=== PATIENT | male | born 1955 | race Caucasian/White ===

== ENCOUNTER 2019-10-23 06:54 | Day surgery (SDC) | payer BC ==
[~2019-10-23] VITALS: Ht 180.3 cm; Wt 95.5 kg
[~2019-10-23 06:54] MED LIST: INSU100I13 SQ; INSU100V31 SQ
[2019-10-23] MEDS ORDERED: LIDOCAINE 1% PF 2 ML VIAL. ID PRN (07:00)
[2019-10-23] MEDS ORDERED: fentaNYL PF VIAL 100 MCG/2 ML VIAL IV PRN (07:00)
[2019-10-23] MEDS ORDERED: IV RINGERS,LACTATED 1000ML 1,000 ML IV SCH (07:00)
[2019-10-23] MEDS ORDERED: HYDROmorphone 2 MG/ML VIAL IV PRN (07:00)
[2019-10-23] MEDS ORDERED: ONDANSETRON PF 4 MG/2 ML VIAL. IV PRN (07:00)
[2019-10-23] MEDS ORDERED: PROCHLORPERAZINE 10 MG/2 ML VIAL. IV PRN (07:00)
[2019-10-23] MEDS ORDERED: MORPHINE SULFATE 2 MG/ML VIAL. IV PRN (07:00)
[2019-10-23] MEDS: INSULIN LISPRO 100 UNIT/ML 3ML VIAL for OP,RR ONLY. SQ PRN ×3 (08:04→10:47)
--- NOTE | 2019-10-23 08:48 | RAD ---
EXAM: Neck sonogram. HISTORY: Abscess. TECHNIQUE: Sonographic imaging of the neck was performed. COMPARISON: None. FINDINGS: There is a heterogeneous complex fluid collection with overlying skin thickening within the posterior neck at the base of the scalp measuring 2.2 x 1.8 x 0.9 cm. IMPRESSION: 2.2 cm complex fluid collection within the posterior neck at the base of the scalp with overlying skin thickening. If there is cellulitis in this location, this may be an abscess/phlegmon. Correlate with physical exam findings. Electronically signed by: Evelyn Campbell MD (10/23/2019 8:45 AM) [facility]
[2019-10-23] MEDS ORDERED: BUPIVACAINE-EPI 0.5%-1:200000 MPF 30 ML VIAL. ONE (09:15)
[2019-10-23] MEDS ORDERED: SUCCINYLCHOLINE 200 MG/10 ML VIAL. ONE (09:29)
[2019-10-23] MEDS ORDERED: ROCURONIUM 50 MG/5 ML VIAL. ONE (09:29)
[2019-10-23] MEDS ORDERED: fentaNYL PF VIAL 100 MCG/2 ML VIAL ONE (09:30)
[2019-10-23] MEDS ORDERED: ceFAZolin 2GM PREMIX 2 GM/50 ML BAG IV ONE (10:00)
[2019-10-23] MEDS ORDERED: NEOMY/BACITR/POLYMYXIN OINT PACKET. TP ONE (10:08)
[2019-10-23] MEDS ORDERED: DEXAMETHASONE SOD PHOS 4 MG/ML VIAL ONE (10:12)
[2019-10-23] MEDS ORDERED: ONDANSETRON PF 4 MG/2 ML VIAL. ONE (10:12)
[2019-10-23] MEDS ORDERED: LIDOCAINE 2% PF 5 ML VIAL. ONE (10:12)
[2019-10-23] MEDS ORDERED: PROPOFOL 20 ML IV ONE (10:12)
[2019-10-23] MEDS ORDERED: FAMOTIDINE 20 MG/2 ML VIAL ONE (10:12)
[2019-10-23] MEDS ORDERED: SURGICEL HEMOSTAT 4X8 EACH. ONE (10:13)
--- NOTE | 2019-10-23 10:35 | DISCH ---
DISCHARGE INSTRUCTIONS Condition on Discharge Condition on Discharge: Stable Activity After Discharge Activity Instructions for Disc: Activity as tolerated, Avoid exertion Driving Instructions after Dis: Do not drive Diet after Discharge Diet after Discharge: Diabetic No Calorie Level Wound Incision Care Wound/Incision Care: Ice to area for comfort Other wound/incision instructi: leave dressing on, reinforce if needed Follow-Up Follow up with: Wolf 10/25 in office LEON CHOW MD Oct 23, 2019 10:34
--- NOTE | 2019-10-23 10:38 | PDOC ---
BRIEF OPERATIVE NOTE Date: Oct 23, 2019 Pre-Op Diagnosis abscess, posterior neck Post-Op Diagnosis same Procedure Performed excisional debridement of skin, subcutaneous tissue Surgeon Wolf Anesthesia Type: General Blood Loss 10cc IV Fluid 800cc Specimens Obtained cultures, skin and subcutaneous tissue posterior neck 7x5x2 cm Findings sebaceous cyst/abscess Complications none LEON CHOW MD Oct 23, 2019 10:38
[2019-10-23] MEDS: fentaNYL PF VIAL 100 MCG/2 ML VIAL IV PRN ×2 (10:57→11:03)
[2019-10-23] MEDS ORDERED: OXYC1TAB15 PO (11:02)
[2019-10-23] MEDS ORDERED: oxyCODONE/APAP 5/325 1 TAB TABLET PO ONE (11:15)
[2019-10-23] MEDS ORDERED: SODI473S25 MC (11:19)
[2019-10-23 11:25] VITALS: BP 138/82
--- NOTE | 2019-10-23 13:34 | OP ---
DATE OF SURGERY: 10/23/2019 PREOPERATIVE DIAGNOSIS: Abscess, posterior neck. POSTOPERATIVE DIAGNOSIS: Abscess, posterior neck. PROCEDURE: Excisional debridement of skin and subcutaneous tissue, posterior neck. SURGEON: Leon Chow MD ANESTHESIA: General endotracheal. ESTIMATED BLOOD LOSS: 10 mL. INTRAVENOUS FLUIDS: 800 mL. INDICATIONS FOR PROCEDURE: The patient is a 64-year-old insulin-dependent diabetic with an abscess posteriorly in the midline base of his skull. He is brought for debridement. DESCRIPTION OF PROCEDURE: The patient was brought to the operating suite, given a general endotracheal anesthetic, and placed in the prone position. Posterior neck was prepped and draped in usual sterile fashion. An elliptical incision was made with cautery and the underlying process was removed en bloc. Cultures were taken. Wound was irrigated with saline and checked for hemostasis. When present and a correct sponge count was obtained, the wound was dressed with Surgicel, 0.5-inch plain Nu Gauze soaked in saline, antibiotic ointment, 4x4s, and tape. The patient was taken out of the prone position, awakened from his anesthetic, and taken to the recovery room in satisfactory condition. LEON CHOW MD DR: SERGIO/fausto JOB#: [id number] / [id number]
--- NOTE | 2019-10-24 18:06 | PATHOLOGY ---
[facility] Accession Number: [id number] . 01 Material submitted: . neck - SKIN AND SUBCUTANEOUS TISSUE, POSTERIOR NECK. Modifiers: posterior . 01 Clinical history: . posterior neck abscess . 02 Diagnosis: Skin, subcutaneous tissue, and skeletal muscle tissue, incision and drainage posterior neck abscess - Acute cellulitis/abscess. 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 02 Electronically signed: . Marcel Salas MD, Pathologist NPI- [id number] . 01 Gross description: . The specimen is received in formalin, labeled "Jesús Smith, posterior neck" and consists of an elongate segment of skin measuring 3.5 x 0.5 cm which excised to a maximum depth of 2.8 cm. Sectioning reveals probable abscess and medical customer service representative sections are submitted in A1-A2. (SDY; 10/23/2019) SYU/SYU 10/23/2019 1641 Local . 02 Pathologist provided ICD-10: L02.11 . 02 CPT . 820955 Specimen Comment: A courtesy copy of this report has been sent to [phone], [phone] Specimen Comment: [id number] Specimen Comment: Report sent to / DR PATTERSON Performed at: 01 [facility] [address], [place] [id number] MD Semaj Crowley MD Phone: [phone] Performed at: 02 [facility] [address], [place] [id number] MD Marcel Salas MD Phone: [phone]
== END 2019-10-23 12:00 | disposition home or self-care (01) ==
LOC: SURG 06:54
PROVIDERS: ATTEND Surgery
DX: L02.11 Cutaneous abscess of neck (principal); L03.221 Cellulitis of neck; K31.89 Other diseases of stomach and duodenum; E11.9 Type 2 diabetes mellitus without complications; Z98.890 Other specified postprocedural states; Z91.041 Radiographic dye allergy status; Z79.4 Long term (current) use of insulin; Z79.899 Other long term (current) drug therapy
CPT/HCPCS: 11424; 36415; 76536; 82040; 82962; 87071; 87075; J0330; J1100; J2001; J2405; J2704; J3010; J3490; A7015; J0696; A4461

== ENCOUNTER 2020-02-12 10:36 | Inpatient (IN) | payer BC ==
[~2020-02-12] VITALS: Ht 177.8 cm; Wt 93.6 kg
[~2020-02-12 10:36] MED LIST changes: +OXYC1TAB15 PO; +SODI473S25 MC
[2020-02-12] MEDS ORDERED: IV NORMAL SALINE 1000ML BAG 1,000 ML IV SCH (11:58)
[2020-02-12] MEDS ORDERED: MORPHINE SULFATE 4 MG/ML VIAL. IV/SQ PRN (12:00)
[2020-02-12 12:28] LABS: BASO % 0 % (0-3); EOS # 0.1 x10^3/uL (0.0-0.7); EOS % 0 % (0-3); HEMATOCRIT 47.5 % (39.0-53.0); HEMOGLOBIN 15.7 g/dL (13.0-17.5); LYMPH # 1.3 x10^3/uL (1.0-4.8); LYMPH % 5 % (24-48); MEAN CORPUSCULAR HEMOGLOBIN 30 pg (25-35); MEAN CORPUSCULAR HGB CONC 33 g/dL (31-37); MEAN CORPUSCULAR VOLUME 92 fL (79-100); MONO # 2.1 x10^3/uL (0.0-1.1); MONO % 9 % (0-9); NEUT % 85 % (31-73); PLATELET COUNT 302 x10^3/uL (140-400); RED BLOOD COUNT 5.17 x10^6/uL (4.30-5.70); RED CELL DISTRIBUTION WIDTH 13.7 % (11.5-14.5); WHITE BLOOD COUNT 23.5 x10^3/uL (4.0-11.0)
[2020-02-12 12:45] LABS: CALCIUM 9.5 mg/dL (8.5-10.1); CREATININE 1.7 mg/dL (0.7-1.3); POTASSIUM 4.4 mmol/L (3.5-5.1)
[2020-02-12 12:49] LABS: ALBUMIN 2.6 g/dL (3.4-5.0); ALBUMIN/GLOBULIN RATIO 0.5 (1.0-1.7); TOTAL BILIRUBIN 1.1 mg/dL (0.2-1.0); TOTAL PROTEIN 7.9 g/dL (6.4-8.2)
[2020-02-12] MEDS ORDERED: PIPERACILLIN/TAZOBACTAM 4.5 GM in IV NORMAL SALINE 100ML 100 ML IV ONE (13:00)
[2020-02-12] MEDS ORDERED: VANCOMYCIN 2 GM in IV NORMAL SALINE 500ML BAG 500 ML IV ONE (13:00)
[2020-02-12] MEDS ORDERED: IOHEXOL 300 MG/ML 100ML VIAL. IV ONE (13:15)
[2020-02-12] MEDS ORDERED: VANCOMYCIN 1.25 GM in IV NORMAL SALINE 250ML 250 ML IV ONE (13:15)
--- NOTE | 2020-02-12 13:43 | RAD ---
Exam: CT abdomen/pelvis with intravenous contrast Indication: Pilonidal cyst. Comparison: None Technique: Helical CT imaging performed of the abdomen and pelvis after the intravenous administration of 60 mL Omnipaque 300 intravenous contrast. Sagittal and coronal reformats were obtained. One or more of the following individualized dose reduction techniques were utilized for this examination: 1. Automated exposure control 2. Adjustment of the mA and/or kV according to patient size 3. Use of iterative reconstruction technique. Findings: The exam is limited by suboptimal patient positioning. Lower chest: Mild atelectasis in the medial right upper lobe and lingula. Heart is normal in size. There is calcific coronary artery atherosclerosis. Liver: The liver is normal in size without focal lesion. Gallbladder/Biliary Tree: Postcholecystectomy. Prominent common bile duct with distal tapering, likely related to postcholecystectomy state. Pancreas: Moderate fatty atrophy of the pancreas. Spleen: No splenomegaly. There is a calcified splenic granuloma. Adrenal Glands: The right adrenal gland is not visualized. Left adrenal gland is normal. Kidneys/Ureters/Bladder: There are surgical changes of right nephrectomy. Left kidney and ureter are normal. No hydronephrosis. Bladder is normal. Reproductive Organs: Prostate gland is normal. Stomach, small bowel, and colon: The stomach and small bowel are normal. There is sigmoid diverticulosis and questionable focal wall thickening in the sigmoid colon with subtle adjacent fat stranding (image [id number], series 2). The colon is otherwise normal. Appendix is normal. Vasculature: Abdominal aorta is normal in caliber. Lymph Nodes: Nonspecific 1.1 cm short axis malathi habitus lymph node. No suspicious lymphadenopathy. Peritoneum and retroperitoneum: No free fluid or free air. Bones: No acute fracture or suspicious osseous lesion. Lumbar facet arthrosis is noted. Miscellaneous: There is fat stranding and soft tissue thickening along the intergluteal cleft, greater on the left for there is a vague area of hypoattenuation in the subcutaneous soft tissue just deep to the skin that may be a poorly formed abscess. This measures roughly 5 x 2 x 4 cm (AP by transverse by CC) and extends anteriorly toward the perineum. Soft tissue thickening extends cranially to the lower sacrum. No definite perianal or perirectal abscess. Impression: 1. Limited exam due to patient positioning. 2. Fat stranding and soft tissue thickening along the intergluteal cleft on the left with a vague area of hypoattenuation just deep to the skin may be a poorly formed/developing abscess. This measures approximately 5 x 2 x 4 cm (AP by transverse by CC) and extends toward the perineum. No definite perianal or perirectal abscess. 3. Sigmoid diverticulosis with a short segment of questionable mild wall thickening and subtle pericolonic inflammation. Correlate clinically for acute diverticulitis. 4. Post right nephrectomy. Electronically signed by: Meghan Penaloza MD (02/12/2020 1:40 PM) [id number]
[2020-02-12] MEDS ORDERED: IV NORMAL SALINE 1000ML BAG 1,000 ML IV ONE (14:00)
[2020-02-12] MEDS ORDERED: IV NORMAL SALINE 500ML BAG 500 ML IV ONE (14:00)
[2020-02-12 14:18] LABS: % BANDS 14 % (0-9); % LYMPHS 4 % (24-48); % MONOS 7 % (0-10); % SEGS 75 % (35-66); PLT ESTIMATE ADEQUATE (ADEQUATE)
--- NOTE | 2020-02-12 15:01 | PHYS DOC ---
Past Medical History Past Medical History: Diabetes-Type II Smoking Status: Never Smoker Alcohol Use: None General Adult EDM: Chief Complaint: ABSCESS HPI: HPI: 64-year-old male past medical history significant for insulin-dependent diabetes, no known history of MRSA, presents to the ED with complaints of painful sore buttock lesion for the past 4 days. Patient reports he was in urgent care clinic yesterday and they attempted to "carlos it." Denies any active drainage. Was not started on any antibiotics. Now reports generalized weakne ss, anorexia, and subjective chills. Takes no routine steroids, no immunocompromise state. H/o abscess on his neck a few years ago. No h/o IVDU. ROS: Denies associated fever, cough, sore throat, n/v/d/c, neck stiffness, headache, chest pain, dyspnea, leg swelling, melena, hematochezia, midline back pain, dysuria, hematuria or genital swelling. Review of Systems: Review of Systems: Constitutional: Denies fever or chills. [] Eyes: Denies change in visual acuity. [] HENT: Denies nasal congestion or sore throat. [] Respiratory: Denies cough or shortness of breath. [] Cardiovascular: Denies chest pain or edema. [] GI: Denies abdominal pain, nausea, vomiting, bloody stools or diarrhea. [] : Denies dysuria. [] Musculoskeletal: Denies back pain or joint pain. [] Integument: Denies rash. [] Neurologic: Denies headache, focal weakness or sensory changes. [] Endocrine: Denies polyuria or polydipsia. [] Lymphatic: Denies swollen glands. [] Psychiatric: Denies depression or anxiety. [] Heart Score: Risk Factors: Risk Factors: DM, Current or recent (<one month) smoker, HTN, HLP, family history of CAD, obesity. Risk Scores: Score 0 - 3: 2.5% MACE over next 6 weeks - Discharge Home Score 4 - 6: 20.3% MACE over next 6 weeks - Admit for Clinical Observation Score 7 - 10: 72.7% MACE over next 6 weeks - Early Invasive Strategies Current Medications: Current Medications Medications (Trade) Dose Ordered Sig/Ty Start Time Stop Time Status Last Admin Dose Admin Iohexol (Omnipaque 300 Mg/ml) 60 ml 1X ONCE 02/12/20 13:15 02/12/20 13:16 DC 02/12/20 13:09 60 ML Morphine Sulfate (Morphine Sulfate) 4 mg PRN Q15MIN PRN 02/12/20 12:00 02/13/20 11:59 02/12/20 12:31 4 MG Piperacillin Sod/ Tazobactam Sod 4.5 gm/Sodium Chloride 100 ml @ 200 mls/hr 1X ONCE 02/12/20 13:00 02/12/20 13:29 DC 02/12/20 13:54 200 MLS/HR Sodium Chloride 500 ml @ 500 mls/hr 1X ONCE 02/12/20 14:00 02/12/20 14:59 02/12/20 14:09 500 MLS/HR Vancomycin HCl 1.25 gm/Sodium Chloride 250 ml @ 166.667 mls/hr 1X ONCE 02/12/20 13:15 02/12/20 14:44 DC 02/12/20 14:33 166.667 MLS/HR Vancomycin HCl 2 gm/Sodium Chloride 500 ml @ 250 mls/hr 1X ONCE 02/12/20 13:00 02/12/20 14:59 UNV Allergies: Allergies: Allergies Coded Allergies Type Severity Reaction Last Updated Verified yellow dye Allergy Intermediate Rash 10/22/19 Yes Physical Exam: PE: Constitutional: Well developed, well nourished, no acute distress, uncomfortable appearing, not toxic appearing HENT: Normocephalic, atraumatic, bilateral external ears normal, oropharynx moist, no oral exudates, nose normal. [] Eyes: P\\\\EOMI, conjunctiva normal, no discharge. [] Neck: Normal range of motion, no tenderness, supple, no stridor. [] Cardiovascular:Heart rate regular rhythm, no murmur [] Lungs & Thorax: Bilateral breath sounds clear to auscultation [] Abdomen: Bowel sounds normal, soft, no tenderness, no masses, no pulsatile masses. [] Skin: Warm, dry, no erythema, no rash. [] Back: No tenderness, no CVA tenderness. [] Extremities: No tenderness, no cyanosis, no clubbing, ROM intact, no edema. [] Neurologic: Alert and oriented X 3, normal motor function, normal sensory function, no focal deficits noted. [] Psychologic: Affect normal, judgement normal, mood normal. [] Rectal: Chaperoned by RN, bilateral induration with erythema over both gluteal clefts approximately 4 x 8 cm bilaterally, does not extend into the perineum with no erythema in the perineum, no palpable crepitus, at apex of gluteal fold -some scant yellow discharge-unable to fully express due to induration and pain Current Patient Data: Labs: Laboratory Tests Test 02/12/20 12:11 White Blood Count 23.5 x10^3/uL (4.0-11.0) H Red Blood Count 5.17 x10^6/uL (4.30-5.70) Hemoglobin 15.7 g/dL (13.0-17.5) Hematocrit 47.5 % (39.0-53.0) Mean Corpuscular Volume 92 fL (79-100) Mean Corpuscular Hemoglobin 30 pg (25-35) Mean Corpuscular Hemoglobin Concent 33 g/dL (31-37) Red Cell Distribution Width 13.7 % (11.5-14.5) Platelet Count 302 x10^3/uL (140-400) Neutrophils (%) (Auto) 85 % (31-73) H Lymphocytes (%) (Auto) 5 % (24-48) L Monocytes (%) (Auto) 9 % (0-9) Eosinophils (%) (Auto) 0 % (0-3) Basophils (%) (Auto) 0 % (0-3) Neutrophils # (Auto) 20.0 x10^3/uL (1.8-7.7) H Lymphocytes # (Auto) 1.3 x10^3/uL (1.0-4.8) Monocytes # (Auto) 2.1 x10^3/uL (0.0-1.1) H Eosinophils # (Auto) 0.1 x10^3/uL (0.0-0.7) Basophils # (Auto) 0.0 x10^3/uL (0.0-0.2) Segmented Neutrophils % 75 % (35-66) H Band Neutrophils % 14 % (0-9) H Lymphocytes % 4 % (24-48) L Monocytes % 7 % (0-10) Dohle Bodies Few Platelet Estimate Adequate (ADEQUATE) Prothrombin Time 14.0 SEC (11.7-14.0) Prothrombin Time INR 1.1 (0.8-1.1) Activated Partial Thromboplast Time 30 SEC (24-38) Sodium Level 127 mmol/L (136-145) L Potassium Level 4.4 mmol/L (3.5-5.1) Chloride Level 90 mmol/L (98-107) L Carbon Dioxide Level 17 mmol/L (21-32) L Anion Gap 20 (6-14) H Blood Urea Nitrogen 21 mg/dL (8-26) Creatinine 1.7 mg/dL (0.7-1.3) H Estimated GFR (Cockcroft-Gault) 41.0 BUN/Creatinine Ratio 12 (6-20) Glucose Level 453 mg/dL (70-99) H Lactic Acid Level 2.7 mmol/L (0.4-2.0) H Calcium Level 9.5 mg/dL (8.5-10.1) Total Bilirubin 1.1 mg/dL (0.2-1.0) H Aspartate Amino Transferase (AST) 33 U/L (15-37) Alanine Aminotransferase (ALT) 24 U/L (16-63) Alkaline Phosphatase 243 U/L (46-116) H Total Protein 7.9 g/dL (6.4-8.2) Albumin 2.6 g/dL (3.4-5.0) L Albumin/Globulin Ratio 0.5 (1.0-1.7) L Laboratory Tests 02/12/20 12:11 Laboratory Tests 02/12/20 12:11 Vital Signs: Vital Signs Date Time Temp Pulse Resp B/P (MAP) Pulse Ox O2 Delivery O2 Flow Rate FiO2 02/12/20 13:50 16 98 Room Air 02/12/20 11:40 98.2 111 145/76 (99) 98.2 EKG: EKG: [] Radiology/Procedures: Radiology/Procedures: IMAGING REPORT Signed PATIENT: MARIA LUISA MANLEY MACCOUNT: [id number] : 1955 LOCATION: ER AGE: 64 SEX: M EXAM STATUS: REG ER ORD. PHYSICIAN: ARINA PEARSON DO REASON: pilonidal? PROCEDURE: CT ABD PELV W/ IV CONTRST ONLY Exam: CT abdomen/pelvis with intravenous contrast Indication: Pilonidal cyst. Comparison: None Technique: Helical CT imaging performed of the abdomen and pelvis after the intravenous administration of 60 mL Omnipaque 300 intravenous contrast. Sagittal and coronal reformats were obtained. One or more of the following individualized dose reduction techniques were utilized for this examination: 1. Automated exposure control 2. Adjustment of the mA and/or kV according to patient size 3. Use of iterative reconstruction technique. Findings: The exam is limited by suboptimal patient positioning. Lower chest: Mild atelectasis in the medial right upper lobe and lingula. Heart is normal in size. There is calcific coronary artery atherosclerosis. Liver: The liver is normal in size without focal lesion. Gallbladder/Biliary Tree: Postcholecystectomy. Prominent common bile duct with distal tapering, likely related to postcholecystectomy state. Pancreas: Moderate fatty atrophy of the pancreas. Spleen: No splenomegaly. There is a calcified splenic granuloma. Adrenal Glands: The right adrenal gland is not visualized. Left adrenal gland is normal. Kidneys/Ureters/Bladder: There are surgical changes of right nephrectomy. Left kidney and ureter are normal. No hydronephrosis. Bladder is normal. Reproductive Organs: Prostate gland is normal. Stomach, small bowel, and colon: The stomach and small bowel are normal. There is sigmoid diverticulosis and questionable focal wall thickening in the sigmoid colon with subtle adjacent fat stranding (image [id number], series 2). The colon is otherwise normal. Appendix is normal. Vasculature: Abdominal aorta is normal in caliber. Lymph Nodes: Nonspecific 1.1 cm short axis malathi habitus lymph node. No suspicious lymphadenopathy. Peritoneum and retroperitoneum: No free fluid or free air. Bones: No acute fracture or suspicious osseous lesion. Lumbar facet arthrosis is noted. Miscellaneous: There is fat stranding and soft tissue thickening along the intergluteal cleft, greater on the left for there is a vague area of hypoattenuation in the subcutaneous soft tissue just deep to the skin that may be a poorly formed abscess. This measures roughly 5 x 2 x 4 cm (AP by transverse by CC) and extends anteriorly toward the perineum. Soft tissue thickening extends cranially to the lower sacrum. No definite perianal or perirectal abscess. Impression: 1. Limited exam due to patient positioning. 2. Fat stranding and soft tissue thickening along the intergluteal cleft on the left with a vague area of hypoattenuation just deep to the skin may be a poorly formed/developing abscess. This measures approximately 5 x 2 x 4 cm (AP by transverse by CC) and extends toward the perineum. No definite perianal or perirectal abscess. 3. Sigmoid diverticulosis with a short segment of questionable mild wall thickening and subtle pericolonic inflammation. Correlate clinically for acute diverticulitis. 4. Post right nephrectomy. Electronically signed by: Meghan Penaloza MD (02/12/2020 1:40 PM) [id number] DICTATED and SIGNED BY: MEGHAN PENALOZA MD DATE: 02/12/20 1340 Impression: Concern for severe sepsis (LA 2.7, wbc 23 w/14 bands, tachycardic) with gluteal abscess - close monitoring for nec fasc/fourniers, pt to be admitted. D/w surgery, Dr. Egan-NPO at midnight, likely OR in am. Pt to be admitted to medical service-agrees with plan. Course & Med Decision Making: Course & Med Decision Making Pertinent Labs and Imaging studies reviewed. (See chart for details) [] Jose Disclaimer: Jose Disclaimer: This electronic medical record was generated, in whole or in part, using a voice recognition dictation system. Departure Departure Impression: Primary Impression: Severe sepsis Additional Impression: Gluteal abscess Disposition: 09 ADMITTED INPATIENT Admitting Physician: BLADIMIR Condition: STABLE Referrals: CORY PATTERSON MD (PCP) ARINA PEARSON DO February 12, 2020 15:01
[2020-02-12] MEDS ORDERED: ONDANSETRON PF 4 MG/2 ML VIAL. IV PRN (15:15)
[2020-02-12] MEDS ORDERED: INSULIN REGULAR 100 UNIT/ML 3ML VIAL. IV ONE (15:45)
[2020-02-12 16:58] VITALS: BP 133/76
[2020-02-12] MEDS ORDERED: INSU100I13 SQ (17:32)
[2020-02-12] MEDS ORDERED: INSU100C4 SQ (17:34)
[2020-02-12] MEDS: PIPERACILLIN/TAZOBACTAM 3.375 GM in IV NORMAL SALINE 50ML 50 ML IV SCH (18:09)
[2020-02-12] MEDS: IV NORMAL SALINE 1000ML BAG 1,000 ML IV SCH (18:11)
[2020-02-12 19:00] VITALS: BP 119/64
[2020-02-12] MEDS: MORPHINE SULFATE 4 MG/ML VIAL. IV PRN (21:18)
[2020-02-12] MEDS: INSULIN GLARGINE SYRINGE. SQ SCH (21:20)
--- NOTE | 2020-02-12 21:58 | HP ---
ADMIT DATE: 02/12/2020 CHIEF COMPLAINT: Gluteal abscess. HISTORY OF PRESENT ILLNESS: The patient is a pleasant middle-aged male who is diabetic and basically presented to the ER with gluteal pain. He has an abscess there. I discussed the case with the ER physician. We are going to admit the patient, give him V antibiotics and consult General Surgery. PAST MEDICAL HISTORY: Diabetes. ALLERGIES: YELLOW DYE. FAMILY HISTORY: Coronary artery disease. SOCIAL HISTORY: Does not drink, smoke or take drugs. MEDICATIONS: Reviewed, please refer to the MRAD. REVIEW OF SYSTEMS: GENERAL: No history of weight change, weakness or fevers. SKIN: No bruising, hair changes or rashes. EYES: No blurred, double or loss of vision. NOSE AND THROAT: No history of nosebleeds, hoarseness or sore throat. HEART: No history of palpitations, chest pain or shortness of breath on exertion. LUNGS: Denies cough, hemoptysis, wheezing or shortness of breath. GASTROINTESTINAL: Denies changes in appetite, nausea, vomiting, diarrhea or constipation. He complains of gluteal abscess. GENITOURINARY: No history of frequency, urgency, hesitancy or nocturia. NEUROLOGIC: Denies history of numbness, tingling, tremor or weakness. PSYCHIATRIC: No history of panic, anxiety or depression. ENDOCRINE: No history of heat or cold intolerance, polyuria or polydipsia. EXTREMITIES: Denies muscle weakness, joint pain, pain on walking or stiffness. PHYSICAL EXAMINATION: VITALS: Within normal limits and are stable. GENERAL: No apparent distress. Alert and oriented. HEENT: Normal cephalic atraumatic, external auditory canals are patent EYES: Extraocular muscles are intact, pupils are equally round and reactive to light and accommodation MUSCULOSKELETAL: Well developed, well nourished, good range of motion ENDOCRINE: No thyromegaly was palpated LYMPHATICS: No cervical chain or axillary nodes were noted HEMATOPOIETIC: No bruising NECK: Supple, no JVD, no thyromegaly was noted. LUNGS: Clear to auscultation in all lung [place] without rhonchi or wheezing. HEART: RRR, S1, S2 present. Peripheral pulses intact, no obvious murmurs were noted. ABDOMEN: Soft, nontender. Positive bowel sounds no organomegaly, normal bowel sounds. He has got a gluteal abscess. EXTREMITIES: Without any cyanosis, clubbing, or edema. Pedal pulses intact, Homans sign is negative. NEUROLOGIC: Normal speech, normal tone. A & O x3, moves all extremities, no obvious focal deficits. PSYCHIATRIC: Normal affect, normal mood. Stable. SKIN: No ulcerations or rashes, good skin turgor, no jaundice. VASCULAR: Good capillary refill, neurovascular bundle appears to be intact. LABORATORY DATA: White count is 23. ASSESSMENT AND PLAN: Gluteal abscess. The patient will be admitted. We will start IV antibiotics. Consult Infectious Disease. Consult General Surgery. Home meds, DVT prophylaxis. Full code. PAPITO HERNANDEZ DO DR: KECIA/fausto JOB#: [id number] / [id number]
[2020-02-12 23:14] VITALS: BP 98/55
[2020-02-13] VITALS (13 sets, daily range): BP systolic 85–102; BP diastolic 46–64
[2020-02-13] MEDS: PIPERACILLIN/TAZOBACTAM 3.375 GM in IV NORMAL SALINE 50ML 50 ML IV SCH ×3 (00:07→18:08)
[2020-02-13] MEDS: MORPHINE SULFATE 4 MG/ML VIAL. IV PRN (01:36)
[2020-02-13] MEDS: IV NORMAL SALINE 1000ML BAG 1,000 ML IV SCH ×3 (03:30→21:19)
--- NOTE | 2020-02-13 08:04 | NUR ---
paper charted do to computers being down Addendum: 02/13/20 at 0805 by CARLOS A AUSTIN RN Amended: Links added.
--- NOTE | 2020-02-13 08:12 | NUR ---
in chart- computers down Addendum: 02/13/20 at 0812 by CARLOS A AUSTIN RN Amended: Links added.
--- NOTE | 2020-02-13 08:30 | PDOC2 ---
CONSULT Date of Consult Date of Consult DATE: 02/13/20 TIME: 08:28 Reason for Consult Reason for Consult: Gluteal abscess Referring Physician Referring Physician: Jerry Identification/Chief Complaint Chief Complaint Buttock pain with drainage Source Source: Chart review, Patient History of Present Illness Reason for Visit: 64-year-old male with diabetes came to the emergency department for evaluation of buttock pain with drainage found to have left gluteal abscess with erythema elevated white count and fever. CT scan of the area shows inflammatory changes consistent with cellulitis and possible abscess Past Medical History Cardiovascular: HTN Endocrine: Diabetes Past Surgical History Past Surgical History: Other Family History Family History: Diabetes, Hypertension Current Problem List Problem List Problems Medical Problems: (1) Gluteal abscess Status: Acute (2) Severe sepsis Status: Acute Current Medications Current Medications Current Medications Morphine Sulfate (Morphine Sulfate) 4 mg PRN Q15MIN PRN IV/SQ PAIN GREATER THAN 3/10 Last administered on 02/12/20at 12:31; Start 02/12/20 at 12:00; Stop 0 at 17:37; Status DC Sodium Chloride 1,000 ml @ 1,000 mls/hr Q1H IV Last administered on 02/12/20at 12:31; Start 02/12/20 at 11:58; Stop 02/12/20 at 12:57; Status DC Vancomycin HCl 2 gm/Sodium Chloride 500 ml @ 250 mls/hr 1X ONCE IV ; Start 02/12/20 at 13:00; Stop 02/12/20 at 14:59; Status UNV Piperacillin Sod/ Tazobactam Sod 4.5 gm/Sodium Chloride 100 ml @ 200 mls/hr 1X ONCE IV Last administered on 02/12/20at 13:54; Start 02/12/20 at 13:00; Stop 02/12/20 at 13:29; Status DC Vancomycin HCl 1.25 gm/Sodium Chloride 250 ml @ 166.667 mls/hr 1X ONCE IV Last administered on 02/12/20at 14:33; Start 02/12/20 at 13:15; Stop 02/12/20 at 14:44; Status DC Iohexol (Omnipaque 300 Mg/ml) 60 ml 1X ONCE IV Last administered on 02/12/20at 13:09; Start 02/12/20 at 13:15; Stop 02/12/20 at 13:16; Status DC Sodium Chloride 1,000 ml @ 1,000 mls/hr 1X ONCE IV Last administered on 02/12/20at 14:08; Start 02/12/20 at 14:00; Stop 02/12/20 at 14:59; Status DC Sodium Chloride 500 ml @ 500 mls/hr 1X ONCE IV Last administered on 02/12/20at 14:09; Start 02/12/20 at 14:00; Stop 02/12/20 at 14:59; Status DC Ondansetron HCl (Zofran) 4 mg PRN Q8HRS PRN IV NAUSEA/VOMITING; Start 02/12/20 at 15:15; Stop 02/13/20 at 15:14 Morphine Sulfate (Morphine Sulfate) 4 mg PRN Q2HR PRN IV PAIN Last administered on 02/13/20at 01:36; Start 02/12/20 at 15:15; Stop 02/13/20 at 15:14 Insulin Human Regular (HumuLIN R VIAL) 8 unit 1X ONCE IV Last administered on 02/12/20at 16:02; Start 02/12/20 at 15:45; Stop 02/12/20 at 15:46; Status DC Sodium Chloride 1,000 ml @ 100 mls/hr Q10H IV Last administered on 02/12/20at 18:11; Start 02/12/20 at 17:30 Piperacillin Sod/ Tazobactam Sod 3.375 gm/Sodium Chloride 50 ml @ 100 mls/hr Q6HRS IV Last administered on 02/13/20at 00:07; Start 02/12/20 at 18:00 Oxycodone/ Acetaminophen (Percocet 5/325) 1 tab PRN Q4HRS PRN PO PAIN; Start 02/12/20 at 17:45 Insulin Human Lispro (HumaLOG) 8 units TIDAC SQ ; Start 02/13/20 at 07:30 Insulin Glargine (Lantus Syringe) 25 unit QHS SQ Last administered on 02/12/20at 21:20; Start 02/12/20 at 21:00 Active Scripts Active Percocet 5-325 Mg Tablet (Oxycodone/Acetaminophen) 1 Each Tablet 1 Tab PO PRN Q4HRS PRN 7 Days Reported Novolog (Insulin Aspart) 100 Unit/1 Ml Cartridge 8 Unit SQ TIDAC Lantus Solostar (Insulin Glargine,Hum.rec.anlog) 100 Unit/1 Ml Insuln.pen 25 Unit SQ QHS Allergies Allergies: Coded Allergies: yellow dye (Verified Allergy, Intermediate, Rash, 10/22/19) ROS Gastrointestinal: Yes Other (Gluteal pain with drainage) Physical Exam General: Alert, Oriented X3, Cooperative, moderate distress HEENT: Atraumatic Lungs: Clear to auscultation, Normal air movement Heart: Regular rate, No murmurs Abdomen: Normal bowel sounds, Soft, No tenderness Extremities: No edema Skin: Other (Left gluteal erythema tenderness with small wound and purulent drainage) Neuro: Normal speech Psych/Mental Status: Mental status NL Vitals VITALS Vital Signs Date Time Temp Pulse Resp B/P (MAP) Pulse Ox O2 Delivery O2 Flow Rate FiO2 02/13/20 07:00 97.8 102 20 101/52 (68) 97 Room Air 97.8 Labs Labs Laboratory Tests Test 02/12/20 12:11 02/12/20 15:38 02/12/20 15:56 02/12/20 16:53 White Blood Count 23.5 x10^3/uL (4.0-11.0) Red Blood Count 5.17 x10^6/uL (4.30-5.70) Hemoglobin 15.7 g/dL (13.0-17.5) Hematocrit 47.5 % (39.0-53.0) Mean Corpuscular Volume 92 fL (79-100) Mean Corpuscular Hemoglobin 30 pg (25-35) Mean Corpuscular Hemoglobin Concent 33 g/dL (31-37) Red Cell Distribution Width 13.7 % (11.5-14.5) Platelet Count 302 x10^3/uL (140-400) Neutrophils (%) (Auto) 85 % (31-73) Lymphocytes (%) (Auto) 5 % (24-48) Monocytes (%) (Auto) 9 % (0-9) Eosinophils (%) (Auto) 0 % (0-3) Basophils (%) (Auto) 0 % (0-3) Neutrophils # (Auto) 20.0 x10^3/uL (1.8-7.7) Lymphocytes # (Auto) 1.3 x10^3/uL (1.0-4.8) Monocytes # (Auto) 2.1 x10^3/uL (0.0-1.1) Eosinophils # (Auto) 0.1 x10^3/uL (0.0-0.7) Basophils # (Auto) 0.0 x10^3/uL (0.0-0.2) Segmented Neutrophils % 75 % (35-66) Band Neutrophils % 14 % (0-9) Lymphocytes % 4 % (24-48) Monocytes % 7 % (0-10) Dohle Bodies Few Platelet Estimate Adequate (ADEQUATE) Prothrombin Time 14.0 SEC (11.7-14.0) Prothromb Time International Ratio 1.1 (0.8-1.1) Activated Partial Thromboplast Time 30 SEC (24-38) Sodium Level 127 mmol/L (136-145) Potassium Level 4.4 mmol/L (3.5-5.1) Chloride Level 90 mmol/L (98-107) Carbon Dioxide Level 17 mmol/L (21-32) Anion Gap 20 (6-14) Blood Urea Nitrogen 21 mg/dL (8-26) Creatinine 1.7 mg/dL (0.7-1.3) Estimated GFR (Cockcroft-Gault) 41.0 BUN/Creatinine Ratio 12 (6-20) Glucose Level 453 mg/dL (70-99) Lactic Acid Level 2.7 mmol/L (0.4-2.0) 1.2 mmol/L (0.4-2.0) Calcium Level 9.5 mg/dL (8.5-10.1) Total Bilirubin 1.1 mg/dL (0.2-1.0) Aspartate Amino Transf (AST/SGOT) 33 U/L (15-37) Alanine Aminotransferase (ALT/SGPT) 24 U/L (16-63) Alkaline Phosphatase 243 U/L (46-116) Total Protein 7.9 g/dL (6.4-8.2) Albumin 2.6 g/dL (3.4-5.0) Albumin/Globulin Ratio 0.5 (1.0-1.7) Glucose (Fingerstick) 330 mg/dL (70-99) 241 mg/dL (70-99) Test 02/12/20 20:25 02/13/20 07:54 Glucose (Fingerstick) 275 mg/dL (70-99) 331 mg/dL (70-99) Laboratory Tests Test 02/12/20 12:11 02/12/20 15:38 02/12/20 15:56 02/12/20 16:53 White Blood Count 23.5 x10^3/uL (4.0-11.0) Red Blood Count 5.17 x10^6/uL (4.30-5.70) Hemoglobin 15.7 g/dL (13.0-17.5) Hematocrit 47.5 % (39.0-53.0) Mean Corpuscular Volume 92 fL (79-100) Mean Corpuscular Hemoglobin 30 pg (25-35) Mean Corpuscular Hemoglobin Concent 33 g/dL (31-37) Red Cell Distribution Width 13.7 % (11.5-14.5) Platelet Count 302 x10^3/uL (140-400) Neutrophils (%) (Auto) 85 % (31-73) Lymphocytes (%) (Auto) 5 % (24-48) Monocytes (%) (Auto) 9 % (0-9) Eosinophils (%) (Auto) 0 % (0-3) Basophils (%) (Auto) 0 % (0-3) Neutrophils # (Auto) 20.0 x10^3/uL (1.8-7.7) Lymphocytes # (Auto) 1.3 x10^3/uL (1.0-4.8) Monocytes # (Auto) 2.1 x10^3/uL (0.0-1.1) Eosinophils # (Auto) 0.1 x10^3/uL (0.0-0.7) Basophils # (Auto) 0.0 x10^3/uL (0.0-0.2) Segmented Neutrophils % 75 % (35-66) Band Neutrophils % 14 % (0-9) Lymphocytes % 4 % (24-48) Monocytes % 7 % (0-10) Dohle Bodies Few Platelet Estimate Adequate (ADEQUATE) Prothrombin Time 14.0 SEC (11.7-14.0) Prothromb Time International Ratio 1.1 (0.8-1.1) Activated Partial Thromboplast Time 30 SEC (24-38) Sodium Level 127 mmol/L (136-145) Potassium Level 4.4 mmol/L (3.5-5.1) Chloride Level 90 mmol/L (98-107) Carbon Dioxide Level 17 mmol/L (21-32) Anion Gap 20 (6-14) Blood Urea Nitrogen 21 mg/dL (8-26) Creatinine 1.7 mg/dL (0.7-1.3) Estimated GFR (Cockcroft-Gault) 41.0 BUN/Creatinine Ratio 12 (6-20) Glucose Level 453 mg/dL (70-99) Lactic Acid Level 2.7 mmol/L (0.4-2.0) 1.2 mmol/L (0.4-2.0) Calcium Level 9.5 mg/dL (8.5-10.1) Total Bilirubin 1.1 mg/dL (0.2-1.0) Aspartate Amino Transf (AST/SGOT) 33 U/L (15-37) Alanine Aminotransferase (ALT/SGPT) 24 U/L (16-63) Alkaline Phosphatase 243 U/L (46-116) Total Protein 7.9 g/dL (6.4-8.2) Albumin 2.6 g/dL (3.4-5.0) Albumin/Globulin Ratio 0.5 (1.0-1.7) Glucose (Fingerstick) 330 mg/dL (70-99) 241 mg/dL (70-99) Test 02/12/20 20:25 02/13/20 07:54 Glucose (Fingerstick) 275 mg/dL (70-99) 331 mg/dL (70-99) Assessment/Plan Assessment/Plan Left gluteal abscess plan incision and drainage CARRIE SRIVASTAVA MD February 13, 2020 08:30
[2020-02-13] MEDS ORDERED: SEVOFLURANE 61 TO 120 MINUTES. IH ONE (08:36)
[2020-02-13] MEDS ORDERED: ROCURONIUM 50 MG/5 ML VIAL. ONE (08:36)
[2020-02-13] MEDS ORDERED: NEOSTIGMINE METHYLSULFATE 5 MG/5 ML SYRINGE. ONE (08:36)
[2020-02-13] MEDS ORDERED: MIDAZOLAM HCL/PF 2 MG/2 ML VIAL. ONE (08:36)
[2020-02-13] MEDS ORDERED: GLYCOPYRROLATE 1 MG/5 ML VIAL. ONE (08:36)
[2020-02-13] MEDS ORDERED: fentaNYL PF VIAL 100 MCG/2 ML VIAL ONE (08:36)
[2020-02-13] MEDS ORDERED: SUCCINYLCHOLINE 200 MG/10 ML VIAL. ONE (08:37)
[2020-02-13] MEDS: INSULIN LISPRO 300 UNITS/3 ML VIAL. SQ SCH ×3 (08:40→18:13)
[2020-02-13] MEDS ORDERED: BUPIVACAINE-EPI 0.5%-1:200000 MPF 30 ML VIAL. ONE (08:54)
[2020-02-13] MEDS ORDERED: IV RINGERS,LACTATED 1000ML 1,000 ML IV SCH (09:01)
[2020-02-13 09:15] LABS: MAGNESIUM 1.8 mg/dL (1.8-2.4); POTASSIUM 3.7 mmol/L (3.5-5.1)
[2020-02-13] MEDS ORDERED: fentaNYL PF VIAL 100 MCG/2 ML VIAL IV PRN ×2 (09:15)
[2020-02-13] MEDS ORDERED: MORPHINE SULFATE 2 MG/ML VIAL. IV PRN (09:15)
[2020-02-13] MEDS ORDERED: HYDROmorphone 2 MG/ML VIAL IV PRN (09:15)
[2020-02-13] MEDS ORDERED: LIDOCAINE 1% PF 2 ML VIAL. ID PRN (09:15)
[2020-02-13] MEDS ORDERED: ONDANSETRON PF 4 MG/2 ML VIAL. IV PRN (09:15)
[2020-02-13] MEDS ORDERED: PROCHLORPERAZINE 10 MG/2 ML VIAL. IV PRN (09:15)
[2020-02-13] MEDS ORDERED: PHENYLEPHRINE in 0.9% NACL PF 1 MG/10 ML SYRINGE. IV ONE (09:27)
--- NOTE | 2020-02-13 10:03 | PDOC4 ---
Operative Note Operative Note Date: 02/13/2020 Preoperative diagnosis: Left gluteal abscess Postoperative diagnosis: Same Procedure: Left gluteal abscess incision and drainage with debridement Surgeon: Lew Specimen: Cultures Dictation: Patient is a 64-year-old diabetic gentleman who admitted to the hospital with a left gluteal abscess. Procedure of incision and drainage with debridement was explained to the patient in detail was benefits were also discussed occluding bleeding infection alternatives to this procedure also discussed with the patient who seemed to understand and gave both verbal and w ritten consent to have the procedure performed. Patient was taken to the operating room placed in the supine position general anesthesia was initiated once patient was sleeping intubated was then repositioned in prone positioning and his buttocks was prepped and draped in usual sterile fashion using Betadine solution. The area of inflammation on the left gluteal area was incised with a 10 blade scalpel purulent material was expressed this was cultured the wound was further opened there was a tract more superior on the left side this was completely open leaving a wound approximately 8 cm in length and 4 cm in width debridement of subcutaneous tissue as well as skin was done with a 10 blade scalpel. Wound was then irrigated with normal saline with Betadine solution bleeding was controlled with electrocautery and the wound was then packed with half-inch iodoform new gauze 4 x 4's and Medipore tape were applied as dressings. Patient was repositioned in the supine positioning awakened and extubated in the operating room taken to recovery in stable condition all sponge instrument needle counts listed as correct estimated blood loss 30 mL. CARRIE SRIVASTAVA MD February 13, 2020 10:03
[2020-02-13] MEDS ORDERED: INSULIN LISPRO 100 UNIT/ML 3ML VIAL for OP,RR ONLY. SQ PRN (10:30)
--- NOTE | 2020-02-13 12:14 | NUR ---
SS following for discharge planning. SS reviewed pt chart and discussed with pt RN. Pt is from home with spouse and is currently on room air. Pt had surgery today for abscess. Pt currently on IV Daptomycin. SS will continue to follow for discharge planning.
--- NOTE | 2020-02-13 12:18 | PDOC ---
Infectious Disease Note Vital Signs: Vital Signs Vital Signs Date Time Temp Pulse Resp B/P (MAP) Pulse Ox O2 Delivery O2 Flow Rate FiO2 02/13/20 11:03 97.8 94 18 85/46 (59) 96 Room Air 97.8 02/13/20 10:55 3 Medications: Inpatient Meds: Current Medications Medications (Trade) Dose Ordered Sig/Ty Start Time Stop Time Status Last Admin Dose Admin Bupivacaine HCl/ Epinephrine Bitart (Sensorcain-Epi 0.5%-1:873089 Mpf) 30 ml STK-MED ONCE 02/13/20 08:54 02/13/20 08:54 DC Daptomycin 520 mg/ Sodium Chloride 50 ml @ 100 mls/hr Q24H 02/13/20 14:00 Fentanyl Citrate (Fentanyl 2ml Vial) 50 mcg PRN Q5MIN PRN 02/13/20 09:15 02/14/20 09:14 Glycopyrrolate (Robinul) 1 mg STK-MED ONCE 02/13/20 08:36 02/13/20 08:36 DC Hydromorphone HCl (Dilaudid) 0.5 mg PRN Q10MIN PRN 02/13/20 09:15 02/14/20 09:14 Insulin Glargine (Lantus Syringe) 25 unit QHS 02/12/20 21:00 02/12/20 21:20 25 UNIT Insulin Human Lispro (HumaLOG VIAL for OP,RR ONLY) 0-10 units PRN Q1HR PRN 02/13/20 10:30 02/13/20 19:00 02/13/20 10:30 8 UNIT Insulin Human Lispro (HumaLOG) 8 units TIDAC 02/13/20 07:30 02/13/20 08:40 8 UNITS Insulin Human Regular (HumuLIN R VIAL) 8 unit 1X ONCE 02/12/20 15:45 02/12/20 15:46 DC 02/12/20 16:02 5 UNIT Iohexol (Omnipaque 300 Mg/ml) 60 ml 1X ONCE 02/12/20 13:15 02/12/20 13:16 DC 02/12/20 13:09 60 ML Lidocaine HCl (Xylocaine-Mpf 1% 2ml Vial) 2 ml PRN 1X PRN 02/13/20 09:15 02/14/20 09:14 Midazolam HCl (Versed) 2 mg STK-MED ONCE 02/13/20 08:36 02/13/20 08:37 DC Morphine Sulfate (Morphine Sulfate) 1 mg PRN Q10MIN PRN 02/13/20 09:15 02/14/20 09:14 Neostigmine [place] (Neostigmine Methylsulfate) 5 mg STK-MED ONCE 02/13/20 08:36 02/13/20 08:36 DC Ondansetron HCl (Zofran) 4 mg PRN Q6HRS PRN 02/13/20 09:15 02/14/20 09:14 Oxycodone/ Acetaminophen (Percocet 5/325) 1 tab PRN Q4HRS PRN 02/12/20 17:45 Phenylephrine HCl (PHENYLEPHRINE in 0.9% NACL PF) 1 mg STK-MED ONCE 02/13/20 09:27 02/13/20 09:28 DC Piperacillin Sod/ Tazobactam Sod 3.375 gm/Sodium Chloride 50 ml @ 100 mls/hr Q6HRS 02/12/20 18:00 02/13/20 00:07 100 MLS/HR Piperacillin Sod/ Tazobactam Sod 4.5 gm/Sodium Chloride 100 ml @ 200 mls/hr 1X ONCE 02/12/20 13:00 02/12/20 13:29 DC 02/12/20 13:54 200 MLS/HR Prochlorperazine Edisylate (Compazine) 5 mg PACU PRN PRN 02/13/20 09:15 02/14/20 09:14 Ringer's Solution 1,000 ml @ 30 mls/hr Q24H 02/13/20 09:01 02/13/20 21:00 02/13/20 09:01 30 MLS/HR Rocuronium [place] (Zemuron) 50 mg STK-MED ONCE 02/13/20 08:36 02/13/20 08:36 DC Sevoflurane (Ultane) 60 ml STK-MED ONCE 02/13/20 08:36 02/13/20 08:36 DC Sodium Chloride 1,000 ml @ 100 mls/hr Q10H 02/12/20 17:30 02/12/20 18:11 100 MLS/HR Succinylcholine Chloride (Anectine) 200 mg STK-MED ONCE 02/13/20 08:37 02/13/20 08:38 DC Vancomycin HCl 1.25 gm/Sodium Chloride 250 ml @ 166.667 mls/hr 1X ONCE 02/12/20 13:15 02/12/20 14:44 DC 02/12/20 14:33 166.667 MLS/HR Vancomycin HCl 2 gm/Sodium Chloride 500 ml @ 250 mls/hr 1X ONCE 02/12/20 13:00 02/12/20 14:59 UNV Labs: Lab Laboratory Tests Test 02/12/20 15:38 02/12/20 15:56 02/12/20 16:53 02/12/20 20:25 Lactic Acid Level 1.2 mmol/L (0.4-2.0) Glucose (Fingerstick) 330 mg/dL (70-99) 241 mg/dL (70-99) 275 mg/dL (70-99) Test 02/13/20 04:50 02/13/20 07:54 02/13/20 10:10 02/13/20 11:20 Potassium Level 3.7 mmol/L (3.5-5.1) Magnesium Level 1.8 mg/dL (1.8-2.4) Glucose (Fingerstick) 331 mg/dL (70-99) 275 mg/dL (70-99) 223 mg/dL (70-99) Objective: Assessment: Patient seen and examined Plan: Plan of Care ID consult dictated Thank you Impression Left gluteal abscess Lactic acidosis Renal insufficiency Recommendations We will not give any further IV vancomycin Dapto Zosyn Wound care [id number] GABY SANTANA MD February 13, 2020 12:18
--- NOTE | 2020-02-13 12:46 | CONS ---
DATE OF CONSULTATION: 02/13/2020 REFERRING PHYSICIAN: Dr. Edwards. REASON FOR CONSULTATION: Left gluteal abscess, antibiotic management. HISTORY OF PRESENT ILLNESS: A 64-year-old gentleman who presented to the ER with gluteal pain, which started couple of days ago. He denied any history of injury or insect bite. He was tachycardic with leukocytosis, bandemia, lactic acidosis, hyponatremia, SHA. CT abdomen and pelvic CT showed fat stranding and soft tissue thickening along the intergluteal cleft on the left with a vague area of hypoattenuation just deep to the skin may be poorly formed or developing abscess. This measures about 5 x 2 x 4 cm in size and extends towards the perineum. No definite perianal or perirectal abscess, sigmoid diverticulosis with a short segment of questionable mild wall thickening and subtle pericolonic inflammation, no acute diverticulitis. The patient received a dose of vancomycin, also was started on Zosyn. He underwent surgery for left gluteal abscess with I and D and drainage with debridement. ID consult has been requested for antibiotic management. The patient was hypotensive. Received fluid bolus once per nurse before I saw the patient. He states pain is under control. Denies any headache, sore throat, shortness of breath, nausea, vomiting, diarrhea, abdominal pain, symptoms except that he is not making enough urine. PAST MEDICAL HISTORY: Diabetes, hypertension, gastroparesis, renal cell carcinoma, status post right nephrectomy, history of CVA, peripheral neuropathy, cholecystectomy, rotator cuff done with ORIF, history of Strep intermedius bacteremia in 02/2019, left fifth metatarsal osteomyelitis or joint infection and abscess, status post I and D and partial ray amputation. SOCIAL HISTORY: Denies smoking, ETOH, or illicit drug use. ALLERGIES: DYE. CURRENT MEDICATION: IV vancomycin and Zosyn. REVIEW OF SYSTEMS: Negative except for above in HPI. PHYSICAL EXAMINATION: VITAL SIGNS: Temperature 97.8, pulse 94, respiratory rate 18, blood pressure 85/46, repeat was 90/60, oxygen saturation 96% on room air. GENERAL AXXO3 Male in nad, comfortable seen with RN HEENT: Normocephalic, atraumatic, anicteric. NECK: Supple, no JVD, no lymphadenopathy. LUNGS: Clear bilaterally. HEART: S1, S2 regular. ABDOMEN: Soft, nontender, nondistended, no rebound, no guarding. Left gluteal dressing in place, intact, dry, did not take it down. Surrounding area, no erythema, no induration noted. NEUROLOGIC: Alert and oriented x 3, grossly nonfocal. PSYCHIATRIC: Cooperative, appropriate mood and affect DERMATOLOGIC: Warm, dry. No generalized rash. LABORATORY DATA: WBC 23.5, hemoglobin 15.7, hematocrit 47.5, platelets 302, bands 14. Sodium 127, potassium 4.4, chloride 90, bicarbonate 17, creatinine 1.7. Lactate was 2.7, repeat is 1.2, glucose is 241, alkaline phosphatase 243, albumin 2.6. IMAGING: Abdominal and pelvic CT as above. Wound culture pending. Blood culture pending. IMPRESSION: 1. Left gluteal abscess, status post I and D, 02/13/2020. 2. Postop hypotension, status post IV fluid infusion. 3. Leukocytosis. 4. Lactic acidosis. 5. Acute kidney injury. 6. History of right nephrectomy for renal cell carcinoma. 7. Hyponatremia. 8. Diabetes mellitus. RECOMMENDATIONS: 1. Would not give any further vancomycin due to history of nephrectomy with acute kidney injury. 2. Start daptomycin. 3. Continue Zosyn, may need renal dosing. 4. Follow up cultures and lab. 5. Continue supportive care. 6. Continue wound care as directed. 7. Discussed with nursing staff. Thank you for allowing me to participate in this patient's care. If you have any questions, do not hesitate to contact me. GABY SANTANA MD DR: JOSE RAUL/fausto JOB#: [id number] / [id number] ROSALBA
--- NOTE | 2020-02-13 12:58 | PDOC2 ---
ALEXUS GARCIAS GRADING CLERK 02/13/20 1258: CARDIAC CONSULT DATE OF CONSULT Date of Consult DATE: 02/13/20 TIME: 12:47 REASON FOR CONSULT Reason for Consult: NSVT REFERRING PHYSICIAN Referring Physician: Dr. Edwards SOURCE Source: Chart review, Patient HISTORY OF PRESENT ILLNESS HISTORY OF PRESENT ILLNESS This is a 64 yo male who presented due to painful lesion on his buttock with drainage. Has been presented for the last 4 days. Was noted with left gluteal abscess with erythema and elevated white count and fever. Had arrhythmia overnight on tele, which prompted this consult. No reports of chest pain, palpitations, dizziness, diaphoresis, SOA, or nausea/vomiting. PAST MEDICAL HISTORY CENTRAL NERVOUS SYSTEM: Periperal neuropathy Renal/: Renal Ca. Endocrine: Diabetes PAST SURGICAL HISTORY Past Surgical History: Cholecystectomy, Other (right nephrectomy ) FAMILY HISTORY Family History: Other (no pertinent positives) SOCIAL HISTORY Smoke: No ALCOHOL: none Drugs: None Lives: with Family CURRENT MEDICATIONS CURRENT MEDICATIONS Current Medications Medications (Trade) Dose Ordered Sig/Ty Route PRN Reason Start Time Stop Time Status Last Admin Dose Admin Piperacillin Sod/ Tazobactam Sod 4.5 gm/Sodium Chloride 100 ml @ 200 mls/hr 1X ONCE IV 02/12/20 13:00 02/12/20 13:29 DC 02/12/20 13:54 Vancomycin HCl 1.25 gm/Sodium Chloride 250 ml @ 166.667 mls/hr 1X ONCE IV 02/12/20 13:15 02/12/20 14:44 DC 02/12/20 14:33 Iohexol (Omnipaque 300 Mg/ml) 60 ml 1X ONCE IV 02/12/20 13:15 02/12/20 13:16 DC 02/12/20 13:09 Sodium Chloride 1,000 ml @ 1,000 mls/hr 1X ONCE IV 02/12/20 14:00 02/12/20 14:59 DC 02/12/20 14:08 Sodium Chloride 500 ml @ 500 mls/hr 1X ONCE IV 02/12/20 14:00 02/12/20 14:59 DC 02/12/20 14:09 Morphine Sulfate (Morphine Sulfate) 4 mg PRN Q2HR PRN IV PAIN 02/12/20 15:15 02/13/20 15:14 02/13/20 01:36 Insulin Human Regular (HumuLIN R VIAL) 8 unit 1X ONCE IV 02/12/20 15:45 02/12/20 15:46 DC 02/12/20 16:02 Sodium Chloride 1,000 ml @ 100 mls/hr Q10H IV 02/12/20 17:30 02/13/20 03:30 Piperacillin Sod/ Tazobactam Sod 3.375 gm/Sodium Chloride 50 ml @ 100 mls/hr Q6HRS IV 02/12/20 18:00 02/13/20 12:18 Insulin Human Lispro (HumaLOG) 8 units TIDAC SQ 02/13/20 07:30 02/13/20 08:40 Insulin Glargine (Lantus Syringe) 25 unit QHS SQ 02/12/20 21:00 02/12/20 21:20 Ringer's Solution 1,000 ml @ 30 mls/hr Q24H IV 02/13/20 09:01 02/13/20 21:00 02/13/20 09:01 Insulin Human Lispro (HumaLOG VIAL for OP,RR ONLY) 0-10 units PRN Q1HR PRN SQ PER PROTOCOL 02/13/20 10:30 02/13/20 19:00 02/13/20 10:30 ALLERGIES ALLERGIES: Coded Allergies: yellow dye (Verified Allergy, Intermediate, Rash, 10/22/19) ROS Review of System 14 point ROS conducted with pertinent positives noted above in HPI PHYSICAL EXAM General: Alert, Oriented X3, Cooperative, No acute distress HEENT: Atraumatic, Mucous membr. moist/pink Lungs: Clear to auscultation, Normal air movement Heart: Regular rate Abdomen: Soft, No tenderness Extremities: No edema, Normal pulses Skin: No breakdown, No significant lesion Neuro: Normal speech, Sensation intact Psych/Mental Status: Mental status NL, Mood NL MUSCULOSKELETAL: Osteoarthritic changes both hands VITALS/I&O VITALS/I&O: Vital Signs Date Time Temp Pulse Resp B/P (MAP) Pulse Ox O2 Delivery O2 Flow Rate FiO2 02/13/20 11:03 97.8 94 18 85/46 (59) 96 Room Air 97.8 02/13/20 10:55 3 I & O 02/12/20 02/12/20 02/13/20 15:00 23:00 07:00 Intake Total 1600 ml 2250 ml 0 ml Balance 1600 ml 2250 ml 0 ml LABS Lab: Laboratory Tests Test 02/12/20 15:38 02/12/20 15:56 02/12/20 16:53 02/12/20 20:25 Lactic Acid Level 1.2 mmol/L (0.4-2.0) Glucose (Fingerstick) 330 mg/dL (70-99) H 241 mg/dL (70-99) H 275 mg/dL (70-99) H Test 02/13/20 04:50 02/13/20 07:54 02/13/20 10:10 02/13/20 11:20 Potassium Level 3.7 mmol/L (3.5-5.1) Magnesium Level 1.8 mg/dL (1.8-2.4) Glucose (Fingerstick) 331 mg/dL (70-99) H 275 mg/dL (70-99) H 223 mg/dL (70-99) H Laboratory Tests 02/13/20 04:50 ASSESSMENT/PLAN ASSESSMENT/PLAN 1. Left gluteal abscess; s/p I and D 2. Leukocytosis, lactic acidosis, fevers 3. Arrhythmia; NSVT vs aberrant AFIB 4. Diabetes, II 5. H/o renal CA s/p nephrectomy 6. SHA vs CKD; baseline unknown Recommendations TSH Lipids Mg level Echo to assess LV systolic function Monitor tele Supportive care STEVIE TOMLINSON MD 02/13/20 1628: CARDIAC CONSULT ASSESSMENT/PLAN ASSESSMENT/PLAN Patient seen and evaluated I agree with our nurse practitioners assessment and plan. Left gluteal abscess. Status post I&D this morning. Arrhythmias. Wide-complex tachycardia. NSVT versus aberrant A. fib. Check TSH and magnesium. Continue supportive care. Echo for LV function. Continue telemetry. Diabetes mellitus. As per the primary service. History of renal cancer status post nephrectomy. Thank you for allowing us to participate in the care of your patient. ALEXUS GARCIAS APRN February 13, 2020 12:58 STEVIE TOMLINSON MD February 13, 2020 16:28
[2020-02-13 13:23] LABS: CHOLESTEROL/HDL RATIO 6.4
[2020-02-13] MEDS: DAPTOmycin (GENERIC) IVPB 520 MG in IV NORMAL SALINE 50ML 50 ML IV SCH (15:25)
--- NOTE | 2020-02-13 15:35 | NUR ---
Pt observed on the floor in the bathroom. Vitals signs with in normal. Pt reports no injury. Nurse mobility architect manager notified. Dr. Carrillo notified and orders obtained to start Neuro checks Q3 hours. Will continue to monitor pt.
--- NOTE | 2020-02-13 16:02 | CARD ---
MR#: [id number] Date of Study: 02/13/2020 Ordering Physician: ALEXUS GARCIAS, Referring Physician: ALEXUS GARCIAS, Tech: Marzena Vee APPROVED REPORT EXAM: Two-dimensional and M-mode echocardiogram with Doppler and color Doppler. Other Information Quality : AverageHR: 83bpm INDICATION Arrhythmia 2D DIMENSIONS RVDd3.3 (2.9-3.5cm)Left Atrium(2D)3.7 (1.6-4.0cm) IVSd1.2 (0.7-1.1cm)Aortic Root(2D)3.2 (2.0-3.7cm) LVDd4.8 (3.9-5.9cm)LVOT Diameter1.9 (1.8-2.4cm) PWd1.3 (0.7-1.1cm)LVDs2.8 (2.5-4.0cm) FS (%) 40.8 %SV75.1 ml Aortic Valve AoV Peak Elvin.152.3cm/sAoV VTI28.5cm AO Peak GR.9.3mmHgLVOT VTI 21.80cm AO Mean GR.6mmHg Mitral Valve MV E Yctueijv53.8cm/sMV E Peak Gr.3mmHg MV DECEL [id number] A Odbzqraz24.1cm/s MV E Mean Gr.1mmHgE/A Ratio1.1 TDI Lateral E' P. V6.41cm/sMedial E' P. V5.86cm/s E/Lateral E'11.0E/Medial E'12.1 Tricuspid Valve TR P. Pxxferpf154fd/sRAP [id number] TR Peak Gr.34amJuBNTV37ljAl Pulmonary Vein S1 Uixmyiaa88.3cm/sS2 Lpqwfmuv67.66cm/s D2 Qgsccbda87.7cm/sPVa [id number] LEFT VENTRICLE The left ventricle is normal size. There is borderline to mild concentric left ventricular hypertroph y. The left ventricular systolic function is normal and the ejection fraction is within normal range. The Ejection Fraction is 60-65%. There is normal LV segmental wall motion. The left ventricular wick tolic function and filling is normal for age. RIGHT VENTRICLE The right ventricle is normal size. There is normal right ventricular wall thickness. The right ventr icular systolic function is normal. ATRIA The left atrium size is normal. The right atrium size is normal. The interatrial septum is intact wit h no evidence for an atrial septal defect or patent foramen ovale as noted on 2-D or Doppler imaging. AORTIC VALVE The aortic valve is normal in structure and function. Doppler and Color Flow revealed no significant aortic regurgitation. There is no significant aortic valvular stenosis. MITRAL VALVE The mitral valve is normal in structure and function. There is no evidence of mitral valve prolapse. There is no mitral valve stenosis. Doppler and Color-flow revealed trace mitral regurgitation. TRICUSPID VALVE The tricuspid valve is normal in structure and function. Doppler and Color Flow revealed trace tricus pid regurgitation with an estimated PAP of 26 mmHg. There is no tricuspid valve stenosis. PULMONIC VALVE The pulmonic valve is not well visualized. Doppler and Color Flow revealed trace pulmonic valvular re gurgitation. GREAT VESSELS The aortic root is normal in size. The IVC was not visualized. PERICARDIAL EFFUSION There is no evidence of significant pericardial effusion. Critical Notification Critical Value: No <Conclusion> The left ventricle is normal size. The left ventricular systolic function is normal and the ejection fraction is within normal range. The Ejection Fraction is 60-65%. There is borderline to mild concentric left ventricular hypertrophy. Doppler and Color Flow revealed no significant aortic regurgitation. There is no significant aortic valvular stenosis. Doppler and Color-flow revealed trace mitral regurgitation. Doppler and Color Flow revealed trace tricuspid regurgitation with an estimated PAP of 26 mmHg. Signed by : Pablo Pedro MD Electronically Approved : 02/13/2020 16:02:11
--- NOTE | 2020-02-13 16:42 | NUR ---
Wound Care Pt had surgery today, will assess tomorrow.
--- NOTE | 2020-02-13 19:07 | PDOC ---
PROGRESS NOTES Chief Complaint Chief Complaint Left gluteal abscess; s/p I and D Leukocytosis secondary to the above Lactic acidosis secondary to above mentioned infection History of diabetes type 2 insulin requiring Arrhythmia; NSVT vs aberrant AFIB H/o renal CA s/p nephrectomy Acute renal failure secondary to vasomotor etiology most likely S/P mechanical fall secondary to slipping Plan: Continue broad spectrum antibiotics Check neurological status every 4 hours while awake for the next 24 hours follow recommendations from store consultant History of Present Illness History of Present Illness Patient with no acute events overnight, he underwent i and d in the OR earlier, suffered a fall prior to my visit. He is neurologically intact, no concerns except for headache as a consequence of the fall. Patient did not loose consciousness. Patient responding appropriately to questions and he is not on anticoagulation. Reassurance provided, discussed with nursing staff. Vitals Vitals Vital Signs Date Time Temp Pulse Resp B/P (MAP) Pulse Ox O2 Delivery O2 Flow Rate FiO2 02/13/20 15:00 98.2 85 18 102/64 (77) 96 Room Air 98.2 02/13/20 10:55 3 Physical Exam General: Alert, Oriented X3, Cooperative, No acute distress Heart: Regular rate, Normal S1, Normal S2 Lungs: Clear Abdomen: Soft, No tenderness Extremities: No edema, Normal pulses Skin: No breakdown, No significant lesion Labs LABS Laboratory Tests Test 02/12/20 20:25 02/13/20 04:50 02/13/20 07:54 02/13/20 10:10 Glucose (Fingerstick) 275 mg/dL (70-99) 331 mg/dL (70-99) 275 mg/dL (70-99) Potassium Level 3.7 mmol/L (3.5-5.1) Magnesium Level 1.8 mg/dL (1.8-2.4) Triglycerides Level 104 mg/dL (0-150) Cholesterol Level 90 mg/dL (0-200) LDL Cholesterol, Calculated 55 mg/dL (0-100) VLDL Cholesterol, Calculated 21 mg/dL (0-40) Non-HDL Cholesterol Calculated 76 mg/dL (0-129) HDL Cholesterol 14 mg/dL (40-60) Cholesterol/HDL Ratio 6.4 Thyroid Stimulating Hormone (TSH) 1.664 uIU/mL (0.358-3.74) Test 02/13/20 11:20 02/13/20 16:44 Glucose (Fingerstick) 223 mg/dL (70-99) 330 mg/dL (70-99) Assessment and Plan Assessmemt and Plan Problems Medical Problems: (1) Gluteal abscess Status: Acute (2) Severe sepsis Status: Acute Comment Review of Relevant I have reviewed the following items antonio (where applicable) has been applied. Labs Laboratory Tests Test 02/12/20 12:11 02/12/20 15:38 02/12/20 15:56 02/12/20 16:53 White Blood Count 23.5 x10^3/uL (4.0-11.0) Red Blood Count 5.17 x10^6/uL (4.30-5.70) Hemoglobin 15.7 g/dL (13.0-17.5) Hematocrit 47.5 % (39.0-53.0) Mean Corpuscular Volume 92 fL (79-100) Mean Corpuscular Hemoglobin 30 pg (25-35) Mean Corpuscular Hemoglobin Concent 33 g/dL (31-37) Red Cell Distribution Width 13.7 % (11.5-14.5) Platelet Count 302 x10^3/uL (140-400) Neutrophils (%) (Auto) 85 % (31-73) Lymphocytes (%) (Auto) 5 % (24-48) Monocytes (%) (Auto) 9 % (0-9) Eosinophils (%) (Auto) 0 % (0-3) Basophils (%) (Auto) 0 % (0-3) Neutrophils # (Auto) 20.0 x10^3/uL (1.8-7.7) Lymphocytes # (Auto) 1.3 x10^3/uL (1.0-4.8) Monocytes # (Auto) 2.1 x10^3/uL (0.0-1.1) Eosinophils # (Auto) 0.1 x10^3/uL (0.0-0.7) Basophils # (Auto) 0.0 x10^3/uL (0.0-0.2) Segmented Neutrophils % 75 % (35-66) Band Neutrophils % 14 % (0-9) Lymphocytes % 4 % (24-48) Monocytes % 7 % (0-10) Dohle Bodies Few Platelet Estimate Adequate (ADEQUATE) Prothrombin Time 14.0 SEC (11.7-14.0) Prothromb Time International Ratio 1.1 (0.8-1.1) Activated Partial Thromboplast Time 30 SEC (24-38) Sodium Level 127 mmol/L (136-145) Potassium Level 4.4 mmol/L (3.5-5.1) Chloride Level 90 mmol/L (98-107) Carbon Dioxide Level 17 mmol/L (21-32) Anion Gap 20 (6-14) Blood Urea Nitrogen 21 mg/dL (8-26) Creatinine 1.7 mg/dL (0.7-1.3) Estimated GFR (Cockcroft-Gault) 41.0 BUN/Creatinine Ratio 12 (6-20) Glucose Level 453 mg/dL (70-99) Lactic Acid Level 2.7 mmol/L (0.4-2.0) 1.2 mmol/L (0.4-2.0) Calcium Level 9.5 mg/dL (8.5-10.1) Total Bilirubin 1.1 mg/dL (0.2-1.0) Aspartate Amino Transf (AST/SGOT) 33 U/L (15-37) Alanine Aminotransferase (ALT/SGPT) 24 U/L (16-63) Alkaline Phosphatase 243 U/L (46-116) Total Protein 7.9 g/dL (6.4-8.2) Albumin 2.6 g/dL (3.4-5.0) Albumin/Globulin Ratio 0.5 (1.0-1.7) Glucose (Fingerstick) 330 mg/dL (70-99) 241 mg/dL (70-99) Test 02/12/20 20:25 02/13/20 04:50 02/13/20 07:54 02/13/20 10:10 Glucose (Fingerstick) 275 mg/dL (70-99) 331 mg/dL (70-99) 275 mg/dL (70-99) Potassium Level 3.7 mmol/L (3.5-5.1) Magnesium Level 1.8 mg/dL (1.8-2.4) Triglycerides Level 104 mg/dL (0-150) Cholesterol Level 90 mg/dL (0-200) LDL Cholesterol, Calculated 55 mg/dL (0-100) VLDL Cholesterol, Calculated 21 mg/dL (0-40) Non-HDL Cholesterol Calculated 76 mg/dL (0-129) HDL Cholesterol 14 mg/dL (40-60) Cholesterol/HDL Ratio 6.4 Thyroid Stimulating Hormone (TSH) 1.664 uIU/mL (0.358-3.74) Test 02/13/20 11:20 02/13/20 16:44 Glucose (Fingerstick) 223 mg/dL (70-99) 330 mg/dL (70-99) Laboratory Tests Test 02/12/20 20:25 02/13/20 04:50 02/13/20 07:54 02/13/20 10:10 Glucose (Fingerstick) 275 mg/dL (70-99) 331 mg/dL (70-99) 275 mg/dL (70-99) Potassium Level 3.7 mmol/L (3.5-5.1) Magnesium Level 1.8 mg/dL (1.8-2.4) Triglycerides Level 104 mg/dL (0-150) Cholesterol Level 90 mg/dL (0-200) LDL Cholesterol, Calculated 55 mg/dL (0-100) VLDL Cholesterol, Calculated 21 mg/dL (0-40) Non-HDL Cholesterol Calculated 76 mg/dL (0-129) HDL Cholesterol 14 mg/dL (40-60) Cholesterol/HDL Ratio 6.4 Thyroid Stimulating Hormone (TSH) 1.664 uIU/mL (0.358-3.74) Test 02/13/20 11:20 02/13/20 16:44 Glucose (Fingerstick) 223 mg/dL (70-99) 330 mg/dL (70-99) Microbiology 02/12/20 Blood Culture - Preliminary, Resulted NO GROWTH AFTER 1 DAY Medications Current Medications Morphine Sulfate (Morphine Sulfate) 4 mg PRN Q15MIN PRN IV/SQ PAIN GREATER THAN 3/10 Last administered on 02/12/20at 12:31; Start 02/12/20 at 12:00; Stop 0 at 17:37; Status DC Sodium Chloride 1,000 ml @ 1,000 mls/hr Q1H IV Last administered on 02/12/20at 12:31; Start 02/12/20 at 11:58; Stop 02/12/20 at 12:57; Status DC Vancomycin HCl 2 gm/Sodium Chloride 500 ml @ 250 mls/hr 1X ONCE IV ; Start 02/12/20 at 13:00; Stop 02/12/20 at 14:59; Status UNV Piperacillin Sod/ Tazobactam Sod 4.5 gm/Sodium Chloride 100 ml @ 200 mls/hr 1X ONCE IV Last administered on 02/12/20at 13:54; Start 02/12/20 at 13:00; Stop 02/12/20 at 13:29; Status DC Vancomycin HCl 1.25 gm/Sodium Chloride 250 ml @ 166.667 mls/hr 1X ONCE IV Last administered on 02/12/20at 14:33; Start 02/12/20 at 13:15; Stop 02/12/20 at 14:44; Status DC Iohexol (Omnipaque 300 Mg/ml) 60 ml 1X ONCE IV Last administered on 02/12/20at 13:09; Start 02/12/20 at 13:15; Stop 02/12/20 at 13:16; Status DC Sodium Chloride 1,000 ml @ 1,000 mls/hr 1X ONCE IV Last administered on 02/12/20at 14:08; Start 02/12/20 at 14:00; Stop 02/12/20 at 14:59; Status DC Sodium Chloride 500 ml @ 500 mls/hr 1X ONCE IV Last administered on 02/12/20at 14:09; Start 02/12/20 at 14:00; Stop 02/12/20 at 14:59; Status DC Ondansetron HCl (Zofran) 4 mg PRN Q8HRS PRN IV NAUSEA/VOMITING; Start 02/12/20 at 15:15; Stop 02/13/20 at 15:14; Status DC Morphine Sulfate (Morphine Sulfate) 4 mg PRN Q2HR PRN IV PAIN Last administered on 02/13/20at 01:36; Start 02/12/20 at 15:15; Stop 02/13/20 at 15:14; Status DC Insulin Human Regular (HumuLIN R VIAL) 8 unit 1X ONCE IV Last administered on 02/12/20at 16:02; Start 02/12/20 at 15:45; Stop 02/12/20 at 15:46; Status DC Sodium Chloride 1,000 ml @ 100 mls/hr Q10H IV Last administered on 02/13/20at 15:24; Start 02/12/20 at 17:30 Piperacillin Sod/ Tazobactam Sod 3.375 gm/Sodium Chloride 50 ml @ 100 mls/hr Q6HRS IV Last administered on 02/13/20at 18:08; Start 02/12/20 at 18:00 Oxycodone/ Acetaminophen (Percocet 5/325) 1 tab PRN Q4HRS PRN PO PAIN; Start 02/12/20 at 17:45 Insulin Human Lispro (HumaLOG) 8 units TIDAC SQ Last administered on 02/13/20at 18:13; Start 02/13/20 at 07:30 Insulin Glargine (Lantus Syringe) 25 unit QHS SQ Last administered on 02/12/20at 21:20; Start 02/12/20 at 21:00 Glycopyrrolate (Robinul) 1 mg STK-MED ONCE .ROUTE ; Start 02/13/20 at 08:36; Stop 02/13/20 at 08:36; Status DC Sevoflurane (Ultane) 60 ml STK-MED ONCE IH ; Start 02/13/20 at 08:36; Stop 02/13/20 at 08:36; Status DC Rocuronium [place] (Zemuron) 50 mg STK-MED ONCE .ROUTE ; Start 02/13/20 at 08:36; Stop 02/13/20 at 08:36; Status DC Fentanyl Citrate (Fentanyl 2ml Vial) 100 mcg STK-MED ONCE .ROUTE ; Start 02/13/20 at 08:36; Stop 02/13/20 at 08:36; Status DC Neostigmine [place] (Neostigmine Methylsulfate) 5 mg STK-MED ONCE .ROUTE ; Start 02/13/20 at 08:36; Stop 02/13/20 at 08:36; Status DC Midazolam HCl (Versed) 2 mg STK-MED ONCE .ROUTE ; Start 02/13/20 at 08:36; Stop 02/13/20 at 08:37; Status DC Succinylcholine Chloride (Ane[place]ine) 200 mg STK-MED ONCE .ROUTE ; Start 02/13/20 at 08:37; Stop 02/13/20 at 08:38; Status DC Bupivacaine HCl/ Epinephrine Bitart (Sensorcain-Epi 0.5%-1:676808 Mpf) 30 ml STK-MED ONCE .ROUTE ; Start 02/13/20 at 08:54; Stop 02/13/20 at 08:54; Status DC Ondansetron HCl (Zofran) 4 mg PRN Q6HRS PRN IV NAUSEA/VOMITING; Start 02/13/20 at 09:15; Stop 02/14/20 at 09:14 Fentanyl Citrate (Fentanyl 2ml Vial) 25 mcg PRN Q5MIN PRN IV MILD PAIN 1-3; Start 02/13/20 at 09:15; Stop 02/14/20 at 09:14 Fentanyl Citrate (Fentanyl 2ml Vial) 50 mcg PRN Q5MIN PRN IV MODERATE TO SEVERE PAIN; Start 02/13/20 at 09:15; Stop 02/14/20 at 09:14 Morphine Sulfate (Morphine Sulfate) 1 mg PRN Q10MIN PRN IV SEVERE PAIN 7-10; Start 02/13/20 at 09:15; Stop 02/14/20 at 09:14 Ringer's Solution 1,000 ml @ 30 mls/hr Q24H IV Last administered on 02/13/20at 09:01; Start 02/13/20 at 09:01; Stop 02/13/20 at 21:00 Lidocaine HCl (Xylocaine-Mpf 1% 2ml Vial) 2 ml PRN 1X PRN ID PRIOR TO IV START; Start 02/13/20 at 09:15; Stop 02/14/20 at 09:14 Hydromorphone HCl (Dilaudid) 0.5 mg PRN Q10MIN PRN IV SEV PAIN, Second choice; Start 02/13/20 at 09:15; Stop 02/14/20 at 09:14 Prochlorperazine Edisylate (Compazine) 5 mg PACU PRN PRN IV NAUSEA, MRX1; Start 02/13/20 at 09:15; Stop 02/14/20 at 09:14 Phenylephrine HCl (PHENYLEPHRINE in 0.9% NACL PF) 1 mg STK-MED ONCE IV ; Start 02/13/20 at 09:27; Stop 02/13/20 at 09:28; Status DC Insulin Human Lispro (HumaLOG VIAL for OP,RR ONLY) 0-10 units PRN Q1HR PRN SQ PER PROTOCOL Last administered on 02/13/20at 10:30; Start 02/13/20 at 10:30; Stop 02/13/20 at 19:00; Status DC Daptomycin 520 mg/ Sodium Chloride 50 ml @ 100 mls/hr Q24H IV Last administered on 02/13/20at 15:25; Start 02/13/20 at 14:00 Active Scripts Active Percocet 5-325 Mg Tablet (Oxycodone/Acetaminophen) 1 Each Tablet 1 Tab PO PRN Q4HRS PRN 7 Days Reported Novolog (Insulin Aspart) 100 Unit/1 Ml Cartridge 8 Unit SQ TIDAC Lantus Solostar (Insulin Glargine,Hum.rec.anlog) 100 Unit/1 Ml Insuln.pen 25 Unit SQ QHS Vitals/I & O Vital Sign - Last 24 Hours 02/12/20 02/13/20 02/13/20 02/13/20 23:14 03:00 07:00 08:00 Temp 98.6 98.6 97.8 98.6 98.6 97.8 Pulse 125 98 102 Resp 18 16 20 B/P (MAP) 98/55 (69) 97/50 (66) 101/52 (68) Pulse Ox 97 95 97 O2 Delivery Room Air Room Air Room Air Nasal Cannula O2 Flow Rate 2.0 02/13/20 02/13/20 02/13/20 02/13/20 09:11 10:08 10:08 10:25 Temp 97.8 97.8 97.8 97.8 97.8 97.8 Pulse 102 99 98 Resp 15 18 18 B/P (MAP) 108/72 102/57 127/76 Pulse Ox 97 99 98 O2 Delivery Room Air Simple Mask Mask Simple Mask O2 Flow Rate 10 10 5 02/13/20 5 5/02/13/20 10:40 10:55 11:03 11:18 Temp 97.8 97.8 97.8 97.8 97.8 97.8 Pulse 98 99 94 89 Resp 18 17 18 B/P (MAP) 107/59 114/75 85/46 (59) 85/48 (60) Pulse Ox 98 98 96 95 O2 Delivery Nasal Cannula Nasal Cannula Room Air O2 Flow Rate 3 3 02/12/20 5//20 5//20 5/20 11:33 11:48 12:03 12:33 Pulse 86 83 85 88 B/P (MAP) 90/50 (63) 90/51 (64) 100/58 (72) 93/49 (64) Pulse Ox 95 100 99 98 02/13/20 02/13/20 02/13/20 13:03 14:03 15:00 Temp 98.2 98.2 Pulse 86 82 85 Resp 18 B/P (MAP) 99/53 (68) 92/48 (63) 102/64 (77) Pulse Ox 97 97 96 O2 Delivery Room Air Intake and Output 02/12/20 02/12/20 02/13/20 15:00 23:00 07:00 Intake Total 1600 ml 2250 ml 0 ml Balance 1600 ml 2250 ml 0 ml JD CHURCH MD February 13, 2020 19:07
[2020-02-13] MEDS: INSULIN GLARGINE SYRINGE. SQ SCH (21:23)
[2020-02-13] MEDS ORDERED: INSULIN LISPRO 300 UNITS/3 ML VIAL. SQ ONE (21:30)
[2020-02-14] MEDS: PIPERACILLIN/TAZOBACTAM 3.375 GM in IV NORMAL SALINE 50ML 50 ML IV SCH ×4 (00:05→18:30)
[2020-02-14 03:19] VITALS: BP 87/47
[2020-02-14 05:29] LABS: BASO % 0 % (0-3); EOS % 0 % (0-3); HEMATOCRIT 39.9 % (39.0-53.0); LYMPH # 0.6 x10^3/uL (1.0-4.8); LYMPH % 3 % (24-48); MEAN CORPUSCULAR HEMOGLOBIN 30 pg (25-35); MEAN CORPUSCULAR HGB CONC 33 g/dL (31-37); MEAN CORPUSCULAR VOLUME 92 fL (79-100); MONO # 0.9 x10^3/uL (0.0-1.1); MONO % 5 % (0-9); NEUT # 16.8 x10^3/uL (1.8-7.7); NEUT % 92 % (31-73); PLATELET COUNT 279 x10^3/uL (140-400); RED BLOOD COUNT 4.36 x10^6/uL (4.30-5.70); RED CELL DISTRIBUTION WIDTH 14.1 % (11.5-14.5); WHITE BLOOD COUNT 18.3 x10^3/uL (4.0-11.0)
[2020-02-14 05:56] LABS: ALBUMIN 1.7 g/dL (3.4-5.0); ALBUMIN/GLOBULIN RATIO 0.4 (1.0-1.7); CALCIUM 8.3 mg/dL (8.5-10.1); CREATININE 1.6 mg/dL (0.7-1.3); POTASSIUM 3.5 mmol/L (3.5-5.1); TOTAL BILIRUBIN 0.5 mg/dL (0.2-1.0); TOTAL PROTEIN 5.8 g/dL (6.4-8.2)
[2020-02-14 07:40] VITALS: BP 113/64
--- NOTE | 2020-02-14 08:16 | PDOC ---
SURGICAL PROGRESS NOTE Subjective Patient feeling much better this morning minimal pain Vital Signs Vital Signs Date Time Temp Pulse Resp B/P (MAP) Pulse Ox O2 Delivery O2 Flow Rate FiO2 02/14/20 07:40 97.6 69 18 113/64 (80) 99 Room Air 97.6 02/13/20 10:55 3 I&O Intake and Output 02/14/20 07:00 Intake Total 1390 ml Output Total 1031 ml Balance 359 ml Intake Oral 690 ml IV Total 700 ml Output Urine Total 1001 ml Estimated Blood Loss 30 ml # Voids 1 # Bowel Movements 1 PATIENT HAS A JOE: No General: Alert, Oriented X3, Cooperative, mild distress Skin: Other (Wounds dressed) Labs Laboratory Tests Test 02/12/20 12:11 02/12/20 15:38 02/12/20 15:56 02/12/20 16:53 White Blood Count 23.5 x10^3/uL (4.0-11.0) Red Blood Count 5.17 x10^6/uL (4.30-5.70) Hemoglobin 15.7 g/dL (13.0-17.5) Hematocrit 47.5 % (39.0-53.0) Mean Corpuscular Volume 92 fL (79-100) Mean Corpuscular Hemoglobin 30 pg (25-35) Mean Corpuscular Hemoglobin Concent 33 g/dL (31-37) Red Cell Distribution Width 13.7 % (11.5-14.5) Platelet Count 302 x10^3/uL (140-400) Neutrophils (%) (Auto) 85 % (31-73) Lymphocytes (%) (Auto) 5 % (24-48) Monocytes (%) (Auto) 9 % (0-9) Eosinophils (%) (Auto) 0 % (0-3) Basophils (%) (Auto) 0 % (0-3) Neutrophils # (Auto) 20.0 x10^3/uL (1.8-7.7) Lymphocytes # (Auto) 1.3 x10^3/uL (1.0-4.8) Monocytes # (Auto) 2.1 x10^3/uL (0.0-1.1) Eosinophils # (Auto) 0.1 x10^3/uL (0.0-0.7) Basophils # (Auto) 0.0 x10^3/uL (0.0-0.2) Segmented Neutrophils % 75 % (35-66) Band Neutrophils % 14 % (0-9) Lymphocytes % 4 % (24-48) Monocytes % 7 % (0-10) Dohle Bodies Few Platelet Estimate Adequate (ADEQUATE) Prothrombin Time 14.0 SEC (11.7-14.0) Prothromb Time International Ratio 1.1 (0.8-1.1) Activated Partial Thromboplast Time 30 SEC (24-38) Sodium Level 127 mmol/L (136-145) Potassium Level 4.4 mmol/L (3.5-5.1) Chloride Level 90 mmol/L (98-107) Carbon Dioxide Level 17 mmol/L (21-32) Anion Gap 20 (6-14) Blood Urea Nitrogen 21 mg/dL (8-26) Creatinine 1.7 mg/dL (0.7-1.3) Estimated GFR (Cockcroft-Gault) 41.0 BUN/Creatinine Ratio 12 (6-20) Glucose Level 453 mg/dL (70-99) Lactic Acid Level 2.7 mmol/L (0.4-2.0) 1.2 mmol/L (0.4-2.0) Calcium Level 9.5 mg/dL (8.5-10.1) Total Bilirubin 1.1 mg/dL (0.2-1.0) Aspartate Amino Transf (AST/SGOT) 33 U/L (15-37) Alanine Aminotransferase (ALT/SGPT) 24 U/L (16-63) Alkaline Phosphatase 243 U/L (46-116) Total Protein 7.9 g/dL (6.4-8.2) Albumin 2.6 g/dL (3.4-5.0) Albumin/Globulin Ratio 0.5 (1.0-1.7) Glucose (Fingerstick) 330 mg/dL (70-99) 241 mg/dL (70-99) Test 02/12/20 20:25 02/13/20 04:50 02/13/20 07:54 02/13/20 10:10 Glucose (Fingerstick) 275 mg/dL (70-99) 331 mg/dL (70-99) 275 mg/dL (70-99) Potassium Level 3.7 mmol/L (3.5-5.1) Magnesium Level 1.8 mg/dL (1.8-2.4) Triglycerides Level 104 mg/dL (0-150) Cholesterol Level 90 mg/dL (0-200) LDL Cholesterol, Calculated 55 mg/dL (0-100) VLDL Cholesterol, Calculated 21 mg/dL (0-40) Non-HDL Cholesterol Calculated 76 mg/dL (0-129) HDL Cholesterol 14 mg/dL (40-60) Cholesterol/HDL Ratio 6.4 Thyroid Stimulating Hormone (TSH) 1.664 uIU/mL (0.358-3.74) Test 02/13/20 11:20 02/13/20 16:44 02/13/20 20:29 02/14/20 05:05 Glucose (Fingerstick) 223 mg/dL (70-99) 330 mg/dL (70-99) 360 mg/dL (70-99) White Blood Count 18.3 x10^3/uL (4.0-11.0) Red Blood Count 4.36 x10^6/uL (4.30-5.70) Hemoglobin 13.0 g/dL (13.0-17.5) Hematocrit 39.9 % (39.0-53.0) Mean Corpuscular Volume 92 fL (79-100) Mean Corpuscular Hemoglobin 30 pg (25-35) Mean Corpuscular Hemoglobin Concent 33 g/dL (31-37) Red Cell Distribution Width 14.1 % (11.5-14.5) Platelet Count 279 x10^3/uL (140-400) Neutrophils (%) (Auto) 92 % (31-73) Lymphocytes (%) (Auto) 3 % (24-48) Monocytes (%) (Auto) 5 % (0-9) Eosinophils (%) (Auto) 0 % (0-3) Basophils (%) (Auto) 0 % (0-3) Neutrophils # (Auto) 16.8 x10^3/uL (1.8-7.7) Lymphocytes # (Auto) 0.6 x10^3/uL (1.0-4.8) Monocytes # (Auto) 0.9 x10^3/uL (0.0-1.1) Eosinophils # (Auto) 0.0 x10^3/uL (0.0-0.7) Basophils # (Auto) 0.0 x10^3/uL (0.0-0.2) Sodium Level 135 mmol/L (136-145) Potassium Level 3.5 mmol/L (3.5-5.1) Chloride Level 102 mmol/L (98-107) Carbon Dioxide Level 20 mmol/L (21-32) Anion Gap 13 (6-14) Blood Urea Nitrogen 23 mg/dL (8-26) Creatinine 1.6 mg/dL (0.7-1.3) Estimated GFR (Cockcroft-Gault) 44.0 BUN/Creatinine Ratio 14 (6-20) Glucose Level 434 mg/dL (70-99) Calcium Level 8.3 mg/dL (8.5-10.1) Total Bilirubin 0.5 mg/dL (0.2-1.0) Aspartate Amino Transf (AST/SGOT) 17 U/L (15-37) Alanine Aminotransferase (ALT/SGPT) 23 U/L (16-63) Alkaline Phosphatase 199 U/L (46-116) Total Protein 5.8 g/dL (6.4-8.2) Albumin 1.7 g/dL (3.4-5.0) Albumin/Globulin Ratio 0.4 (1.0-1.7) Test 02/14/20 07:26 Glucose (Fingerstick) 411 mg/dL (70-99) Laboratory Tests Test 02/13/20 10:10 02/13/20 11:20 02/13/20 16:44 02/13/20 20:29 Glucose (Fingerstick) 275 mg/dL (70-99) 223 mg/dL (70-99) 330 mg/dL (70-99) 360 mg/dL (70-99) Test 02/14/20 05:05 02/14/20 07:26 White Blood Count 18.3 x10^3/uL (4.0-11.0) Red Blood Count 4.36 x10^6/uL (4.30-5.70) Hemoglobin 13.0 g/dL (13.0-17.5) Hematocrit 39.9 % (39.0-53.0) Mean Corpuscular Volume 92 fL (79-100) Mean Corpuscular Hemoglobin 30 pg (25-35) Mean Corpuscular Hemoglobin Concent 33 g/dL (31-37) Red Cell Distribution Width 14.1 % (11.5-14.5) Platelet Count 279 x10^3/uL (140-400) Neutrophils (%) (Auto) 92 % (31-73) Lymphocytes (%) (Auto) 3 % (24-48) Monocytes (%) (Auto) 5 % (0-9) Eosinophils (%) (Auto) 0 % (0-3) Basophils (%) (Auto) 0 % (0-3) Neutrophils # (Auto) 16.8 x10^3/uL (1.8-7.7) Lymphocytes # (Auto) 0.6 x10^3/uL (1.0-4.8) Monocytes # (Auto) 0.9 x10^3/uL (0.0-1.1) Eosinophils # (Auto) 0.0 x10^3/uL (0.0-0.7) Basophils # (Auto) 0.0 x10^3/uL (0.0-0.2) Sodium Level 135 mmol/L (136-145) Potassium Level 3.5 mmol/L (3.5-5.1) Chloride Level 102 mmol/L (98-107) Carbon Dioxide Level 20 mmol/L (21-32) Anion Gap 13 (6-14) Blood Urea Nitrogen 23 mg/dL (8-26) Creatinine 1.6 mg/dL (0.7-1.3) Estimated GFR (Cockcroft-Gault) 44.0 BUN/Creatinine Ratio 14 (6-20) Glucose Level 434 mg/dL (70-99) Calcium Level 8.3 mg/dL (8.5-10.1) Total Bilirubin 0.5 mg/dL (0.2-1.0) Aspartate Amino Transf (AST/SGOT) 17 U/L (15-37) Alanine Aminotransferase (ALT/SGPT) 23 U/L (16-63) Alkaline Phosphatase 199 U/L (46-116) Total Protein 5.8 g/dL (6.4-8.2) Albumin 1.7 g/dL (3.4-5.0) Albumin/Globulin Ratio 0.4 (1.0-1.7) Glucose (Fingerstick) 411 mg/dL (70-99) Problem List Problems Medical Problems: (1) Gluteal abscess Status: Acute (2) Severe sepsis Status: Acute Assessment/Plan Status post incision and drainage and debridement of gluteal abscess Improved overall clinically lower white count no fevers Consult wound care for continued wound dressings possible wound VAC CARRIE SRIVASTAVA MD February 14, 2020 08:16
[2020-02-14] MEDS ORDERED: INSULIN GLARGINE SYRINGE. SQ SCH (09:00)
[2020-02-14] MEDS: INSULIN GLARGINE SYRINGE. SQ SCH ×2 (09:00→20:15)
--- NOTE | 2020-02-14 09:15 | NUR ---
AM insulin: Spoke with Dr. Carrillo re: pt's BG of 411. He ordered 15 units Lantus BID and continue Humalog as ordered. Gave pt 15 units of Lantus and 8 units of Humalog at 0850. Scanned bedside, cosigned by Stephanie John RN - it appears administration in system did not save although medications were administered.
[2020-02-14] MEDS: IV NORMAL SALINE 1000ML BAG 1,000 ML IV SCH ×2 (11:25→20:58)
--- NOTE | 2020-02-14 11:26 | PDOC ---
ALEXUS GARCIAS [employer]ER[employer] AGENT 02/14/20 1126: CARDIO Progress Notes Date and Time Date of Service 02/14/20 Time of Evaluation 1020 Subjective Subjective: No Chest Pain, No shortness of breath, No Palpitations Vitals Vitals Vital Signs Date Time Temp Pulse Resp B/P (MAP) Pulse Ox O2 Delivery O2 Flow Rate FiO2 02/14/20 07:40 97.6 69 18 113/64 (80) 99 Room Air 97.6 02/13/20 10:55 3 Weight Weight [ ] Input and Output Intake and Output Intake and Output 02/14/20 07:00 Intake Total 1390 ml Output Total 1031 ml Balance 359 ml Intake Oral 690 ml IV Total 700 ml Output Urine Total 1001 ml Estimated Blood Loss 30 ml # Voids 1 # Bowel Movements 1 Laboratory Labs Laboratory Tests Test 02/13/20 16:44 02/13/20 20:29 02/14/20 05:05 02/14/20 07:26 Glucose (Fingerstick) 330 mg/dL (70-99) 360 mg/dL (70-99) 411 mg/dL (70-99) White Blood Count 18.3 x10^3/uL (4.0-11.0) Red Blood Count 4.36 x10^6/uL (4.30-5.70) Hemoglobin 13.0 g/dL (13.0-17.5) Hematocrit 39.9 % (39.0-53.0) Mean Corpuscular Volume 92 fL (79-100) Mean Corpuscular Hemoglobin 30 pg (25-35) Mean Corpuscular Hemoglobin Concent 33 g/dL (31-37) Red Cell Distribution Width 14.1 % (11.5-14.5) Platelet Count 279 x10^3/uL (140-400) Neutrophils (%) (Auto) 92 % (31-73) Lymphocytes (%) (Auto) 3 % (24-48) Monocytes (%) (Auto) 5 % (0-9) Eosinophils (%) (Auto) 0 % (0-3) Basophils (%) (Auto) 0 % (0-3) Neutrophils # (Auto) 16.8 x10^3/uL (1.8-7.7) Lymphocytes # (Auto) 0.6 x10^3/uL (1.0-4.8) Monocytes # (Auto) 0.9 x10^3/uL (0.0-1.1) Eosinophils # (Auto) 0.0 x10^3/uL (0.0-0.7) Basophils # (Auto) 0.0 x10^3/uL (0.0-0.2) Sodium Level 135 mmol/L (136-145) Potassium Level 3.5 mmol/L (3.5-5.1) Chloride Level 102 mmol/L (98-107) Carbon Dioxide Level 20 mmol/L (21-32) Anion Gap 13 (6-14) Blood Urea Nitrogen 23 mg/dL (8-26) Creatinine 1.6 mg/dL (0.7-1.3) Estimated GFR (Cockcroft-Gault) 44.0 BUN/Creatinine Ratio 14 (6-20) Glucose Level 434 mg/dL (70-99) Calcium Level 8.3 mg/dL (8.5-10.1) Total Bilirubin 0.5 mg/dL (0.2-1.0) Aspartate Amino Transf (AST/SGOT) 17 U/L (15-37) Alanine Aminotransferase (ALT/SGPT) 23 U/L (16-63) Alkaline Phosphatase 199 U/L (46-116) Total Protein 5.8 g/dL (6.4-8.2) Albumin 1.7 g/dL (3.4-5.0) Albumin/Globulin Ratio 0.4 (1.0-1.7) Test 02/14/20 10:59 Glucose (Fingerstick) 400 mg/dL (70-99) Microbiology Micro Microbiology 02/13/20 Gram Stain - Final, Resulted 02/13/20 Aerobic and Anaerobic Culture - Preliminary, Resulted 02/12/20 Blood Culture - Preliminary, Resulted NO GROWTH AFTER 1 DAY Physical Exam HEENT: Neck Supple W Full Motion Chest: Symmetric LUNGS: Clear to Auscultation Heart: RRR Abdomen: Soft N/T Extremities: No Edema Neurology: alert, oriented, follow commands Assessment Assessment 1. Left gluteal abscess; s/p I and D 2. Leukocytosis, lactic acidosis, fevers 3. Arrhythmia; NSVT vs aberrant AFIB. Mg, TSH WNL. Echo with preserved LV systolic function. LDL 55. No further workup warranted at this time. Please call with questions. 4. Diabetes, II 5. H/o renal CA s/p nephrectomy 6. 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 Feeling significantly better. Arrhythmia; NSVT vs aberrant AFIB. Mg, TSH WNL. Echo with preserved LV systolic function. LDL 55. Rhythm stable since initial event. Diabetes, II H/o renal CA s/p nephrectomy ALEXUS GARCIAS APRN February 14, 2020 11:26 STEVIE TOMLINSON MD February 14, 2020 15:56
[2020-02-14] MEDS ORDERED: POTASSIUM CHLORIDE 20 MEQ TABLET.ER. PO ONE (11:30)
[2020-02-14 11:31] VITALS: BP 99/52
--- NOTE | 2020-02-14 12:30 | PDOC ---
Infectious Disease Note Subjective: Subjective Patient feels better Postop pain is under control Denies fever, nausea, vomiting, shortness of breath, diarrhea, abdominal pain, rash Otherwise as above Vital Signs: Vital Signs Vital Signs Date Time Temp Pulse Resp B/P (MAP) Pulse Ox O2 Delivery O2 Flow Rate FiO2 02/14/20 11:31 97.4 65 18 99/52 (68) 98 Room Air 97.4 02/13/20 10:55 3 Physical Exam: PHYSICAL EXAM GEN AXoX3 male in nad HEENT: Normocephalic, atraumatic, anicteric. NECK: Supple, no JVD, no lymphadenopathy. LUNGS: Clear bilaterally. HEART: S1, S2 regular. ABDOMEN: Soft, nontender, nondistended, no rebound, no guarding. Left gluteal dressing in place, intact, dry, did not take it down. Surrounding area, no erythema, no induration noted. NEUROLOGIC: Alert and oriented x 3, grossly nonfocal. PSYCHIATRIC: Cooperative, appropriate mood and affect DERMATOLOGIC: Warm, dry. No generalized rash. Medications: Inpatient Meds: Current Medications Medications (Trade) Dose Ordered Sig/Ty Start Time Stop Time Status Last Admin Dose Admin Bupivacaine HCl/ Epinephrine Bitart (Sensorcain-Epi 0.5%-1:478271 Mpf) 30 ml STK-MED ONCE 02/13/20 08:54 02/13/20 08:54 DC Daptomycin 520 mg/ Sodium Chloride 50 ml @ 100 mls/hr Q24H 02/13/20 14:00 02/13/20 15:25 100 MLS/HR Fentanyl Citrate (Fentanyl 2ml Vial) 50 mcg PRN Q5MIN PRN 02/13/20 09:15 02/14/20 09:14 DC Glycopyrrolate (Robinul) 1 mg STK-MED ONCE 02/13/20 08:36 02/13/20 08:36 DC Hydromorphone HCl (Dilaudid) 0.5 mg PRN Q10MIN PRN 02/13/20 09:15 02/14/20 09:14 DC Insulin Glargine (Lantus Syringe) 20 unit BID 02/14/20 09:00 Insulin Human Lispro (HumaLOG VIAL for OP,RR ONLY) 0-10 units PRN Q1HR PRN 02/13/20 10:30 02/13/20 19:00 DC 02/13/20 10:30 8 UNIT Insulin Human Lispro (HumaLOG) 10 units TIDAC 02/14/20 11:30 Insulin Human Regular (HumuLIN R VIAL) 8 unit 1X ONCE 02/12/20 15:45 02/12/20 15:46 DC 02/12/20 16:02 5 UNIT Iohexol (Omnipaque 300 Mg/ml) 60 ml 1X ONCE 02/12/20 13:15 02/12/20 13:16 DC 02/12/20 13:09 60 ML Lidocaine HCl (Xylocaine-Mpf 1% 2ml Vial) 2 ml PRN 1X PRN 02/13/20 09:15 02/14/20 09:14 DC Midazolam HCl (Versed) 2 mg STK-MED ONCE 02/13/20 08:36 02/13/20 08:37 DC Morphine Sulfate (Morphine Sulfate) 1 mg PRN Q10MIN PRN 02/13/20 09:15 02/14/20 09:14 DC Neostigmine Kuna (Neostigmine Methylsulfate) 5 mg STK-MED ONCE 02/13/20 08:36 02/13/20 08:36 DC Ondansetron HCl (Zofran) 4 mg PRN Q6HRS PRN 02/13/20 09:15 02/14/20 09:14 DC Oxycodone/ Acetaminophen (Percocet 5/325) 1 tab PRN Q4HRS PRN 02/12/20 17:45 Phenylephrine HCl (PHENYLEPHRINE in 0.9% NACL PF) 1 mg STK-MED ONCE 02/13/20 09:27 02/13/20 09:28 DC Piperacillin Sod/ Tazobactam Sod 3.375 gm/Sodium Chloride 50 ml @ 100 mls/hr Q6HRS 02/12/20 18:00 02/14/20 05:47 100 MLS/HR Piperacillin Sod/ Tazobactam Sod 4.5 gm/Sodium Chloride 100 ml @ 200 mls/hr 1X ONCE 02/12/20 13:00 02/12/20 13:29 DC 02/12/20 13:54 200 MLS/HR Potassium Chloride (Klor-Con) 20 meq 1X ONCE 02/14/20 11:30 02/14/20 11:37 DC Prochlorperazine Edisylate (Compazine) 5 mg PACU PRN PRN 02/13/20 09:15 02/14/20 09:14 DC Ringer's Solution 1,000 ml @ 30 mls/hr Q24H 02/13/20 09:01 02/13/20 21:00 DC 02/13/20 09:01 30 MLS/HR Rocuronium Kuna (Zemuron) 50 mg STK-MED ONCE 02/13/20 08:36 02/13/20 08:36 DC Sevoflurane (Ultane) 60 ml STK-MED ONCE 02/13/20 08:36 02/13/20 08:36 DC Sodium Chloride 1,000 ml @ 100 mls/hr Q10H 02/12/20 17:30 02/14/20 11:25 100 MLS/HR Succinylcholine Chloride (Anectine) 200 mg STK-MED ONCE 02/13/20 08:37 02/13/20 08:38 DC Vancomycin HCl 1.25 gm/Sodium Chloride 250 ml @ 166.667 mls/hr 1X ONCE 02/12/20 13:15 02/12/20 14:44 DC 02/12/20 14:33 166.667 MLS/HR Vancomycin HCl 2 gm/Sodium Chloride 500 ml @ 250 mls/hr 1X ONCE 02/12/20 13:00 02/12/20 14:59 UNV Labs: Lab Laboratory Tests Test 02/13/20 16:44 02/13/20 20:29 02/14/20 05:00 02/14/20 05:05 Glucose (Fingerstick) 330 mg/dL (70-99) 360 mg/dL (70-99) Magnesium Level 2.0 mg/dL (1.8-2.4) White Blood Count 18.3 x10^3/uL (4.0-11.0) Red Blood Count 4.36 x10^6/uL (4.30-5.70) Hemoglobin 13.0 g/dL (13.0-17.5) Hematocrit 39.9 % (39.0-53.0) Mean Corpuscular Volume 92 fL (79-100) Mean Corpuscular Hemoglobin 30 pg (25-35) Mean Corpuscular Hemoglobin Concent 33 g/dL (31-37) Red Cell Distribution Width 14.1 % (11.5-14.5) Platelet Count 279 x10^3/uL (140-400) Neutrophils (%) (Auto) 92 % (31-73) Lymphocytes (%) (Auto) 3 % (24-48) Monocytes (%) (Auto) 5 % (0-9) Eosinophils (%) (Auto) 0 % (0-3) Basophils (%) (Auto) 0 % (0-3) Neutrophils # (Auto) 16.8 x10^3/uL (1.8-7.7) Lymphocytes # (Auto) 0.6 x10^3/uL (1.0-4.8) Monocytes # (Auto) 0.9 x10^3/uL (0.0-1.1) Eosinophils # (Auto) 0.0 x10^3/uL (0.0-0.7) Basophils # (Auto) 0.0 x10^3/uL (0.0-0.2) Sodium Level 135 mmol/L (136-145) Potassium Level 3.5 mmol/L (3.5-5.1) Chloride Level 102 mmol/L (98-107) Carbon Dioxide Level 20 mmol/L (21-32) Anion Gap 13 (6-14) Blood Urea Nitrogen 23 mg/dL (8-26) Creatinine 1.6 mg/dL (0.7-1.3) Estimated GFR (Cockcroft-Gault) 44.0 BUN/Creatinine Ratio 14 (6-20) Glucose Level 434 mg/dL (70-99) Calcium Level 8.3 mg/dL (8.5-10.1) Total Bilirubin 0.5 mg/dL (0.2-1.0) Aspartate Amino Transf (AST/SGOT) 17 U/L (15-37) Alanine Aminotransferase (ALT/SGPT) 23 U/L (16-63) Alkaline Phosphatase 199 U/L (46-116) Total Protein 5.8 g/dL (6.4-8.2) Albumin 1.7 g/dL (3.4-5.0) Albumin/Globulin Ratio 0.4 (1.0-1.7) Test 02/14/20 07:26 02/14/20 10:59 Glucose (Fingerstick) 411 mg/dL (70-99) 400 mg/dL (70-99) Micro RUN DATE: 02/14/20 [facility] LAB *LIVE* PAGE 1 RUN TIME: 1043 Specimen Inquiry PATIENT: MARIA LUISA MANLEY ACCT: [id number] LOC: [address] [place] [address] U: [id number] AGE/SX: 64/M ROOM: [facility] RE02/12/[address]: PAPITO HERNANDEZ III, DO : 1955 BED: 1 DIS: STATUS: ADM IN TLOC: SPEC #: [id number] EULALIA: 02/13/20 STATUS: RES REQ #: [id number] RECD: 02/13/20-[address]: PAPITO HERNANDEZ III, DO SOURCE: DRAINAGE ENTR: 02/13/20-[address]: BRIANA SANTANA MD [facility]: KB SYED MD, KATHLEEN R MD ORDERED: ANAER/AEROB/GS COMMENTS: LEFT GLUTEAL ABSCESS Procedure Result GRAM STAIN Final Final GRAM POSITIVE COCCI:FEW SQUAMOUS EPI CELL:NONE SEEN PMN (WBCs):RARE Unless otherwise specified, Testing Performed by: [address] [id number] For Inquires, the Physician may contact the Microbiology department at [phone] ANAEROBIC-AEROBIC CULTURE Preliminary Preliminary MODERATE GRAM POSITIVE COCCI on 02/14/20 at 1040 FINAL ID= [STAPHYLOCOCCUS AUREUS] STAPHYLOCOCCUS AUREUS Unless otherwise specified, Testing Performed by: [address] [id number] For Inquires, the Physician may contact the Microbiology department at [phone] --------- --- Objective: Assessment: 1. Left gluteal abscess, status post I and D, 02/13/2020.cult staph aureus 2. Postop hypotension, status post IV fluid infusion.resolved 3. Leukocytosis. 4. Lactic acidosis. 5. Acute kidney injury. 6. History of right nephrectomy for renal cell carcinoma. 7. Hyponatremia. 8. Diabetes mellitus. 9. Arrhythmia; NSVT . Echo with preserved LV systolic function. Plan: Plan of Care cont daptomycin., Zosyn, may need renal dosing. Follow up cultures and lab. Continue supportive care. Continue wound care as directed. Discussed with nursing staff. GABY SANTANA MD February 14, 2020 12:30
[2020-02-14] MEDS: INSULIN LISPRO 300 UNITS/3 ML VIAL. SQ SCH ×2 (13:09→18:35)
--- NOTE | 2020-02-14 13:28 | NUR ---
SS following up with discharge planning. SS reviewed pt chart and discussed with pt RN. Pt is currently on room air. Pt had debridement of abscess and is currently on IV antibiotics. SS will continue to follow for discharge planning.
--- NOTE | 2020-02-14 13:50 | NUR ---
Wound Care Wound care consult for right buttock abscess post op day [address] Hackett. Wound is reddened with amanda slough and mild odor. Wound repacked with gauze packing and ABD pad until Tuesday when vac will be placed. No other wounds noted. WC will follow up on Tuesday.
[2020-02-14] MEDS: DAPTOmycin (GENERIC) IVPB 520 MG in IV NORMAL SALINE 50ML 50 ML IV SCH (15:05)
[2020-02-14 15:28] VITALS: BP 93/50
--- NOTE | 2020-02-14 16:11 | PDOC ---
PROGRESS NOTES Chief Complaint Chief Complaint Left gluteal abscess; s/p I and D Leukocytosis secondary to the above Lactic acidosis secondary to above mentioned infection History of diabetes type 2 insulin requiring Arrhythmia; NSVT vs aberrant AFIB H/o renal CA s/p nephrectomy Acute renal failure secondary to vasomotor etiology most likely S/P mechanical fall secondary to slipping Plan: Follow cultures Continue broad spectrum antibiotics Check neurological status every 4 hours while awake for the next 24 hours follow recommendations from system sales consultant History of Present Illness History of Present Illness Neurologically intact no new complaints pain seems to be well controlled no fe jamel or chills reported overnight no acute events reported overnight. Vitals Vitals Vital Signs Date Time Temp Pulse Resp B/P (MAP) Pulse Ox O2 Delivery O2 Flow Rate FiO2 02/14/20 15:28 97.5 65 18 93/50 (64) 98 Room Air 97.5 02/13/20 10:55 3 Physical Exam Physical Exam GEN [email or web address] male in nad HEENT: Normocephalic, atraumatic, anicteric. NECK: Supple, no JVD, no lymphadenopathy. LUNGS: Clear bilaterally. HEART: S1, S2 regular. ABDOMEN: Soft, nontender, nondistended, no rebound, no guarding. Left gluteal dressing in place, intact, dry, did not take it down. Surrounding area, no erythema, no induration noted. NEUROLOGIC: Alert and oriented x 3, grossly nonfocal. PSYCHIATRIC: Cooperative, appropriate mood and affect DERMATOLOGIC: Warm, dry. No generalized rash. General: Alert, Oriented X3, Cooperative, mild distress Heart: Regular rate, Normal S1, Normal S2 Lungs: Clear Abdomen: Soft, No tenderness Extremities: No edema, Normal pulses Skin: Other (Wounds dressed) Labs LABS Laboratory Tests Test 02/13/20 16:44 02/13/20 20:29 02/14/20 05:00 02/14/20 05:05 Glucose (Fingerstick) 330 mg/dL (70-99) 360 mg/dL (70-99) Magnesium Level 2.0 mg/dL (1.8-2.4) White Blood Count 18.3 x10^3/uL (4.0-11.0) Red Blood Count 4.36 x10^6/uL (4.30-5.70) Hemoglobin 13.0 g/dL (13.0-17.5) Hematocrit 39.9 % (39.0-53.0) Mean Corpuscular Volume 92 fL (79-100) Mean Corpuscular Hemoglobin 30 pg (25-35) Mean Corpuscular Hemoglobin Concent 33 g/dL (31-37) Red Cell Distribution Width 14.1 % (11.5-14.5) Platelet Count 279 x10^3/uL (140-400) Neutrophils (%) (Auto) 92 % (31-73) Lymphocytes (%) (Auto) 3 % (24-48) Monocytes (%) (Auto) 5 % (0-9) Eosinophils (%) (Auto) 0 % (0-3) Basophils (%) (Auto) 0 % (0-3) Neutrophils # (Auto) 16.8 x10^3/uL (1.8-7.7) Lymphocytes # (Auto) 0.6 x10^3/uL (1.0-4.8) Monocytes # (Auto) 0.9 x10^3/uL (0.0-1.1) Eosinophils # (Auto) 0.0 x10^3/uL (0.0-0.7) Basophils # (Auto) 0.0 x10^3/uL (0.0-0.2) Sodium Level 135 mmol/L (136-145) Potassium Level 3.5 mmol/L (3.5-5.1) Chloride Level 102 mmol/L (98-107) Carbon Dioxide Level 20 mmol/L (21-32) Anion Gap 13 (6-14) Blood Urea Nitrogen 23 mg/dL (8-26) Creatinine 1.6 mg/dL (0.7-1.3) Estimated GFR (Cockcroft-Gault) 44.0 BUN/Creatinine Ratio 14 (6-20) Glucose Level 434 mg/dL (70-99) Calcium Level 8.3 mg/dL (8.5-10.1) Total Bilirubin 0.5 mg/dL (0.2-1.0) Aspartate Amino Transf (AST/SGOT) 17 U/L (15-37) Alanine Aminotransferase (ALT/SGPT) 23 U/L (16-63) Alkaline Phosphatase 199 U/L (46-116) Total Protein 5.8 g/dL (6.4-8.2) Albumin 1.7 g/dL (3.4-5.0) Albumin/Globulin Ratio 0.4 (1.0-1.7) Test 02/14/20 07:26 02/14/20 10:59 Glucose (Fingerstick) 411 mg/dL (70-99) 400 mg/dL (70-99) Assessment and Plan Assessmemt and Plan Problems Medical Problems: (1) Gluteal abscess Status: Acute (2) Severe sepsis Status: Acute Comment Review of Relevant I have reviewed the following items antonio (where applicable) has been applied. Labs Laboratory Tests Test 02/12/20 16:53 02/12/20 20:25 02/13/20 04:50 02/13/20 07:54 Glucose (Fingerstick) 241 mg/dL (70-99) 275 mg/dL (70-99) 331 mg/dL (70-99) Potassium Level 3.7 mmol/L (3.5-5.1) Magnesium Level 1.8 mg/dL (1.8-2.4) Triglycerides Level 104 mg/dL (0-150) Cholesterol Level 90 mg/dL (0-200) LDL Cholesterol, Calculated 55 mg/dL (0-100) VLDL Cholesterol, Calculated 21 mg/dL (0-40) Non-HDL Cholesterol Calculated 76 mg/dL (0-129) HDL Cholesterol 14 mg/dL (40-60) Cholesterol/HDL Ratio 6.4 Thyroid Stimulating Hormone (TSH) 1.664 uIU/mL (0.358-3.74) Test 02/13/20 10:10 02/13/20 11:20 02/13/20 16:44 02/13/20 20:29 Glucose (Fingerstick) 275 mg/dL (70-99) 223 mg/dL (70-99) 330 mg/dL (70-99) 360 mg/dL (70-99) Test 02/14/20 05:00 02/14/20 05:05 02/14/20 07:26 02/14/20 10:59 Magnesium Level 2.0 mg/dL (1.8-2.4) White Blood Count 18.3 x10^3/uL (4.0-11.0) Red Blood Count 4.36 x10^6/uL (4.30-5.70) Hemoglobin 13.0 g/dL (13.0-17.5) Hematocrit 39.9 % (39.0-53.0) Mean Corpuscular Volume 92 fL (79-100) Mean Corpuscular Hemoglobin 30 pg (25-35) Mean Corpuscular Hemoglobin Concent 33 g/dL (31-37) Red Cell Distribution Width 14.1 % (11.5-14.5) Platelet Count 279 x10^3/uL (140-400) Neutrophils (%) (Auto) 92 % (31-73) Lymphocytes (%) (Auto) 3 % (24-48) Monocytes (%) (Auto) 5 % (0-9) Eosinophils (%) (Auto) 0 % (0-3) Basophils (%) (Auto) 0 % (0-3) Neutrophils # (Auto) 16.8 x10^3/uL (1.8-7.7) Lymphocytes # (Auto) 0.6 x10^3/uL (1.0-4.8) Monocytes # (Auto) 0.9 x10^3/uL (0.0-1.1) Eosinophils # (Auto) 0.0 x10^3/uL (0.0-0.7) Basophils # (Auto) 0.0 x10^3/uL (0.0-0.2) Sodium Level 135 mmol/L (136-145) Potassium Level 3.5 mmol/L (3.5-5.1) Chloride Level 102 mmol/L (98-107) Carbon Dioxide Level 20 mmol/L (21-32) Anion Gap 13 (6-14) Blood Urea Nitrogen 23 mg/dL (8-26) Creatinine 1.6 mg/dL (0.7-1.3) Estimated GFR (Cockcroft-Gault) 44.0 BUN/Creatinine Ratio 14 (6-20) Glucose Level 434 mg/dL (70-99) Calcium Level 8.3 mg/dL (8.5-10.1) Total Bilirubin 0.5 mg/dL (0.2-1.0) Aspartate Amino Transf (AST/SGOT) 17 U/L (15-37) Alanine Aminotransferase (ALT/SGPT) 23 U/L (16-63) Alkaline Phosphatase 199 U/L (46-116) Total Protein 5.8 g/dL (6.4-8.2) Albumin 1.7 g/dL (3.4-5.0) Albumin/Globulin Ratio 0.4 (1.0-1.7) Glucose (Fingerstick) 411 mg/dL (70-99) 400 mg/dL (70-99) Laboratory Tests Test 02/13/20 16:44 02/13/20 20:29 02/14/20 05:00 02/14/20 05:05 Glucose (Fingerstick) 330 mg/dL (70-99) 360 mg/dL (70-99) Magnesium Level 2.0 mg/dL (1.8-2.4) White Blood Count 18.3 x10^3/uL (4.0-11.0) Red Blood Count 4.36 x10^6/uL (4.30-5.70) Hemoglobin 13.0 g/dL (13.0-17.5) Hematocrit 39.9 % (39.0-53.0) Mean Corpuscular Volume 92 fL (79-100) Mean Corpuscular Hemoglobin 30 pg (25-35) Mean Corpuscular Hemoglobin Concent 33 g/dL (31-37) Red Cell Distribution Width 14.1 % (11.5-14.5) Platelet Count 279 x10^3/uL (140-400) Neutrophils (%) (Auto) 92 % (31-73) Lymphocytes (%) (Auto) 3 % (24-48) Monocytes (%) (Auto) 5 % (0-9) Eosinophils (%) (Auto) 0 % (0-3) Basophils (%) (Auto) 0 % (0-3) Neutrophils # (Auto) 16.8 x10^3/uL (1.8-7.7) Lymphocytes # (Auto) 0.6 x10^3/uL (1.0-4.8) Monocytes # (Auto) 0.9 x10^3/uL (0.0-1.1) Eosinophils # (Auto) 0.0 x10^3/uL (0.0-0.7) Basophils # (Auto) 0.0 x10^3/uL (0.0-0.2) Sodium Level 135 mmol/L (136-145) Potassium Level 3.5 mmol/L (3.5-5.1) Chloride Level 102 mmol/L (98-107) Carbon Dioxide Level 20 mmol/L (21-32) Anion Gap 13 (6-14) Blood Urea Nitrogen 23 mg/dL (8-26) Creatinine 1.6 mg/dL (0.7-1.3) Estimated GFR (Cockcroft-Gault) 44.0 BUN/Creatinine Ratio 14 (6-20) Glucose Level 434 mg/dL (70-99) Calcium Level 8.3 mg/dL (8.5-10.1) Total Bilirubin 0.5 mg/dL (0.2-1.0) Aspartate Amino Transf (AST/SGOT) 17 U/L (15-37) Alanine Aminotransferase (ALT/SGPT) 23 U/L (16-63) Alkaline Phosphatase 199 U/L (46-116) Total Protein 5.8 g/dL (6.4-8.2) Albumin 1.7 g/dL (3.4-5.0) Albumin/Globulin Ratio 0.4 (1.0-1.7) Test 02/14/20 07:26 02/14/20 10:59 Glucose (Fingerstick) 411 mg/dL (70-99) 400 mg/dL (70-99) Microbiology 02/13/20 Gram Stain - Final, Resulted 02/13/20 Aerobic and Anaerobic Culture - Preliminary, Resulted 02/12/20 Blood Culture - Preliminary, Resulted NO GROWTH AFTER 2 DAYS Medications Current Medications Morphine Sulfate (Morphine Sulfate) 4 mg PRN Q15MIN PRN IV/SQ PAIN GREATER THAN 3/10 Last administered on 02/12/20at 12:31; Start 02/12/20 at 12:00; Stop 02/12/20 at 17:37; Status DC Sodium Chloride 1,000 ml @ 1,000 mls/hr Q1H IV Last administered on 02/12/20at 12:31; Start 02/12/20 at 11:58; Stop 02/12/20 at 12:57; Status DC Vancomycin HCl 2 gm/Sodium Chloride 500 ml @ 250 mls/hr 1X ONCE IV ; Start 02/12/20 at 13:00; Stop 02/12/20 at 14:59; Status UNV Piperacillin Sod/ Tazobactam Sod 4.5 gm/Sodium Chloride 100 ml @ 200 mls/hr 1X ONCE IV Last administered on 02/12/20at 13:54; Start 02/12/20 at 13:00; Stop 02/12/20 at 13:29; Status DC Vancomycin HCl 1.25 gm/Sodium Chloride 250 ml @ 166.667 mls/hr 1X ONCE IV Last administered on 02/12/20at 14:33; Start 02/12/20 at 13:15; Stop 02/12/20 at 14:44; Status DC Iohexol (Omnipaque 300 Mg/ml) 60 ml 1X ONCE IV Last administered on 02/12/20at 13:09; Start 02/12/20 at 13:15; Stop 02/12/20 at 13:16; Status DC Sodium Chloride 1,000 ml @ 1,000 mls/hr 1X ONCE IV Last administered on 02/12/20at 14:08; Start 02/12/20 at 14:00; Stop 02/12/20 at 14:59; Status DC Sodium Chloride 500 ml @ 500 mls/hr 1X ONCE IV Last administered on 02/12/20at 14:09; Start 02/12/20 at 14:00; Stop 02/12/20 at 14:59; Status DC Ondansetron HCl (Zofran) 4 mg PRN Q8HRS PRN IV NAUSEA/VOMITING; Start 02/12/20 at 15:15; Stop 02/13/20 at 15:14; Status DC Morphine Sulfate (Morphine Sulfate) 4 mg PRN Q2HR PRN IV PAIN Last administered on 02/13/20at 01:36; Start 02/12/20 at 15:15; Stop 02/13/20 at 15:14; Status DC Insulin Human Regular (HumuLIN R VIAL) 8 unit 1X ONCE IV Last administered on 02/12/20at 16:02; Start 02/12/20 at 15:45; Stop 02/12/20 at 15:46; Status DC Sodium Chloride 1,000 ml @ 100 mls/hr Q10H IV Last administered on 02/14/20at 11:25; Start 02/12/20 at 17:30 Piperacillin Sod/ Tazobactam Sod 3.375 gm/Sodium Chloride 50 ml @ 100 mls/hr Q6HRS IV Last administered on 02/14/20at 13:01; Start 02/12/20 at 18:00 Oxycodone/ Acetaminophen (Percocet 5/325) 1 tab PRN Q4HRS PRN PO PAIN; Start 02/12/20 at 17:45 Insulin Human Lispro (HumaLOG) 8 units TIDAC SQ Last administered on 02/13/20at 18:13; Start 02/13/20 at 07:30; Stop 02/14/20 at 08:55; Status DC Insulin Glargine (Lantus Syringe) 25 unit QHS SQ Last administered on 02/13/20at 21:23; Start 02/12/20 at 21:00; Stop 02/14/20 at 08:07; Status DC Glycopyrrolate (Robinul) 1 mg STK-MED ONCE .ROUTE ; Start 02/13/20 at 08:36; Stop 02/13/20 at 08:36; Status DC Sevoflurane (Ultane) 60 ml STK-MED ONCE IH ; Start 02/13/20 at 08:36; Stop 02/13/20 at 08:36; Status DC Rocuronium Gonzales (Zemuron) 50 mg STK-MED ONCE .ROUTE ; Start 02/13/20 at 08:36; Stop 02/13/20 at 08:36; Status DC Fentanyl Citrate (Fentanyl 2ml Vial) 100 mcg STK-MED ONCE .ROUTE ; Start 02/13/20 at 08:36; Stop 02/13/20 at 08:36; Status DC Neostigmine Gonzales (Neostigmine Methylsulfate) 5 mg STK-MED ONCE .ROUTE ; Start 02/13/20 at 08:36; Stop 02/13/20 at 08:36; Status DC Midazolam HCl (Versed) 2 mg STK-MED ONCE .ROUTE ; Start 02/13/20 at 08:36; Stop 02/13/20 at 08:37; Status DC Succinylcholine Chloride (Anectine) 200 mg STK-MED ONCE .ROUTE ; Start 02/13/20 at 08:37; Stop 02/13/20 at 08:38; Status DC Bupivacaine HCl/ Epinephrine Bitart (Sensorcain-Epi 0.5%-1:880955 Mpf) 30 ml STK-MED ONCE .ROUTE ; Start 02/13/20 at 08:54; Stop 02/13/20 at 08:54; Status DC Ondansetron HCl (Zofran) 4 mg PRN Q6HRS PRN IV NAUSEA/VOMITING; Start 02/13/20 at 09:15; Stop 02/14/20 at 09:14; Status DC Fentanyl Citrate (Fentanyl 2ml Vial) 25 mcg PRN Q5MIN PRN IV MILD PAIN 1-3; Start 02/13/20 at 09:15; Stop 02/14/20 at 09:14; Status DC Fentanyl Citrate (Fentanyl 2ml Vial) 50 mcg PRN Q5MIN PRN IV MODERATE TO SEVERE PAIN; Start 02/13/20 at 09:15; Stop 02/14/20 at 09:14; Status DC Morphine Sulfate (Morphine Sulfate) 1 mg PRN Q10MIN PRN IV SEVERE PAIN 7-10; Start 02/13/20 at 09:15; Stop 02/14/20 at 09:14; Status DC Ringer's Solution 1,000 ml @ 30 mls/hr Q24H IV Last administered on 02/13/20at 09:01; Start 02/13/20 at 09:01; Stop 02/13/20 at 21:00; Status DC Lidocaine HCl (Xylocaine-Mpf 1% 2ml Vial) 2 ml PRN 1X PRN ID PRIOR TO IV START; Start 02/13/20 at 09:15; Stop 02/14/20 at 09:14; Status DC Hydromorphone HCl (Dilaudid) 0.5 mg PRN Q10MIN PRN IV SEV PAIN, Second choice; Start 02/13/20 at 09:15; Stop 02/14/20 at 09:14; Status DC Prochlorperazine Edisylate (Compazine) 5 mg PACU PRN PRN IV NAUSEA, MRX1; Start 02/13/20 at 09:15; Stop 02/14/20 at 09:14; Status DC Phenylephrine HCl (PHENYLEPHRINE in 0.9% NACL PF) 1 mg STK-MED ONCE IV ; Start 02/13/20 at 09:27; Stop 02/13/20 at 09:28; Status DC Insulin Human Lispro (HumaLOG VIAL for OP,RR ONLY) 0-10 units PRN Q1HR PRN SQ PER PROTOCOL Last administered on 02/13/20at 10:30; Start 02/13/20 at 10:30; Stop 02/13/20 at 19:00; Status DC Daptomycin 520 mg/ Sodium Chloride 50 ml @ 100 mls/hr Q24H IV Last administered on 02/14/20at 15:05; Start 02/13/20 at 14:00 Insulin Human Lispro (HumaLOG) 8 units 1X ONCE SQ Last administered on 02/13/20at 21:24; Start 02/13/20 at 21:30; Stop 02/13/20 at 21:31; Status DC Insulin Glargine (Lantus Syringe) 15 unit BID SQ ; Start 02/14/20 at 09:00; Stop 02/14/20 at 08:55; Status DC Insulin Glargine (Lantus Syringe) 20 unit BID SQ ; Start 02/14/20 at 09:00 Insulin Human Lispro (HumaLOG) 10 units TIDAC SQ Last administered on 02/14/20at 13:09; Start 02/14/20 at 11:30 Potassium Chloride (Klor-Con) 20 meq 1X ONCE PO Last administered on 02/14/20at 13:00; Start 02/14/20 at 11:30; Stop 02/14/20 at 11:37; Status DC Active Scripts Active Percocet 5-325 Mg Tablet (Oxycodone/Acetaminophen) 1 Each Tablet 1 Tab PO PRN Q4HRS PRN 7 Days Reported Novolog (Insulin Aspart) 100 Unit/1 Ml Cartridge 8 Unit SQ TIDAC Lantus Solostar (Insulin Glargine,Hum.rec.anlog) 100 Unit/1 Ml Insuln.pen 25 Unit SQ QHS Vitals/I & O Vital Sign - Last 24 Hours 02/13/20 02/13/20 02/14/20 02/14/20 19:57 23:26 03:19 07:40 Temp 98.1 97.4 97.4 97.6 98.1 97.4 97.4 97.6 Pulse 82 67 60 69 Resp 18 20 20 18 B/P (MAP) 94/49 (64) 95/53 (67) 87/47 (60) 113/64 (80) Pulse Ox 96 99 99 99 O2 Delivery Room Air Room Air Room Air 02/14/20 02/14/20 11:31 15:28 Temp 97.4 97.5 97.4 97.5 Pulse 65 65 Resp 18 18 B/P (MAP) 99/52 (68) 93/50 (64) Pulse Ox 98 98 O2 Delivery Room Air Room Air Intake and Output 02/13/20 02/13/20 02/14/20 15:00 23:00 07:00 Intake Total 850 ml 240 ml 300 ml Output Total 231 ml 700 ml 100 ml Balance 619 ml -460 ml 200 ml JD CHURCH MD February 14, 2020 16:11
[2020-02-14] MEDS ORDERED: INSULIN LISPRO 300 UNITS/3 ML VIAL. SQ ONE ×2 (17:30→20:00)
[2020-02-14 19:50] VITALS: BP 104/47
[2020-02-14] MEDS ORDERED: DEXTROSE 50% 25 GM / 50ML DISP.SYRIN. IV PRN (20:00)
[2020-02-14] MEDS: LACTOBACILLUS RHAMNOSUS GG 1 CAPSULE. PO SCH (20:50)
[2020-02-14 23:31] VITALS: BP 104/60
[2020-02-15] VITALS (7 sets, daily range): BP systolic 83–119; BP diastolic 48–69
[2020-02-15] MEDS: PIPERACILLIN/TAZOBACTAM 3.375 GM in IV NORMAL SALINE 50ML 50 ML IV SCH ×4 (01:30→16:59)
[2020-02-15] MEDS: IV NORMAL SALINE 1000ML BAG 1,000 ML IV SCH ×2 (05:52→14:35)
[2020-02-15] MEDS: LACTOBACILLUS RHAMNOSUS GG 1 CAPSULE. PO SCH ×2 (08:12→20:57)
[2020-02-15] MEDS: INSULIN LISPRO 300 UNITS/3 ML VIAL. SQ SCH ×6 (08:15→17:03)
[2020-02-15] MEDS: INSULIN GLARGINE SYRINGE. SQ SCH ×2 (08:15→20:59)
--- NOTE | 2020-02-15 10:58 | PDOC ---
Infectious Disease Note Subjective: Subjective Patient feels better Postop pain is under control Denies fever, nausea, vomiting, shortness of breath, diarrhea, abdominal pain, rash Otherwise as above Vital Signs: Vital Signs Vital Signs Date Time Temp Pulse Resp B/P (MAP) Pulse Ox O2 Delivery O2 Flow Rate FiO2 02/15/20 08:00 Room Air 02/15/20 07:25 98.7 74 18 107/61 (76) 96 98.7 Physical Exam: PHYSICAL EXAM GEN [email or web address] male in nad HEENT: Normocephalic, atraumatic, anicteric. NECK: Supple, no JVD, no lymphadenopathy. LUNGS: Clear bilaterally. HEART: S1, S2 regular. ABDOMEN: Soft, nontender, nondistended, no rebound, no guarding. Left gluteal Large wound, fecal soilage, deep tunneled wound surrounding area, no erythema, no induration noted. NEUROLOGIC: Alert and oriented x 3, grossly nonfocal. PSYCHIATRIC: Cooperative, appropriate mood and affect DERMATOLOGIC: Warm, dry. No generalized rash. Medications: Inpatient Meds: Current Medications Medications (Trade) Dose Ordered Sig/Ty Start Time Stop Time Status Last Admin Dose Admin Bupivacaine HCl/ Epinephrine Bitart (Sensorcain-Epi 0.5%-1:390851 Mpf) 30 ml STK-MED ONCE 02/13/20 08:54 02/13/20 08:54 DC Daptomycin 520 mg/ Sodium Chloride 50 ml @ 100 mls/hr Q24H 02/13/20 14:00 02/14/20 15:05 100 MLS/HR Dextrose (Dextrose 50%-Water Syringe) 12.5 gm PRN Q15MIN PRN 02/14/20 20:00 Fentanyl Citrate (Fentanyl 2ml Vial) 50 mcg PRN Q5MIN PRN 02/13/20 09:15 02/14/20 09:14 DC Glycopyrrolate (Robinul) 1 mg STK-MED ONCE 02/13/20 08:36 02/13/20 08:36 DC Hydromorphone HCl (Dilaudid) 0.5 mg PRN Q10MIN PRN 02/13/20 09:15 02/14/20 09:14 DC Insulin Glargine (Lantus Syringe) 20 unit BID 02/14/20 09:00 02/15/20 08:15 20 UNIT Insulin Human Lispro (HumaLOG VIAL for OP,RR ONLY) 0-10 units PRN Q1HR PRN 02/13/20 10:30 02/13/20 19:00 DC 02/13/20 10:30 8 UNIT Insulin Human Lispro (HumaLOG) 0-7 UNITS TIDWMEALS 02/15/20 08:00 02/15/20 08:15 7 UNITS Insulin Human Regular (HumuLIN R VIAL) 8 unit 1X ONCE 02/12/20 15:45 02/12/20 15:46 DC 02/12/20 16:02 5 UNIT Iohexol (Omnipaque 300 Mg/ml) 60 ml 1X ONCE 02/12/20 13:15 02/12/20 13:16 DC 02/12/20 13:09 60 ML Lactobacillus Rhamnosus (Culturelle) 1 cap BID 02/14/20 21:00 02/15/20 08:12 1 CAP Lidocaine HCl (Xylocaine-Mpf 1% 2ml Vial) 2 ml PRN 1X PRN 02/13/20 09:15 02/14/20 09:14 DC Midazolam HCl (Versed) 2 mg STK-MED ONCE 02/13/20 08:36 02/13/20 08:37 DC Morphine Sulfate (Morphine Sulfate) 1 mg PRN Q10MIN PRN 02/13/20 09:15 02/14/20 09:14 DC Neostigmine Whitney (Neostigmine Methylsulfate) 5 mg STK-MED ONCE 02/13/20 08:36 02/13/20 08:36 DC Ondansetron HCl (Zofran) 4 mg PRN Q6HRS PRN 02/13/20 09:15 02/14/20 09:14 DC Oxycodone/ Acetaminophen (Percocet 5/325) 1 tab PRN Q4HRS PRN 02/12/20 17:45 Phenylephrine HCl (PHENYLEPHRINE in 0.9% NACL PF) 1 mg STK-MED ONCE 02/13/20 09:27 02/13/20 09:28 DC Piperacillin Sod/ Tazobactam Sod 3.375 gm/Sodium Chloride 50 ml @ 100 mls/hr Q6HRS 02/12/20 18:00 02/15/20 05:51 100 MLS/HR Piperacillin Sod/ Tazobactam Sod 4.5 gm/Sodium Chloride 100 ml @ 200 mls/hr 1X ONCE 02/12/20 13:00 02/12/20 13:29 DC 02/12/20 13:54 200 MLS/HR Potassium Chloride (Klor-Con) 20 meq 1X ONCE 02/14/20 11:30 02/14/20 11:37 DC 02/14/20 13:00 20 MEQ Prochlorperazine Edisylate (Compazine) 5 mg PACU PRN PRN 02/13/20 09:15 02/14/20 09:14 DC Ringer's Solution 1,000 ml @ 30 mls/hr Q24H 02/13/20 09:01 02/13/20 21:00 DC 02/13/20 09:01 30 MLS/HR Rocuronium Whitney (Zemuron) 50 mg STK-MED ONCE 02/13/20 08:36 02/13/20 08:36 DC Sevoflurane (Ultane) 60 ml STK-MED ONCE 02/13/20 08:36 02/13/20 08:36 DC Sodium Chloride 1,000 ml @ 100 mls/hr Q10H 02/12/20 17:30 02/15/20 05:52 100 MLS/HR Succinylcholine Chloride (Anectine) 200 mg STK-MED ONCE 02/13/20 08:37 02/13/20 08:38 DC Vancomycin HCl 1.25 gm/Sodium Chloride 250 ml @ 166.667 mls/hr 1X ONCE 02/12/20 13:15 02/12/20 14:44 DC 02/12/20 14:33 166.667 MLS/HR Vancomycin HCl 2 gm/Sodium Chloride 500 ml @ 250 mls/hr 1X ONCE 02/12/20 13:00 02/12/20 14:59 UNV Labs: Lab Laboratory Tests Test 02/14/20 10:59 02/14/20 16:38 02/14/20 19:21 02/14/20 23:38 Glucose (Fingerstick) 400 mg/dL (70-99) 377 mg/dL (70-99) 420 mg/dL (70-99) 347 mg/dL (70-99) Test 02/15/20 07:34 Glucose (Fingerstick) 328 mg/dL (70-99) Micro RUN DATE: 02/15/20 [facility] *LIVE* PAGE 1 RUN TIME: 1033 Specimen Inquiry PATIENT: MARIA LUISA MANLEY ACCT: [id number] LOC: [address] [place] [address] U: [id number] AGE/SX: 64/M ROOM: [facility] RE02/12/[address]: PAPITO HERNANDEZ III, DO : 1955 BED: 1 DIS: STATUS: ADM IN TLOC: SPEC #: [id number] EULALIA: 02/13/20 STATUS: RES REQ #: [id number] RECD: 02/13/20-[address]: PAPITO HERNANDEZ III, DO SOURCE: DRAINAGE ENTR: 02/13/20-[address]: BRIANA SANTANA MD SPDC: KB SYED MD, KATHLEEN R MD ORDERED: ANAER/AEROB/KAREN COMMENTS: LEFT GLUTEAL ABSCESS Procedure Result GRAM STAIN Final Final GRAM POSITIVE COCCI:FEW SQUAMOUS EPI CELL:NONE SEEN PMN (WBCs):RARE Unless otherwise specified, Testing Performed by: [address] [address] For Inquires, the Physician may contact the Microbiology department at [phone] ANAEROBIC-AEROBIC CULTURE Preliminary Preliminary MODERATE GRAM POSITIVE COCCI on 02/14/20 at 1040 FINAL ID= [STAPHYLOCOCCUS AUREUS] STAPHYLOCOCCUS AUREUS ANTIMICROBIAL SUSCEPTIBILITY Preliminary Comment POS SANJUANITA TYPE 38 STAPHYLOCOCCUS AUREUS ANTIBIOTIC RESULT INTERPRETATION AZITHROMYCIN <=2 S CLINDAMYCIN 0.5 S CEFOXITIN SCREEN <=4 NEG CIPROFLOXACIN >2 R CEFTAROLINE <=0.5 S DAPTOMYCIN <=0.5 S ERYTHROMYCIN 0.5 S GENTAMICIN <=4 S LINEZOLID 2 S LEVOFLOXACIN 4 I OXACILLIN <=0.25 S PENICILLIN <=0.03 Renard RIFAMPIN <=1 S TRIMETHOPRIM/SULFAMETHOXAZOLE <=0.5/9.5 S TETRACYCLINE <=4 S CONTINUED ON NEXT PAGE RUN DATE: 02/15/20 [facility] *LIVE* PAGE 2 RUN TIME: 1033 Specimen Inquiry SPEC: [id number] PATIENT: MARIA LUISA MANLEY [id number] (Continued) Procedure Result ANTIMICROBIAL SUSCEPTIBILITY Preliminary (continued) VANCOMYCIN 1 S Unless otherwise specified, Testing Performed by: [address] [place] [address] For Inquires, the Physician may contact the Microbiology department at [phone] Objective: Assessment: 1. Left gluteal abscess, status post I and D, 02/13/2020.cult staph aureus 2. Postop hypotension, status post IV fluid infusion.resolved 3. Leukocytosis. 4. Lactic acidosis. 5. Acute kidney injury. 6. History of right nephrectomy for renal cell carcinoma. 7. Hyponatremia. 8. Diabetes mellitus. 9. Arrhythmia; NSVT . Echo with preserved LV systolic function. Plan: Plan of Care DC daptomycin and Zosyn, Midline IV Invanz Anticipate slow response due to close proximity with anal canal and fecal soilage Wound /VAC care as directed Follow up cultures and lab. Continue supportive care. Discussed with nursing staff. GABY SANTANA MD February 15, 2020 10:58
--- NOTE | 2020-02-15 11:06 | NUR ---
Wound Skilled Nursing wound vac application has been submitted through [facility], will follow ty status throughout the day. If not approved by end of day, will not hear anything until Tuesday. Pt may discharge with packing changes and we will have pt f/u in [facility] next week for application of home wound vac.
--- NOTE | 2020-02-15 11:37 | NUR ---
SS following up with discharge planning. SS reviewed pt chart and discussed with pt RN. Pt is currently on room air. Pt was ordered a wound vac today. Cultures currently pending. ID notified RN and SS that pt would need snf IV antibiotics but the exact antibiotic has not been determined at this time. Pt currently on Dapto and Zosyn. Dr. Ledbetter requesting midline and not PICC placement. SS will continue to follow for discharge planning.
--- NOTE | 2020-02-15 12:07 | NUR ---
SS following up with discharge planning. SS discussed with Dr. Ledbetter. PICC line ordered. SS will continue to follow for discharge planning.
[2020-02-15] MEDS: oxyCODONE/APAP 5/325 1 TAB TABLET PO PRN ×2 (14:34→20:57)
[2020-02-15] MEDS: DAPTOmycin (GENERIC) IVPB 520 MG in IV NORMAL SALINE 50ML 50 ML IV SCH (14:35)
--- NOTE | 2020-02-15 15:19 | NUR ---
Wound Care Wound Type/Assessment: Left gluteal abscess, s/p surgical I&D. Per progress note, Dr. Hackett approved of wound vac placement. Dressing and packing removed, wound cleaned with saline. Wound bed beefy red with a moderate amount of scattered yellow slough throughout wound bed, periwound dark red, slight odor noted. Treatment Recommendations/Plan: Periwound skin prepped with skin prep and ostomy ring applied. 1 piece of silver foam placed into wound bed, foam tracked to R upper thigh, vac showing strong seal at -125 mmHg continuous suction. Pt tolerated with moderate amount of pain, Katherine, RN bringing pt pain meds at this time, as she was unavailable at beginning of procedure and pt stated to begin anyway. Education provided: to pt re: benefits of vac therapy, f/u in the [facility] after d/c, and awaiting vac approval from [facility] for home vac. Instructed pt that he does not need to wait for home wound vac to be d/c'd home, as we can apply vac next week in the clinic. Pt may be packed with Iodoform packing and ABD in the meantime, pt v/u. Offloading surface/device: N/A Recommended Referrals/Tests: N/A Discharge Recommendations for dressings: wound vac, or Iodoform packing/ABD/tape until vac is approved.
--- NOTE | 2020-02-15 16:20 | PDOC ---
PROGRESS NOTES Chief Complaint Chief Complaint Left gluteal abscess; s/p I and D Leukocytosis secondary to the above Lactic acidosis secondary to above mentioned infection History of diabetes type 2 insulin requiring Arrhythmia; NSVT vs aberrant AFIB H/o renal CA s/p nephrectomy Acute renal failure secondary to vasomotor etiology most likely S/P mechanical fall secondary to slipping Plan: Follow cultures Continue broad spectrum antibiotics Wound VAC placement today follow recommendations from senior consultant History of Present Illness History of Present Illness Neurologically intact no new complaints pain seems to be well controlled no fever or chills reported overnight no acute events reported overnight. Vitals Vitals Vital Signs Date Time Temp Pulse Resp B/P (MAP) Pulse Ox O2 Delivery O2 Flow Rate FiO2 02/15/20 15:43 97.9 74 18 114/64 (81) 98 Room Air 97.9 Physical Exam Physical Exam GEN [id number] male in nad HEENT: Normocephalic, atraumatic, anicteric. NECK: Supple, no JVD, no lymphadenopathy. LUNGS: Clear bilaterally. HEART: S1, S2 regular. ABDOMEN: Soft, nontender, nondistended, no rebound, no guarding. Left gluteal Large wound, fecal soilage, deep tunneled wound surrounding area, no erythema, no induration noted. NEUROLOGIC: Alert and oriented x 3, grossly nonfocal. PSYCHIATRIC: Cooperative, appropriate mood and affect DERMATOLOGIC: Warm, dry. No generalized rash. General: Alert, Oriented X3, Cooperative, mild distress Heart: Regular rate, Normal S1, Normal S2 Lungs: Clear Abdomen: Soft, No tenderness Extremities: No edema, Normal pulses Skin: Other (Wounds dressed) Labs LABS Laboratory Tests Test 02/14/20 16:38 02/14/20 19:21 02/14/20 23:38 02/15/20 07:34 Glucose (Fingerstick) 377 mg/dL (70-99) 420 mg/dL (70-99) 347 mg/dL (70-99) 328 mg/dL (70-99) Test 02/15/20 11:15 Glucose (Fingerstick) 184 mg/dL (70-99) Assessment and Plan Assessmemt and Plan Problems Medical Problems: (1) Gluteal abscess Status: Acute (2) Severe sepsis Status: Acute Comment Review of Relevant I have reviewed the following items antonio (where applicable) has been applied. Labs Laboratory Tests Test 02/13/20 16:44 02/13/20 20:29 02/14/20 05:00 02/14/20 05:05 Glucose (Fingerstick) 330 mg/dL (70-99) 360 mg/dL (70-99) Magnesium Level 2.0 mg/dL (1.8-2.4) White Blood Count 18.3 x10^3/uL (4.0-11.0) Red Blood Count 4.36 x10^6/uL (4.30-5.70) Hemoglobin 13.0 g/dL (13.0-17.5) Hematocrit 39.9 % (39.0-53.0) Mean Corpuscular Volume 92 fL (79-100) Mean Corpuscular Hemoglobin 30 pg (25-35) Mean Corpuscular Hemoglobin Concent 33 g/dL (31-37) Red Cell Distribution Width 14.1 % (11.5-14.5) Platelet Count 279 x10^3/uL (140-400) Neutrophils (%) (Auto) 92 % (31-73) Lymphocytes (%) (Auto) 3 % (24-48) Monocytes (%) (Auto) 5 % (0-9) Eosinophils (%) (Auto) 0 % (0-3) Basophils (%) (Auto) 0 % (0-3) Neutrophils # (Auto) 16.8 x10^3/uL (1.8-7.7) Lymphocytes # (Auto) 0.6 x10^3/uL (1.0-4.8) Monocytes # (Auto) 0.9 x10^3/uL (0.0-1.1) Eosinophils # (Auto) 0.0 x10^3/uL (0.0-0.7) Basophils # (Auto) 0.0 x10^3/uL (0.0-0.2) Sodium Level 135 mmol/L (136-145) Potassium Level 3.5 mmol/L (3.5-5.1) Chloride Level 102 mmol/L (98-107) Carbon Dioxide Level 20 mmol/L (21-32) Anion Gap 13 (6-14) Blood Urea Nitrogen 23 mg/dL (8-26) Creatinine 1.6 mg/dL (0.7-1.3) Estimated GFR (Cockcroft-Gault) 44.0 BUN/Creatinine Ratio 14 (6-20) Glucose Level 434 mg/dL (70-99) Calcium Level 8.3 mg/dL (8.5-10.1) Total Bilirubin 0.5 mg/dL (0.2-1.0) Aspartate Amino Transf (AST/SGOT) 17 U/L (15-37) Alanine Aminotransferase (ALT/SGPT) 23 U/L (16-63) Alkaline Phosphatase 199 U/L (46-116) Total Protein 5.8 g/dL (6.4-8.2) Albumin 1.7 g/dL (3.4-5.0) Albumin/Globulin Ratio 0.4 (1.0-1.7) Test 02/14/20 07:26 02/14/20 10:59 02/14/20 16:38 02/14/20 19:21 Glucose (Fingerstick) 411 mg/dL (70-99) 400 mg/dL (70-99) 377 mg/dL (70-99) 420 mg/dL (70-99) Test 02/14/20 23:38 02/15/20 07:34 02/15/20 11:15 Glucose (Fingerstick) 347 mg/dL (70-99) 328 mg/dL (70-99) 184 mg/dL (70-99) Laboratory Tests Test 02/14/20 16:38 02/14/20 19:21 02/14/20 23:38 02/15/20 07:34 Glucose (Fingerstick) 377 mg/dL (70-99) 420 mg/dL (70-99) 347 mg/dL (70-99) 328 mg/dL (70-99) Test 02/15/20 11:15 Glucose (Fingerstick) 184 mg/dL (70-99) Microbiology 02/13/20 Gram Stain - Final, Resulted 02/13/20 Aerobic and Anaerobic Culture - Preliminary, Resulted 02/13/20 Antimicrobic Susceptibility - Preliminary, Resulted 02/12/20 Blood Culture - Preliminary, Resulted NO GROWTH AFTER 3 DAYS Medications Current Medications Morphine Sulfate (Morphine Sulfate) 4 mg PRN Q15MIN PRN IV/SQ PAIN GREATER THAN 3/10 Last administered on 02/12/20at 12:31; Start 02/12/20 at 12:00; Stop 02/12/20 at 17:37; Status DC Sodium Chloride 1,000 ml @ 1,000 mls/hr Q1H IV Last administered on 02/12/20at 12:31; Start 02/12/20 at 11:58; Stop 02/12/20 at 12:57; Status DC Vancomycin HCl 2 gm/Sodium Chloride 500 ml @ 250 mls/hr 1X ONCE IV ; Start 02/12/20 at 13:00; Stop 02/12/20 at 14:59; Status UNV Piperacillin Sod/ Tazobactam Sod 4.5 gm/Sodium Chloride 100 ml @ 200 mls/hr 1X ONCE IV Last administered on 02/12/20at 13:54; Start 02/12/20 at 13:00; Stop 02/12/20 at 13:29; Status DC Vancomycin HCl 1.25 gm/Sodium Chloride 250 ml @ 166.667 mls/hr 1X ONCE IV Last administered on 02/12/20at 14:33; Start 02/12/20 at 13:15; Stop 02/12/20 at 14:44; Status DC Iohexol (Omnipaque 300 Mg/ml) 60 ml 1X ONCE IV Last administered on 02/12/20at 13:09; Start 02/12/20 at 13:15; Stop 02/12/20 at 13:16; Status DC Sodium Chloride 1,000 ml @ 1,000 mls/hr 1X ONCE IV Last administered on 02/12/20at 14:08; Start 02/12/20 at 14:00; Stop 02/12/20 at 14:59; Status DC Sodium Chloride 500 ml @ 500 mls/hr 1X ONCE IV Last administered on 02/12/20at 14:09; Start 02/12/20 at 14:00; Stop 02/12/20 at 14:59; Status DC Ondansetron HCl (Zofran) 4 mg PRN Q8HRS PRN IV NAUSEA/VOMITING; Start 02/12/20 at 15:15; Stop 02/13/20 at 15:14; Status DC Morphine Sulfate (Morphine Sulfate) 4 mg PRN Q2HR PRN IV PAIN Last administered on 02/13/20at 01:36; Start 02/12/20 at 15:15; Stop 02/13/20 at 15:14; Status DC Insulin Human Regular (HumuLIN R VIAL) 8 unit 1X ONCE IV Last administered on 02/12/20at 16:02; Start 02/12/20 at 15:45; Stop 02/12/20 at 15:46; Status DC Sodium Chloride 1,000 ml @ 100 mls/hr Q10H IV Last administered on 02/15/20at 14:35; Start 02/12/20 at 17:30 Piperacillin Sod/ Tazobactam Sod 3.375 gm/Sodium Chloride 50 ml @ 100 mls/hr Q6HRS IV Last administered on 02/15/20at 12:19; Start 02/12/20 at 18:00 Oxycodone/ Acetaminophen (Percocet 5/325) 1 tab PRN Q4HRS PRN PO PAIN Last administered on 02/15/20at 14:34; Start 02/12/20 at 17:45 Insulin Human Lispro (HumaLOG) 8 units TIDAC SQ Last administered on 02/13/20at 18:13; Start 02/13/20 at 07:30; Stop 02/14/20 at 08:55; Status DC Insulin Glargine (Lantus Syringe) 25 unit QHS SQ Last administered on 02/13/20at 21:23; Start 02/12/20 at 21:00; Stop 02/14/20 at 08:07; Status DC Glycopyrrolate (Robinul) 1 mg STK-MED ONCE .ROUTE ; Start 02/13/20 at 08:36; Stop 02/13/20 at 08:36; Status DC Sevoflurane (Ultane) 60 ml STK-MED ONCE IH ; Start 02/13/20 at 08:36; Stop 02/13/20 at 08:36; Status DC Rocuronium [place] (Zemuron) 50 mg STK-MED ONCE .ROUTE ; Start 02/13/20 at 08:36; Stop 02/13/20 at 08:36; Status DC Fentanyl Citrate (Fentanyl 2ml Vial) 100 mcg STK-MED ONCE .ROUTE ; Start 02/13/20 at 08:36; Stop 02/13/20 at 08:36; Status DC Neostigmine [place] (Neostigmine Methylsulfate) 5 mg STK-MED ONCE .ROUTE ; Start 02/13/20 at 08:36; Stop 02/13/20 at 08:36; Status DC Midazolam HCl (Versed) 2 mg STK-MED ONCE .ROUTE ; Start 02/13/20 at 08:36; Stop 02/13/20 at 08:37; Status DC Succinylcholine Chloride (Anectine) 200 mg STK-MED ONCE .ROUTE ; Start 02/13/20 at 08:37; Stop 02/13/20 at 08:38; Status DC Bupivacaine HCl/ Epinephrine Bitart (Sensorcain-Epi 0.5%-1:669251 Mpf) 30 ml STK-MED ONCE .ROUTE ; Start 02/13/20 at 08:54; Stop 02/13/20 at 08:54; Status DC Ondansetron HCl (Zofran) 4 mg PRN Q6HRS PRN IV NAUSEA/VOMITING; Start 02/13/20 at 09:15; Stop 02/14/20 at 09:14; Status DC Fentanyl Citrate (Fentanyl 2ml Vial) 25 mcg PRN Q5MIN PRN IV MILD PAIN 1-3; Start 02/13/20 at 09:15; Stop 02/14/20 at 09:14; Status DC Fentanyl Citrate (Fentanyl 2ml Vial) 50 mcg PRN Q5MIN PRN IV MODERATE TO SEVERE PAIN; Start 02/13/20 at 09:15; Stop 02/14/20 at 09:14; Status DC Morphine Sulfate (Morphine Sulfate) 1 mg PRN Q10MIN PRN IV SEVERE PAIN 7-10; Start 02/13/20 at 09:15; Stop 02/14/20 at 09:14; Status DC Ringer's Solution 1,000 ml @ 30 mls/hr Q24H IV Last administered on 02/13/20at 09:01; Start 02/13/20 at 09:01; Stop 02/13/20 at 21:00; Status DC Lidocaine HCl (Xylocaine-Mpf 1% 2ml Vial) 2 ml PRN 1X PRN ID PRIOR TO IV START; Start 02/13/20 at 09:15; Stop 02/14/20 at 09:14; Status DC Hydromorphone HCl (Dilaudid) 0.5 mg PRN Q10MIN PRN IV SEV PAIN, Second choice; Start 02/13/20 at 09:15; Stop 02/14/20 at 09:14; Status DC Prochlorperazine Edisylate (Compazine) 5 mg PACU PRN PRN IV NAUSEA, MRX1; Start 02/13/20 at 09:15; Stop 02/14/20 at 09:14; Status DC Phenylephrine HCl (PHENYLEPHRINE in 0.9% NACL PF) 1 mg STK-MED ONCE IV ; Start 02/13/20 at 09:27; Stop 02/13/20 at 09:28; Status DC Insulin Human Lispro (HumaLOG VIAL for OP,RR ONLY) 0-10 units PRN Q1HR PRN SQ PER PROTOCOL Last administered on 02/13/20at 10:30; Start 02/13/20 at 10:30; Stop 02/13/20 at 19:00; Status DC Daptomycin 520 mg/ Sodium Chloride 50 ml @ 100 mls/hr Q24H IV Last administered on 02/15/20at 14:35; Start 02/13/20 at 14:00 Insulin Human Lispro (HumaLOG) 8 units 1X ONCE SQ Last administered on 02/13/20at 21:24; Start 02/13/20 at 21:30; Stop 02/13/20 at 21:31; Status DC Insulin Glargine (Lantus Syringe) 15 unit BID SQ ; Start 02/14/20 at 09:00; Stop 02/14/20 at 08:55; Status DC Insulin Glargine (Lantus Syringe) 20 unit BID SQ Last administered on 02/15/20at 08:15; Start 02/14/20 at 09:00 Insulin Human Lispro (HumaLOG) 10 units TIDAC SQ Last administered on 02/15/20at 12:23; Start 02/14/20 at 11:30 Potassium Chloride (Klor-Con) 20 meq 1X ONCE PO Last administered on 02/14/20at 13:00; Start 02/14/20 at 11:30; Stop 02/14/20 at 11:37; Status DC Insulin Human Lispro (HumaLOG) 2 units 1X ONCE SQ Last administered on 02/14/20at 18:36; Start 02/14/20 at 17:30; Stop 02/14/20 at 17:31; Status DC Lactobacillus Rhamnosus (Culturelle) 1 cap BID PO Last administered on 02/15/20at 08:12; Start 02/14/20 at 21:00 Insulin Human Lispro (HumaLOG) 12 units ONCE ONCE SQ Last administered on 02/14/20at 20:14; Start 02/14/20 at 20:00; Stop 02/14/20 at 20:01; Status DC Insulin Human Lispro (HumaLOG) 0-7 UNITS TIDWMEALS SQ Last administered on 02/15/20at 12:24; Start 02/15/20 at 08:00 Dextrose (Dextrose 50%-Water Syringe) 12.5 gm PRN Q15MIN PRN IV SEE COMMENTS; Start 02/14/20 at 20:00 Active Scripts Active Percocet 5-325 Mg Tablet (Oxycodone/Acetaminophen) 1 Each Tablet 1 Tab PO PRN Q4HRS PRN 7 Days Reported Novolog (Insulin Aspart) 100 Unit/1 Ml Cartridge 8 Unit SQ TIDAC Lantus Solostar (Insulin Glargine,Hum.rec.anlog) 100 Unit/1 Ml Insuln.pen 25 Unit SQ QHS Vitals/I & O Vital Sign - Last 24 Hours 02/14/20 02/14/20 02/14/20 02/15/20 19:50 20:00 23:31 03:45 Temp 97.4 97.7 98.2 97.4 97.7 98.2 Pulse 73 78 82 Resp 16 16 16 B/P (MAP) 104/47 (66) 104/60 (75) 119/69 (86) Pulse Ox 95 98 96 O2 Delivery Room Air Room Air Room Air Room Air 02/15/20 02/15/20 02/15/20 02/15/20 07:25 08:00 11:40 14:34 Temp 98.7 97.6 98.7 97.6 Pulse 74 82 Resp 18 16 B/P (MAP) 107/61 (76) 110/59 (76) Pulse Ox 96 96 O2 Delivery Room Air Room Air Room Air Room Air 02/15/20 02/15/20 15:34 15:43 Temp 97.9 97.9 Pulse 74 Resp 18 B/P (MAP) 114/64 (81) Pulse Ox 98 O2 Delivery Room Air Room Air Intake and Output 02/14/20 02/14/20 02/15/20 15:00 23:00 07:00 Intake Total 1850 ml 300 ml Output Total 325 ml 825 ml 550 ml Balance 1525 ml -525 ml -550 ml JD CHURCH MD February 15, 2020 16:20
[2020-02-16] MEDS: IV NORMAL SALINE 1000ML BAG 1,000 ML IV SCH ×3 (01:30→21:30)
[2020-02-16] MEDS: PIPERACILLIN/TAZOBACTAM 3.375 GM in IV NORMAL SALINE 50ML 50 ML IV SCH ×4 (01:30→18:08)
[2020-02-16 03:42] VITALS: BP 117/64
[2020-02-16] MEDS: oxyCODONE/APAP 5/325 1 TAB TABLET PO PRN ×2 (04:50→18:13)
[2020-02-16 05:09] LABS: BASO % 1 % (0-3); EOS # 0.3 x10^3/uL (0.0-0.7); EOS % 3 % (0-3); HEMATOCRIT 37.5 % (39.0-53.0); HEMOGLOBIN 12.2 g/dL (13.0-17.5); LYMPH # 1.7 x10^3/uL (1.0-4.8); LYMPH % 19 % (24-48); MEAN CORPUSCULAR HEMOGLOBIN 29 pg (25-35); MEAN CORPUSCULAR HGB CONC 33 g/dL (31-37); MEAN CORPUSCULAR VOLUME 90 fL (79-100); MONO # 1.1 x10^3/uL (0.0-1.1); MONO % 12 % (0-9); NEUT # 6.1 x10^3/uL (1.8-7.7); NEUT % 66 % (31-73); PLATELET COUNT 291 x10^3/uL (140-400); RED BLOOD COUNT 4.16 x10^6/uL (4.30-5.70); RED CELL DISTRIBUTION WIDTH 14.2 % (11.5-14.5); WHITE BLOOD COUNT 9.2 x10^3/uL (4.0-11.0)
[2020-02-16 05:15] LABS: ALBUMIN 1.6 g/dL (3.4-5.0); ALBUMIN/GLOBULIN RATIO 0.5 (1.0-1.7); CALCIUM 7.8 mg/dL (8.5-10.1); CREATININE 1.5 mg/dL (0.7-1.3); GFR 47.4; POTASSIUM 3.2 mmol/L (3.5-5.1); TOTAL BILIRUBIN 0.4 mg/dL (0.2-1.0)
--- NOTE | 2020-02-16 07:20 | NUR ---
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
[2020-02-16] MEDS: INSULIN LISPRO 300 UNITS/3 ML VIAL. SQ SCH ×6 (07:27→17:00)
[2020-02-16 07:35] VITALS: BP 118/65
--- NOTE | 2020-02-16 07:55 | NUR ---
PICC Insertion Note Procedure: Following complete explanation of the PICC procedure including the indications, risks, and potential complications, informed consent was obtained. The possibility for infection was discussed along with signs, symptoms, and prevention. All the questions were answered. Written and verbal patient education was provided. Hand hygiene performed. Standardized central line checklist was utilized. The patient was placed in the supine position, the arm was prepped with chlorhexidine and patient draped with maximum sterile barrier. 2 mL 1% lidocaine was infiltrated into the skin to provide local anesthesia. A thorough assessment of right upper extremity completed. Using real-time ultrasound guidance and standardized micro puncture set, the Cephalic vein was punctured and a peel away sheath was placed using the modified Seldinger technique. A tip location device was used to ensure adequate catheter placement. The catheter was secured using a securement device and an antimicrobial patch was applied directly on the insertion site followed by a transparent dressing. All ports withdraw blood and flush without resistance. Patient tolerated the procedure without apparent complication(s). Single Lumen Power PICC placement successful and uncomplicated. Placement verified by EKG tip confirmation system and/or chest x-ray. Tip located in the CAJ/SVC. Complications: none Catheter trimmed at 44cm with 1cm visible at insertion site.
[2020-02-16] MEDS: INSULIN GLARGINE SYRINGE. SQ SCH ×2 (08:39→21:09)
[2020-02-16] MEDS: LACTOBACILLUS RHAMNOSUS GG 1 CAPSULE. PO SCH ×2 (09:09→21:09)
--- NOTE | 2020-02-16 09:25 | PDOC ---
Infectious Disease Note Subjective Subjective Says pain level tolerable, no worse s/p PICC placement Denies F/C/N/V/D ROS ROS as mentioned above Vital Sign Vital Signs Vital Signs Date Time Temp Pulse Resp B/P (MAP) Pulse Ox O2 Delivery O2 Flow Rate FiO2 02/16/20 07:35 98.1 72 18 118/65 (82) 98 Room Air 98.1 02/16/20 05:50 3.0 Physical Exam PHYSICAL EXAM GENERAL: Lying on left side position, alert, appears relaxed HEENT: Oral cavity clear, no thrush NECK: Supple LUNGS: Clear bilaterally. HEART: S1, S2 regular. ABDOMEN: Soft. Large left gluteal wound wound vac in place, no area redness or induration EXTREMITIES: No edema. SKIN: without rash. NEUROLOGIC: Alert and oriented x 3, grossly nonfocal. PSYCHIATRIC: Cooperative, appropriate mood and affect RUE-PICC (02/15) without signs of complications PIV Labs Lab Laboratory Tests Test 02/15/20 11:15 02/15/20 16:41 02/15/20 20:46 02/16/20 04:30 Glucose (Fingerstick) 184 mg/dL (70-99) 112 mg/dL (70-99) 85 mg/dL (70-99) White Blood Count 9.2 x10^3/uL (4.0-11.0) Red Blood Count 4.16 x10^6/uL (4.30-5.70) Hemoglobin 12.2 g/dL (13.0-17.5) Hematocrit 37.5 % (39.0-53.0) Mean Corpuscular Volume 90 fL (79-100) Mean Corpuscular Hemoglobin 29 pg (25-35) Mean Corpuscular Hemoglobin Concent 33 g/dL (31-37) Red Cell Distribution Width 14.2 % (11.5-14.5) Platelet Count 291 x10^3/uL (140-400) Neutrophils (%) (Auto) 66 % (31-73) Lymphocytes (%) (Auto) 19 % (24-48) Monocytes (%) (Auto) 12 % (0-9) Eosinophils (%) (Auto) 3 % (0-3) Basophils (%) (Auto) 1 % (0-3) Neutrophils # (Auto) 6.1 x10^3/uL (1.8-7.7) Lymphocytes # (Auto) 1.7 x10^3/uL (1.0-4.8) Monocytes # (Auto) 1.1 x10^3/uL (0.0-1.1) Eosinophils # (Auto) 0.3 x10^3/uL (0.0-0.7) Basophils # (Auto) 0.0 x10^3/uL (0.0-0.2) Sodium Level 142 mmol/L (136-145) Potassium Level 3.2 mmol/L (3.5-5.1) Chloride Level 108 mmol/L (98-107) Carbon Dioxide Level 25 mmol/L (21-32) Anion Gap 9 (6-14) Blood Urea Nitrogen 18 mg/dL (8-26) Creatinine 1.5 mg/dL (0.7-1.3) Estimated GFR (Cockcroft-Gault) 47.4 BUN/Creatinine Ratio 12 (6-20) Glucose Level 121 mg/dL (70-99) Calcium Level 7.8 mg/dL (8.5-10.1) Total Bilirubin 0.4 mg/dL (0.2-1.0) Aspartate Amino Transf (AST/SGOT) 13 U/L (15-37) Alanine Aminotransferase (ALT/SGPT) 16 U/L (16-63) Alkaline Phosphatase 116 U/L (46-116) Total Protein 5.0 g/dL (6.4-8.2) Albumin 1.6 g/dL (3.4-5.0) Albumin/Globulin Ratio 0.5 (1.0-1.7) Test 02/16/20 07:10 Glucose (Fingerstick) 120 mg/dL (70-99) Micro GRAM STAIN Final Final GRAM POSITIVE COCCI:FEW ANAEROBIC-AEROBIC CULTURE Preliminary Preliminary MODERATE GRAM POSITIVE COCCI on 02/14/20 at 1040 FINAL ID= [STAPHYLOCOCCUS AUREUS] STAPHYLOCOCCUS AUREUS ANTIMICROBIAL SUSCEPTIBILITY Preliminary Comment POS SANJUANITA TYPE 38 STAPHYLOCOCCUS AUREUS ANTIBIOTIC RESULT INTERPRETATION AZITHROMYCIN <=2 S CLINDAMYCIN 0.5 S CEFOXITIN SCREEN <=4 NEG CIPROFLOXACIN >2 R CEFTAROLINE <=0.5 S DAPTOMYCIN <=0.5 S ERYTHROMYCIN 0.5 S GENTAMICIN <=4 S LINEZOLID 2 S LEVOFLOXACIN 4 I OXACILLIN <=0.25 S PENICILLIN <=0.03 Renard RIFAMPIN <=1 S TRIMETHOPRIM/SULFAMETHOXAZOLE <=0.5/9.5 S TETRACYCLINE <=4 S VANCOMYCIN 1 S 02/12/20 Blood Culture - Preliminary, Resulted NO GROWTH AFTER 3 DAYS Objective Assessment Left gluteal abscess, status post I and D, 02/13/2020. + MSSA Postop hypotension, status post IV fluid infusion.resolved Leukocytosis. Lactic acidosis. Acute kidney injury. History of right nephrectomy for renal cell carcinoma. Hyponatremia. Diabetes mellitus. Arrhythmia; NSVT . Echo with preserved LV systolic function. Plan Plan of Care Continue Zosyn for now DC daptomycin PICC care Anticipate slow response due to close proximity with anal canal and fecal soilage Wound /VAC care as directed Probiotics BC neg to date Supportive care. D/w nursing Attending Co-Sign The patient was seen and interviewed as well as examined at the bedside. The chart was reviewed. The case was discussed. Agree with the plan of care. WICHO MERAZ APRN February 16, 2020 09:25 GABY SANTANA MD February 16, 2020 11:46
[2020-02-16 11:40] VITALS: BP 134/82
[2020-02-16 15:16] VITALS: BP 126/72
[2020-02-16 19:00] VITALS: BP 115/86
--- NOTE | 2020-02-16 19:01 | PDOC ---
PROGRESS NOTES Chief Complaint Chief Complaint Left gluteal abscess; s/p I and D Leukocytosis secondary to the above Lactic acidosis secondary to above mentioned infection History of diabetes type 2 insulin requiring Arrhythmia; NSVT vs aberrant AFIB H/o renal CA s/p nephrectomy Acute renal failure secondary to vasomotor etiology most likely S/P mechanical fall secondary to slipping Plan: Follow cultures Continue broad spectrum antibiotics Wound VAC placement today follow recommendations from art sales consultant History of Present Illness History of Present Illness Neurologically intact no new complaints pain seems to be well controlled no fever or chills reported overnight no acute events reported overnight. Vitals Vitals Vital Signs Date Time Temp Pulse Resp B/P (MAP) Pulse Ox O2 Delivery O2 Flow Rate FiO2 02/16/20 18:13 20 95 Room Air 02/16/20 15:16 97.4 68 126/72 (90) 97.4 02/16/20 05:50 3.0 Physical Exam Physical Exam GENERAL: Lying on left side position, alert, appears relaxed HEENT: Oral cavity clear, no thrush NECK: Supple LUNGS: Clear bilaterally. HEART: S1, S2 regular. ABDOMEN: Soft. Large left gluteal wound wound vac in place, no area redness or induration EXTREMITIES: No edema. SKIN: without rash. NEUROLOGIC: Alert and oriented x 3, grossly nonfocal. PSYCHIATRIC: Cooperative, appropriate mood and affect RUE-PICC (02/15) without signs of complications PIV General: Alert, Oriented X3, Cooperative, mild distress Heart: Regular rate, Normal S1, Normal S2 Lungs: Clear Abdomen: Soft, No tenderness Extremities: No edema, Normal pulses Skin: Other (Wounds dressed) Labs LABS Laboratory Tests Test 02/15/20 20:46 02/16/20 04:30 02/16/20 07:10 02/16/20 11:14 Glucose (Fingerstick) 85 mg/dL (70-99) 120 mg/dL (70-99) 131 mg/dL (70-99) White Blood Count 9.2 x10^3/uL (4.0-11.0) Red Blood Count 4.16 x10^6/uL (4.30-5.70) Hemoglobin 12.2 g/dL (13.0-17.5) Hematocrit 37.5 % (39.0-53.0) Mean Corpuscular Volume 90 fL (79-100) Mean Corpuscular Hemoglobin 29 pg (25-35) Mean Corpuscular Hemoglobin Concent 33 g/dL (31-37) Red Cell Distribution Width 14.2 % (11.5-14.5) Platelet Count 291 x10^3/uL (140-400) Neutrophils (%) (Auto) 66 % (31-73) Lymphocytes (%) (Auto) 19 % (24-48) Monocytes (%) (Auto) 12 % (0-9) Eosinophils (%) (Auto) 3 % (0-3) Basophils (%) (Auto) 1 % (0-3) Neutrophils # (Auto) 6.1 x10^3/uL (1.8-7.7) Lymphocytes # (Auto) 1.7 x10^3/uL (1.0-4.8) Monocytes # (Auto) 1.1 x10^3/uL (0.0-1.1) Eosinophils # (Auto) 0.3 x10^3/uL (0.0-0.7) Basophils # (Auto) 0.0 x10^3/uL (0.0-0.2) Sodium Level 142 mmol/L (136-145) Potassium Level 3.2 mmol/L (3.5-5.1) Chloride Level 108 mmol/L (98-107) Carbon Dioxide Level 25 mmol/L (21-32) Anion Gap 9 (6-14) Blood Urea Nitrogen 18 mg/dL (8-26) Creatinine 1.5 mg/dL (0.7-1.3) Estimated GFR (Cockcroft-Gault) 47.4 BUN/Creatinine Ratio 12 (6-20) Glucose Level 121 mg/dL (70-99) Calcium Level 7.8 mg/dL (8.5-10.1) Total Bilirubin 0.4 mg/dL (0.2-1.0) Aspartate Amino Transf (AST/SGOT) 13 U/L (15-37) Alanine Aminotransferase (ALT/SGPT) 16 U/L (16-63) Alkaline Phosphatase 116 U/L (46-116) Total Protein 5.0 g/dL (6.4-8.2) Albumin 1.6 g/dL (3.4-5.0) Albumin/Globulin Ratio 0.5 (1.0-1.7) Test 02/16/20 16:22 Glucose (Fingerstick) 85 mg/dL (70-99) Assessment and Plan Assessmemt and Plan Problems Medical Problems: (1) Gluteal abscess Status: Acute (2) Severe sepsis Status: Acute Comment Review of Relevant I have reviewed the following items antonio (where applicable) has been applied. Labs Laboratory Tests Test 02/14/20 19:21 02/14/20 23:38 02/15/20 07:34 02/15/20 11:15 Glucose (Fingerstick) 420 mg/dL (70-99) 347 mg/dL (70-99) 328 mg/dL (70-99) 184 mg/dL (70-99) Test 02/15/20 16:41 02/15/20 20:46 02/16/20 04:30 02/16/20 07:10 Glucose (Fingerstick) 112 mg/dL (70-99) 85 mg/dL (70-99) 120 mg/dL (70-99) White Blood Count 9.2 x10^3/uL (4.0-11.0) Red Blood Count 4.16 x10^6/uL (4.30-5.70) Hemoglobin 12.2 g/dL (13.0-17.5) Hematocrit 37.5 % (39.0-53.0) Mean Corpuscular Volume 90 fL (79-100) Mean Corpuscular Hemoglobin 29 pg (25-35) Mean Corpuscular Hemoglobin Concent 33 g/dL (31-37) Red Cell Distribution Width 14.2 % (11.5-14.5) Platelet Count 291 x10^3/uL (140-400) Neutrophils (%) (Auto) 66 % (31-73) Lymphocytes (%) (Auto) 19 % (24-48) Monocytes (%) (Auto) 12 % (0-9) Eosinophils (%) (Auto) 3 % (0-3) Basophils (%) (Auto) 1 % (0-3) Neutrophils # (Auto) 6.1 x10^3/uL (1.8-7.7) Lymphocytes # (Auto) 1.7 x10^3/uL (1.0-4.8) Monocytes # (Auto) 1.1 x10^3/uL (0.0-1.1) Eosinophils # (Auto) 0.3 x10^3/uL (0.0-0.7) Basophils # (Auto) 0.0 x10^3/uL (0.0-0.2) Sodium Level 142 mmol/L (136-145) Potassium Level 3.2 mmol/L (3.5-5.1) Chloride Level 108 mmol/L (98-107) Carbon Dioxide Level 25 mmol/L (21-32) Anion Gap 9 (6-14) Blood Urea Nitrogen 18 mg/dL (8-26) Creatinine 1.5 mg/dL (0.7-1.3) Estimated GFR (Cockcroft-Gault) 47.4 BUN/Creatinine Ratio 12 (6-20) Glucose Level 121 mg/dL (70-99) Calcium Level 7.8 mg/dL (8.5-10.1) Total Bilirubin 0.4 mg/dL (0.2-1.0) Aspartate Amino Transf (AST/SGOT) 13 U/L (15-37) Alanine Aminotransferase (ALT/SGPT) 16 U/L (16-63) Alkaline Phosphatase 116 U/L (46-116) Total Protein 5.0 g/dL (6.4-8.2) Albumin 1.6 g/dL (3.4-5.0) Albumin/Globulin Ratio 0.5 (1.0-1.7) Test 02/16/20 11:14 02/16/20 16:22 Glucose (Fingerstick) 131 mg/dL (70-99) 85 mg/dL (70-99) Laboratory Tests Test 02/15/20 20:46 02/16/20 04:30 02/16/20 07:10 02/16/20 11:14 Glucose (Fingerstick) 85 mg/dL (70-99) 120 mg/dL (70-99) 131 mg/dL (70-99) White Blood Count 9.2 x10^3/uL (4.0-11.0) Red Blood Count 4.16 x10^6/uL (4.30-5.70) Hemoglobin 12.2 g/dL (13.0-17.5) Hematocrit 37.5 % (39.0-53.0) Mean Corpuscular Volume 90 fL (79-100) Mean Corpuscular Hemoglobin 29 pg (25-35) Mean Corpuscular Hemoglobin Concent 33 g/dL (31-37) Red Cell Distribution Width 14.2 % (11.5-14.5) Platelet Count 291 x10^3/uL (140-400) Neutrophils (%) (Auto) 66 % (31-73) Lymphocytes (%) (Auto) 19 % (24-48) Monocytes (%) (Auto) 12 % (0-9) Eosinophils (%) (Auto) 3 % (0-3) Basophils (%) (Auto) 1 % (0-3) Neutrophils # (Auto) 6.1 x10^3/uL (1.8-7.7) Lymphocytes # (Auto) 1.7 x10^3/uL (1.0-4.8) Monocytes # (Auto) 1.1 x10^3/uL (0.0-1.1) Eosinophils # (Auto) 0.3 x10^3/uL (0.0-0.7) Basophils # (Auto) 0.0 x10^3/uL (0.0-0.2) Sodium Level 142 mmol/L (136-145) Potassium Level 3.2 mmol/L (3.5-5.1) Chloride Level 108 mmol/L (98-107) Carbon Dioxide Level 25 mmol/L (21-32) Anion Gap 9 (6-14) Blood Urea Nitrogen 18 mg/dL (8-26) Creatinine 1.5 mg/dL (0.7-1.3) Estimated GFR (Cockcroft-Gault) 47.4 BUN/Creatinine Ratio 12 (6-20) Glucose Level 121 mg/dL (70-99) Calcium Level 7.8 mg/dL (8.5-10.1) Total Bilirubin 0.4 mg/dL (0.2-1.0) Aspartate Amino Transf (AST/SGOT) 13 U/L (15-37) Alanine Aminotransferase (ALT/SGPT) 16 U/L (16-63) Alkaline Phosphatase 116 U/L (46-116) Total Protein 5.0 g/dL (6.4-8.2) Albumin 1.6 g/dL (3.4-5.0) Albumin/Globulin Ratio 0.5 (1.0-1.7) Test 02/16/20 16:22 Glucose (Fingerstick) 85 mg/dL (70-99) Microbiology 02/13/20 Gram Stain - Final, Resulted 02/13/20 Aerobic and Anaerobic Culture - Preliminary, Resulted 02/13/20 Antimicrobic Susceptibility - Preliminary, Resulted 02/12/20 Blood Culture - Preliminary, Resulted NO GROWTH AFTER 4 DAYS Medications Current Medications Morphine Sulfate (Morphine Sulfate) 4 mg PRN Q15MIN PRN IV/SQ PAIN GREATER THAN 3/10 Last administered on 02/12/20at 12:31; Start 02/12/20 at 12:00; Stop 02/12/20 at 17:37; Status DC Sodium Chloride 1,000 ml @ 1,000 mls/hr Q1H IV Last administered on 02/12/20at 12:31; Start 02/12/20 at 11:58; Stop 02/12/20 at 12:57; Status DC Vancomycin HCl 2 gm/Sodium Chloride 500 ml @ 250 mls/hr 1X ONCE IV ; Start 02/12/20 at 13:00; Stop 02/12/20 at 14:59; Status UNV Piperacillin Sod/ Tazobactam Sod 4.5 gm/Sodium Chloride 100 ml @ 200 mls/hr 1X ONCE IV Last administered on 02/12/20at 13:54; Start 02/12/20 at 13:00; Stop 02/12/20 at 13:29; Status DC Vancomycin HCl 1.25 gm/Sodium Chloride 250 ml @ 166.667 mls/hr 1X ONCE IV Last administered on 02/12/20at 14:33; Start 02/12/20 at 13:15; Stop 02/12/20 at 14:44; Status DC Iohexol (Omnipaque 300 Mg/ml) 60 ml 1X ONCE IV Last administered on 02/12/20at 13:09; Start 02/12/20 at 13:15; Stop 02/12/20 at 13:16; Status DC Sodium Chloride 1,000 ml @ 1,000 mls/hr 1X ONCE IV Last administered on 02/12/20at 14:08; Start 02/12/20 at 14:00; Stop 02/12/20 at 14:59; Status DC Sodium Chloride 500 ml @ 500 mls/hr 1X ONCE IV Last administered on 02/12/20at 14:09; Start 02/12/20 at 14:00; Stop 02/12/20 at 14:59; Status DC Ondansetron HCl (Zofran) 4 mg PRN Q8HRS PRN IV NAUSEA/VOMITING; Start 02/12/20 at 15:15; Stop 02/13/20 at 15:14; Status DC Morphine Sulfate (Morphine Sulfate) 4 mg PRN Q2HR PRN IV PAIN Last administered on 02/13/20 01:36; Start 02/12/20 at 15:15; Stop 02/13/20 at 15:14; Status DC Insulin Human Regular (HumuLIN R VIAL) 8 unit 1X ONCE IV Last administered on 02/12/20at 16:02; Start 02/12/20 at 15:45; Stop 02/12/20 at 15:46; Status DC Sodium Chloride 1,000 ml @ 100 mls/hr Q10H IV Last administered on 02/16/20at 01:30; Start 02/12/20 at 17:30 Piperacillin Sod/ Tazobactam Sod 3.375 gm/Sodium Chloride 50 ml @ 100 mls/hr Q6HRS IV Last administered on 02/16/20at 18:08; Start 02/12/20 at 18:00 Oxycodone/ Acetaminophen (Percocet 5/325) 1 tab PRN Q4HRS PRN PO PAIN Last administered on 02/16/20 18:13; Start 02/12/20 at 17:45 Insulin Human Lispro (HumaLOG) 8 units TIDAC SQ Last administered on 02/13/20at 18:13; Start 02/13/20 at 07:30; Stop 02/14/20 at 08:55; Status DC Insulin Glargine (Lantus Syringe) 25 unit QHS SQ Last administered on 02/13/20at 21:23; Start 02/12/20 at 21:00; Stop 02/14/20 at 08:07; Status DC Glycopyrrolate (Robinul) 1 mg STK-MED ONCE .ROUTE ; Start 02/13/20 at 08:36; Stop 02/13/20 at 08:36; Status DC Sevoflurane (Ultane) 60 ml STK-MED ONCE IH ; Start 02/13/20 at 08:36; Stop 02/13/20 at 08:36; Status DC Rocuronium [place] (Zemuron) 50 mg STK-MED ONCE .ROUTE ; Start 02/13/20 at 08:36; Stop 02/13/20 at 08:36; Status DC Fentanyl Citrate (Fentanyl 2ml Vial) 100 mcg STK-MED ONCE .ROUTE ; Start 02/13/20 at 08:36; Stop 02/13/20 at 08:36; Status DC Neostigmine [place] (Neostigmine Methylsulfate) 5 mg STK-MED ONCE .ROUTE ; Start 02/13/20 at 08:36; Stop 02/13/20 at 08:36; Status DC Midazolam HCl (Versed) 2 mg STK-MED ONCE .ROUTE ; Start 02/13/20 at 08:36; Stop 02/13/20 at 08:37; Status DC Succinylcholine Chloride (Anectine) 200 mg STK-MED ONCE .ROUTE ; Start 02/13/20 at 08:37; Stop 02/13/20 at 08:38; Status DC Bupivacaine HCl/ Epinephrine Bitart (Sensorcain-Epi 0.5%-1:033134 Mpf) 30 ml STK-MED ONCE .ROUTE ; Start 02/13/20 at 08:54; Stop 02/13/20 at 08:54; Status DC Ondansetron HCl (Zofran) 4 mg PRN Q6HRS PRN IV NAUSEA/VOMITING; Start 02/13/20 at 09:15; Stop 02/14/20 at 09:14; Status DC Fentanyl Citrate (Fentanyl 2ml Vial) 25 mcg PRN Q5MIN PRN IV MILD PAIN 1-3; Start 02/13/20 at 09:15; Stop 02/14/20 at 09:14; Status DC Fentanyl Citrate (Fentanyl 2ml Vial) 50 mcg PRN Q5MIN PRN IV MODERATE TO SEVERE PAIN; Start 02/13/20 at 09:15; Stop 02/14/20 at 09:14; Status DC Morphine Sulfate (Morphine Sulfate) 1 mg PRN Q10MIN PRN IV SEVERE PAIN 7-10; Start 02/13/20 at 09:15; Stop 02/14/20 at 09:14; Status DC Ringer's Solution 1,000 ml @ 30 mls/hr Q24H IV Last administered on 02/13/20at 09:01; Start 02/13/20 at 09:01; Stop 02/13/20 at 21:00; Status DC Lidocaine HCl (Xylocaine-Mpf 1% 2ml Vial) 2 ml PRN 1X PRN ID PRIOR TO IV START; Start 02/13/20 at 09:15; Stop 02/14/20 at 09:14; Status DC Hydromorphone HCl (Dilaudid) 0.5 mg PRN Q10MIN PRN IV SEV PAIN, Second choice; Start 02/13/20 at 09:15; Stop 02/14/20 at 09:14; Status DC Prochlorperazine Edisylate (Compazine) 5 mg PACU PRN PRN IV NAUSEA, MRX1; Start 02/13/20 at 09:15; Stop 02/14/20 at 09:14; Status DC Phenylephrine HCl (PHENYLEPHRINE in 0.9% NACL PF) 1 mg STK-MED ONCE IV ; Start 02/13/20 at 09:27; Stop 02/13/20 at 09:28; Status DC Insulin Human Lispro (HumaLOG VIAL for OP,RR ONLY) 0-10 units PRN Q1HR PRN SQ PER PROTOCOL Last administered on 02/13/20at 10:30; Start 02/13/20 at 10:30; Stop 02/13/20 at 19:00; Status DC Daptomycin 520 mg/ Sodium Chloride 50 ml @ 100 mls/hr Q24H IV Last administered on 02/15/20at 14:35; Start 02/13/20 at 14:00; Stop 02/16/20 at 09:25; Status DC Insulin Human Lispro (HumaLOG) 8 units 1X ONCE SQ Last administered on 02/12at 21:24; Start 02/13/20 at 21:30; Stop 02/13/20 at 21:31; Status DC Insulin Glargine (Lantus Syringe) 15 unit BID SQ ; Start 02/14/20 at 09:00; Stop 02/14/20 at 08:55; Status DC Insulin Glargine (Lantus Syringe) 20 unit BID SQ Last administered on 02/16/20at 08:39; Start 02/14/20 at 09:00 Insulin Human Lispro (HumaLOG) 10 units TIDAC SQ Last administered on 02/16/20at 12:09; Start 02/14/20 at 11:30 Potassium Chloride (Klor-Con) 20 meq 1X ONCE PO Last administered on 02/14/20at 13:00; Start 02/14/20 at 11:30; Stop 02/14/20 at 11:37; Status DC Insulin Human Lispro (HumaLOG) 2 units 1X ONCE SQ Last administered on 02/14/20at 18:36; Start 02/14/20 at 17:30; Stop 02/14/20 at 17:31; Status DC Lactobacillus Rhamnosus (Culturelle) 1 cap BID PO Last administered on 02/16/20at 09:09; Start 02/14/20 at 21:00 Insulin Human Lispro (HumaLOG) 12 units ONCE ONCE SQ Last administered on at 20:14; Start 02/14/20 at 20:00; Stop 02/14/20 at 20:01; Status DC Insulin Human Lispro (HumaLOG) 0-7 UNITS TIDWMEALS SQ Last administered on 02/16/20at 12:10; Start 02/15/20 at 08:00 Dextrose (Dextrose 50%-Water Syringe) 12.5 gm PRN Q15MIN PRN IV SEE COMMENTS; Start 02/14/20 at 20:00 Active Scripts Active Percocet 5-325 Mg Tablet (Oxycodone/Acetaminophen) 1 Each Tablet 1 Tab PO PRN Q4HRS PRN 7 Days Reported Novolog (Insulin Aspart) 100 Unit/1 Ml Cartridge 8 Unit SQ TIDAC Lantus Solostar (Insulin Glargine,Hum.rec.anlog) 100 Unit/1 Ml Insuln.pen 25 Unit SQ QHS Vitals/I & O Vital Sign - Last 24 Hours 02/15/20 02/15/20 02/15/20 02/15/20 20:00 20:57 21:48 21:57 B/P (MAP) 105/52 (69) Pulse Ox 96 97 O2 Delivery Room Air Room Air Room Air O2 Flow Rate 3.0 3.0 02/15/20 02/16/20 02/16/20 02/16/20 23:06 03:42 05:50 07:35 Temp 97.6 98.3 98.1 97.6 98.3 98.1 Pulse 82 68 72 Resp 20 20 18 B/P (MAP) 115/56 (75) 117/64 (81) 118/65 (82) Pulse Ox 97 98 98 98 O2 Delivery Room Air Room Air Room Air Room Air O2 Flow Rate 3.0 02/16/20 02/16/20 02/16/20 02/16/20 08:00 11:40 15:16 18:13 Temp 97.6 97.4 97.6 97.4 Pulse 77 68 Resp 18 18 20 B/P (MAP) 134/82 (99) 126/72 (90) Pulse Ox 96 96 95 O2 Delivery Room Air Room Air Room Air Room Air Intake and Output 02/15/20 02/15/20 02/16/20 15:00 23:00 07:00 Intake Total 460 ml 360 ml Output Total 300 ml 251 ml 200 ml Balance 160 ml 109 ml -200 ml JD CHURCH MD February 16, 2020 19:01
[2020-02-16 23:04] VITALS: BP 155/97
[2020-02-17] MEDS: PIPERACILLIN/TAZOBACTAM 3.375 GM in IV NORMAL SALINE 50ML 50 ML IV SCH ×4 (01:20→17:58)
[2020-02-17 03:06] VITALS: BP 143/93
[2020-02-17] MEDS: oxyCODONE/APAP 5/325 1 TAB TABLET PO PRN ×2 (06:24→19:47)
[2020-02-17] MEDS: IV NORMAL SALINE 1000ML BAG 1,000 ML IV SCH ×3 (06:25→21:57)
[2020-02-17 07:00] VITALS: BP 145/90
[2020-02-17] MEDS: INSULIN LISPRO 300 UNITS/3 ML VIAL. SQ SCH ×6 (07:30→16:45)
[2020-02-17] MEDS: LACTOBACILLUS RHAMNOSUS GG 1 CAPSULE. PO SCH ×2 (08:23→21:30)
[2020-02-17] MEDS: INSULIN GLARGINE SYRINGE. SQ SCH ×2 (08:24→21:36)
--- NOTE | 2020-02-17 09:23 | PDOC ---
Infectious Disease Note Subjective Subjective Says pain level a 2, much better Denies F/C/N/V/D ROS ROS per HPI Vital Sign Vital Signs Vital Signs Date Time Temp Pulse Resp B/P (MAP) Pulse Ox O2 Delivery O2 Flow Rate FiO2 02/17/20 07:00 98.5 64 19 145/90 (108) 97 Room Air 98.5 02/16/20 20:00 3.0 Physical Exam PHYSICAL EXAM GENERAL: Lying on prone, alert in NAD HEENT: Oral cavity clear, no thrush NECK: Supple LUNGS: Clear bilaterally. HEART: S1, S2 regular. ABDOMEN: Left gluteal wound wound vac in place, no area redness or induration EXTREMITIES: No edema. SKIN: without rash. NEUROLOGIC: Alert and oriented x 3, grossly nonfocal. PSYCHIATRIC: Cooperative, appropriate mood and affect RUE-PICC (02/15) without signs of complications Labs Lab Laboratory Tests Test 02/16/20 11:14 02/16/20 16:22 02/16/20 20:32 02/17/20 07:01 Glucose (Fingerstick) 131 mg/dL (70-99) 85 mg/dL (70-99) 242 mg/dL (70-99) 180 mg/dL (70-99) Micro GRAM STAIN Final Final GRAM POSITIVE COCCI:FEW ANAEROBIC-AEROBIC CULTURE Preliminary Preliminary MODERATE GRAM POSITIVE COCCI on 02/14/20 at 1040 FINAL ID= [STAPHYLOCOCCUS AUREUS] STAPHYLOCOCCUS AUREUS ANTIMICROBIAL SUSCEPTIBILITY Preliminary Comment POS SANJUANITA TYPE 38 STAPHYLOCOCCUS AUREUS ANTIBIOTIC RESULT INTERPRETATION AZITHROMYCIN <=2 S CLINDAMYCIN 0.5 S CEFOXITIN SCREEN <=4 NEG CIPROFLOXACIN >2 R CEFTAROLINE <=0.5 S DAPTOMYCIN <=0.5 S ERYTHROMYCIN 0.5 S GENTAMICIN <=4 S LINEZOLID 2 S LEVOFLOXACIN 4 I OXACILLIN <=0.25 S PENICILLIN <=0.03 Renard RIFAMPIN <=1 S TRIMETHOPRIM/SULFAMETHOXAZOLE <=0.5/9.5 S TETRACYCLINE <=4 S VANCOMYCIN 1 S 02/12/20 Blood Culture - Preliminary, Resulted NO GROWTH AFTER 4 DAYS Objective Assessment Left gluteal abscess, status post I and D, 02/13/2020. + MSSA Postop hypotension, status post IV fluid infusion.resolved Leukocytosis. Lactic acidosis. Acute kidney injury. History of right nephrectomy for renal cell carcinoma. Hyponatremia. Diabetes mellitus. Arrhythmia; NSVT . Echo with preserved LV systolic function. Plan Plan of Care Continue Zosyn for now DC daptomycin PICC care Anticipate slow response due to close proximity with anal canal and fecal soilage Wound /VAC care as directed Probiotics BC neg to date Supportive care. Attending Co-Sign The patient was seen and examined at the bedside. The chart was reviewed. The case was discussed with HATCHERY MAN. Agree with the plan of care. WICHO MERAZ APRN February 17, 2020 09:23 GABY SANTANA MD February 17, 2020 12:31
[2020-02-17] MEDS ORDERED: IV RINGERS,LACTATED 1000ML 1,000 ML IV SCH (10:15)
[2020-02-17 10:30] LABS: BASO % 0 % (0-3); EOS # 0.2 x10^3/uL (0.0-0.7); EOS % 3 % (0-3); HEMATOCRIT 35.4 % (39.0-53.0); HEMOGLOBIN 12.3 g/dL (13.0-17.5); LYMPH # 1.2 x10^3/uL (1.0-4.8); LYMPH % 16 % (24-48); MEAN CORPUSCULAR HEMOGLOBIN 31 pg (25-35); MEAN CORPUSCULAR HGB CONC 35 g/dL (31-37); MEAN CORPUSCULAR VOLUME 89 fL (79-100); MONO # 0.7 x10^3/uL (0.0-1.1); MONO % 9 % (0-9); NEUT # 5.4 x10^3/uL (1.8-7.7); NEUT % 72 % (31-73); PLATELET COUNT 260 x10^3/uL (140-400); RED BLOOD COUNT 3.99 x10^6/uL (4.30-5.70); RED CELL DISTRIBUTION WIDTH 13.8 % (11.5-14.5); WHITE BLOOD COUNT 7.5 x10^3/uL (4.0-11.0)
[2020-02-17 10:35] LABS: CALCIUM 7.4 mg/dL (8.5-10.1); CREATININE 1.3 mg/dL (0.7-1.3); GFR 55.9
[2020-02-17 10:38] LABS: POTASSIUM 2.8 mmol/L (3.5-5.1)
[2020-02-17 10:49] VITALS: BP 142/84
[2020-02-17] MEDS: POTASSIUM CHLORIDE 20MEQ 100 ML IV SCH ×4 (11:13→14:00)
--- NOTE | 2020-02-17 11:40 | PDOC ---
PROGRESS NOTES Chief Complaint Chief Complaint Left gluteal abscess; s/p I and D Leukocytosis secondary to the above Lactic acidosis secondary to above mentioned infection History of diabetes type 2 insulin requiring Arrhythmia; NSVT vs aberrant AFIB H/o renal CA s/p nephrectomy Acute renal failure secondary to vasomotor etiology most likely S/P mechanical fall secondary to slipping Plan: Follow cultures Continue broad spectrum antibiotics Continue wound VAC care follow recommendations from solution consultant Discharge once arrangements for outpatient antibiotic therapy and wound VAC care has been arranged by case management History of Present Illness History of Present Illness No acute events reported overnight, case discussed with nursing staff patient in no acute distress no complaints during my visit Vitals Vitals Vital Signs Date Time Temp Pulse Resp B/P (MAP) Pulse Ox O2 Delivery O2 Flow Rate FiO2 02/17/20 10:49 98.2 68 19 142/84 (103) 97 Room Air 98.2 02/16/20 20:00 3.0 Physical Exam Physical Exam GENERAL: Lying on prone, alert in NAD HEENT: Oral cavity clear, no thrush NECK: Supple LUNGS: Clear bilaterally. HEART: S1, S2 regular. ABDOMEN: Left gluteal wound wound vac in place, no area redness or induration EXTREMITIES: No edema. SKIN: without rash. NEUROLOGIC: Alert and oriented x 3, grossly nonfocal. PSYCHIATRIC: Cooperative, appropriate mood and affect RUE-PICC (02/15) without signs of complications General: Alert, Oriented X3, Cooperative, mild distress Heart: Regular rate, Normal S1, Normal S2 Lungs: Clear Abdomen: Soft, No tenderness Extremities: No edema, Normal pulses Skin: Other (Wounds dressed) Labs LABS Laboratory Tests Test 02/16/20 16:22 02/16/20 20:32 02/17/20 07:01 02/17/20 10:10 Glucose (Fingerstick) 85 mg/dL (70-99) 242 mg/dL (70-99) 180 mg/dL (70-99) White Blood Count 7.5 x10^3/uL (4.0-11.0) Red Blood Count 3.99 x10^6/uL (4.30-5.70) Hemoglobin 12.3 g/dL (13.0-17.5) Hematocrit 35.4 % (39.0-53.0) Mean Corpuscular Volume 89 fL (79-100) Mean Corpuscular Hemoglobin 31 pg (25-35) Mean Corpuscular Hemoglobin Concent 35 g/dL (31-37) Red Cell Distribution Width 13.8 % (11.5-14.5) Platelet Count 260 x10^3/uL (140-400) Neutrophils (%) (Auto) 72 % (31-73) Lymphocytes (%) (Auto) 16 % (24-48) Monocytes (%) (Auto) 9 % (0-9) Eosinophils (%) (Auto) 3 % (0-3) Basophils (%) (Auto) 0 % (0-3) Neutrophils # (Auto) 5.4 x10^3/uL (1.8-7.7) Lymphocytes # (Auto) 1.2 x10^3/uL (1.0-4.8) Monocytes # (Auto) 0.7 x10^3/uL (0.0-1.1) Eosinophils # (Auto) 0.2 x10^3/uL (0.0-0.7) Basophils # (Auto) 0.0 x10^3/uL (0.0-0.2) Sodium Level 142 mmol/L (136-145) Potassium Level 2.8 mmol/L (3.5-5.1) Chloride Level 107 mmol/L (98-107) Carbon Dioxide Level 27 mmol/L (21-32) Anion Gap 8 (6-14) Blood Urea Nitrogen 11 mg/dL (8-26) Creatinine 1.3 mg/dL (0.7-1.3) Estimated GFR (Cockcroft-Gault) 55.9 Glucose Level 254 mg/dL (70-99) Calcium Level 7.4 mg/dL (8.5-10.1) Test 02/17/20 11:00 Glucose (Fingerstick) 198 mg/dL (70-99) Assessment and Plan Assessmemt and Plan Problems Medical Problems: (1) Gluteal abscess Status: Acute (2) Severe sepsis Status: Acute Comment Review of Relevant I have reviewed the following items antonio (where applicable) has been applied. Labs Laboratory Tests Test 02/15/20 16:41 02/15/20 20:46 02/16/20 04:30 02/16/20 07:10 Glucose (Fingerstick) 112 mg/dL (70-99) 85 mg/dL (70-99) 120 mg/dL (70-99) White Blood Count 9.2 x10^3/uL (4.0-11.0) Red Blood Count 4.16 x10^6/uL (4.30-5.70) Hemoglobin 12.2 g/dL (13.0-17.5) Hematocrit 37.5 % (39.0-53.0) Mean Corpuscular Volume 90 fL (79-100) Mean Corpuscular Hemoglobin 29 pg (25-35) Mean Corpuscular Hemoglobin Concent 33 g/dL (31-37) Red Cell Distribution Width 14.2 % (11.5-14.5) Platelet Count 291 x10^3/uL (140-400) Neutrophils (%) (Auto) 66 % (31-73) Lymphocytes (%) (Auto) 19 % (24-48) Monocytes (%) (Auto) 12 % (0-9) Eosinophils (%) (Auto) 3 % (0-3) Basophils (%) (Auto) 1 % (0-3) Neutrophils # (Auto) 6.1 x10^3/uL (1.8-7.7) Lymphocytes # (Auto) 1.7 x10^3/uL (1.0-4.8) Monocytes # (Auto) 1.1 x10^3/uL (0.0-1.1) Eosinophils # (Auto) 0.3 x10^3/uL (0.0-0.7) Basophils # (Auto) 0.0 x10^3/uL (0.0-0.2) Sodium Level 142 mmol/L (136-145) Potassium Level 3.2 mmol/L (3.5-5.1) Chloride Level 108 mmol/L (98-107) Carbon Dioxide Level 25 mmol/L (21-32) Anion Gap 9 (6-14) Blood Urea Nitrogen 18 mg/dL (8-26) Creatinine 1.5 mg/dL (0.7-1.3) Estimated GFR (Cockcroft-Gault) 47.4 BUN/Creatinine Ratio 12 (6-20) Glucose Level 121 mg/dL (70-99) Calcium Level 7.8 mg/dL (8.5-10.1) Total Bilirubin 0.4 mg/dL (0.2-1.0) Aspartate Amino Transf (AST/SGOT) 13 U/L (15-37) Alanine Aminotransferase (ALT/SGPT) 16 U/L (16-63) Alkaline Phosphatase 116 U/L (46-116) Total Protein 5.0 g/dL (6.4-8.2) Albumin 1.6 g/dL (3.4-5.0) Albumin/Globulin Ratio 0.5 (1.0-1.7) Test 02/16/20 11:14 02/16/20 16:22 02/16/20 20:32 02/17/20 07:01 Glucose (Fingerstick) 131 mg/dL (70-99) 85 mg/dL (70-99) 242 mg/dL (70-99) 180 mg/dL (70-99) Test 02/17/20 10:10 02/17/20 11:00 White Blood Count 7.5 x10^3/uL (4.0-11.0) Red Blood Count 3.99 x10^6/uL (4.30-5.70) Hemoglobin 12.3 g/dL (13.0-17.5) Hematocrit 35.4 % (39.0-53.0) Mean Corpuscular Volume 89 fL (79-100) Mean Corpuscular Hemoglobin 31 pg (25-35) Mean Corpuscular Hemoglobin Concent 35 g/dL (31-37) Red Cell Distribution Width 13.8 % (11.5-14.5) Platelet Count 260 x10^3/uL (140-400) Neutrophils (%) (Auto) 72 % (31-73) Lymphocytes (%) (Auto) 16 % (24-48) Monocytes (%) (Auto) 9 % (0-9) Eosinophils (%) (Auto) 3 % (0-3) Basophils (%) (Auto) 0 % (0-3) Neutrophils # (Auto) 5.4 x10^3/uL (1.8-7.7) Lymphocytes # (Auto) 1.2 x10^3/uL (1.0-4.8) Monocytes # (Auto) 0.7 x10^3/uL (0.0-1.1) Eosinophils # (Auto) 0.2 x10^3/uL (0.0-0.7) Basophils # (Auto) 0.0 x10^3/uL (0.0-0.2) Sodium Level 142 mmol/L (136-145) Potassium Level 2.8 mmol/L (3.5-5.1) Chloride Level 107 mmol/L (98-107) Carbon Dioxide Level 27 mmol/L (21-32) Anion Gap 8 (6-14) Blood Urea Nitrogen 11 mg/dL (8-26) Creatinine 1.3 mg/dL (0.7-1.3) Estimated GFR (Cockcroft-Gault) 55.9 Glucose Level 254 mg/dL (70-99) Calcium Level 7.4 mg/dL (8.5-10.1) Glucose (Fingerstick) 198 mg/dL (70-99) Laboratory Tests Test 02/16/20 16:22 02/16/20 20:32 02/17/20 07:01 02/17/20 10:10 Glucose (Fingerstick) 85 mg/dL (70-99) 242 mg/dL (70-99) 180 mg/dL (70-99) White Blood Count 7.5 x10^3/uL (4.0-11.0) Red Blood Count 3.99 x10^6/uL (4.30-5.70) Hemoglobin 12.3 g/dL (13.0-17.5) Hematocrit 35.4 % (39.0-53.0) Mean Corpuscular Volume 89 fL (79-100) Mean Corpuscular Hemoglobin 31 pg (25-35) Mean Corpuscular Hemoglobin Concent 35 g/dL (31-37) Red Cell Distribution Width 13.8 % (11.5-14.5) Platelet Count 260 x10^3/uL (140-400) Neutrophils (%) (Auto) 72 % (31-73) Lymphocytes (%) (Auto) 16 % (24-48) Monocytes (%) (Auto) 9 % (0-9) Eosinophils (%) (Auto) 3 % (0-3) Basophils (%) (Auto) 0 % (0-3) Neutrophils # (Auto) 5.4 x10^3/uL (1.8-7.7) Lymphocytes # (Auto) 1.2 x10^3/uL (1.0-4.8) Monocytes # (Auto) 0.7 x10^3/uL (0.0-1.1) Eosinophils # (Auto) 0.2 x10^3/uL (0.0-0.7) Basophils # (Auto) 0.0 x10^3/uL (0.0-0.2) Sodium Level 142 mmol/L (136-145) Potassium Level 2.8 mmol/L (3.5-5.1) Chloride Level 107 mmol/L (98-107) Carbon Dioxide Level 27 mmol/L (21-32) Anion Gap 8 (6-14) Blood Urea Nitrogen 11 mg/dL (8-26) Creatinine 1.3 mg/dL (0.7-1.3) Estimated GFR (Cockcroft-Gault) 55.9 Glucose Level 254 mg/dL (70-99) Calcium Level 7.4 mg/dL (8.5-10.1) Test 02/17/20 11:00 Glucose (Fingerstick) 198 mg/dL (70-99) Microbiology 02/13/20 Gram Stain - Final, Resulted 02/13/20 Aerobic and Anaerobic Culture - Preliminary, Resulted 02/13/20 Antimicrobic Susceptibility - Preliminary, Resulted 02/12/20 Blood Culture - Preliminary, Resulted NO GROWTH AFTER 4 DAYS Medications Current Medications Morphine Sulfate (Morphine Sulfate) 4 mg PRN Q15MIN PRN IV/SQ PAIN GREATER THAN 3/10 Last administered on 02/12/20at 12:31; Start 02/12/20 at 12:00; Stop 02/12/20 at 17:37; Status DC Sodium Chloride 1,000 ml @ 1,000 mls/hr Q1H IV Last administered on 02/12/20at 12:31; Start 02/12/20 at 11:58; Stop 02/12/20 at 12:57; Status DC Vancomycin HCl 2 gm/Sodium Chloride 500 ml @ 250 mls/hr 1X ONCE IV ; Start 02/12/20 at 13:00; Stop 02/12/20 at 14:59; Status UNV Piperacillin Sod/ Tazobactam Sod 4.5 gm/Sodium Chloride 100 ml @ 200 mls/hr 1X ONCE IV Last administered on 02/12/20at 13:54; Start 02/12/20 at 13:00; Stop 02/12/20 at 13:29; Status DC Vancomycin HCl 1.25 gm/Sodium Chloride 250 ml @ 166.667 mls/hr 1X ONCE IV Last administered on 02/12/20at 14:33; Start 02/12/20 at 13:15; Stop 02/12/20 at 14:44; Status DC Iohexol (Omnipaque 300 Mg/ml) 60 ml 1X ONCE IV Last administered on 02/12/20at 13:09; Start 02/12/20 at 13:15; Stop 02/12/20 at 13:16; Status DC Sodium Chloride 1,000 ml @ 1,000 mls/hr 1X ONCE IV Last administered on 02/12/20at 14:08; Start 02/12/20 at 14:00; Stop 02/12/20 at 14:59; Status DC Sodium Chloride 500 ml @ 500 mls/hr 1X ONCE IV Last administered on 02/12/20at 14:09; Start 02/12/20 at 14:00; Stop 02/12/20 at 14:59; Status DC Ondansetron HCl (Zofran) 4 mg PRN Q8HRS PRN IV NAUSEA/VOMITING; Start 02/12/20 at 15:15; Stop 02/13/20 at 15:14; Status DC Morphine Sulfate (Morphine Sulfate) 4 mg PRN Q2HR PRN IV PAIN Last administered on 02/13/20at 01:36; Start 02/12/20 at 15:15; Stop 02/13/20 at 15:14; Status DC Insulin Human Regular (HumuLIN R VIAL) 8 unit 1X ONCE IV Last administered on 02/12/20at 16:02; Start 02/12/20 at 15:45; Stop 02/12/20 at 15:46; Status DC Sodium Chloride 1,000 ml @ 100 mls/hr Q10H IV Last administered on 02/17/20at 06:25; Start 02/12/20 at 17:30; Stop 02/17/20 at 10:11; Status DC Piperacillin Sod/ Tazobactam Sod 3.375 gm/Sodium Chloride 50 ml @ 100 mls/hr Q6HRS IV Last administered on 02/17/20at 06:14; Start 02/12/20 at 18:00 Oxycodone/ Acetaminophen (Percocet 5/325) 1 tab PRN Q4HRS PRN PO PAIN Last administered on 02/17/20at 06:24; Start 02/12/20 at 17:45 Insulin Human Lispro (HumaLOG) 8 units TIDAC SQ Last administered on 02/13/20at 18:13; Start 02/13/20 at 07:30; Stop 02/14/20 at 08:55; Status DC Insulin Glargine (Lantus Syringe) 25 unit QHS SQ Last administered on 02/13/20at 21:23; Start 02/12/20 at 21:00; Stop 02/14/20 at 08:07; Status DC Glycopyrrolate (Robinul) 1 mg STK-MED ONCE .ROUTE ; Start 02/13/20 at 08:36; Stop 02/13/20 at 08:36; Status DC Sevoflurane (Ultane) 60 ml STK-MED ONCE IH ; Start 02/13/20 at 08:36; Stop 02/13/20 at 08:36; Status DC Rocuronium [place] (Zemuron) 50 mg STK-MED ONCE .ROUTE ; Start 02/13/20 at 08:36; Stop 02/13/20 at 08:36; Status DC Fentanyl Citrate (Fentanyl 2ml Vial) 100 mcg STK-MED ONCE .ROUTE ; Start 02/13/20 at 08:36; Stop 02/13/20 at 08:36; Status DC Neostigmine [place] (Neostigmine Methylsulfate) 5 mg STK-MED ONCE .ROUTE ; Start 02/13/20 at 08:36; Stop 02/13/20 at 08:36; Status DC Midazolam HCl (Versed) 2 mg STK-MED ONCE .ROUTE ; Start 02/13/20 at 08:36; Stop 02/13/20 at 08:37; Status DC Succinylcholine Chloride (Anectine) 200 mg STK-MED ONCE .ROUTE ; Start 02/13/20 at 08:37; Stop 02/13/20 at 08:38; Status DC Bupivacaine HCl/ Epinephrine Bitart (Sensorcain-Epi 0.5%-1:433697 Mpf) 30 ml STK-MED ONCE .ROUTE ; Start 02/13/20 at 08:54; Stop 02/13/20 at 08:54; Status DC Ondansetron HCl (Zofran) 4 mg PRN Q6HRS PRN IV NAUSEA/VOMITING; Start 02/13/20 at 09:15; Stop 02/14/20 at 09:14; Status DC Fentanyl Citrate (Fentanyl 2ml Vial) 25 mcg PRN Q5MIN PRN IV MILD PAIN 1-3; Start 02/13/20 at 09:15; Stop 02/14/20 at 09:14; Status DC Fentanyl Citrate (Fentanyl 2ml Vial) 50 mcg PRN Q5MIN PRN IV MODERATE TO SEVERE PAIN; Start 02/13/20 at 09:15; Stop 02/14/20 at 09:14; Status DC Morphine Sulfate (Morphine Sulfate) 1 mg PRN Q10MIN PRN IV SEVERE PAIN 7-10; Start 02/13/20 at 09:15; Stop 02/14/20 at 09:14; Status DC Ringer's Solution 1,000 ml @ 30 mls/hr Q24H IV Last administered on 02/13/20at 09:01; Start 02/13/20 at 09:01; Stop 02/13/20 at 21:00; Status DC Lidocaine HCl (Xylocaine-Mpf 1% 2ml Vial) 2 ml PRN 1X PRN ID PRIOR TO IV START; Start 02/13/20 at 09:15; Stop 02/14/20 at 09:14; Status DC Hydromorphone HCl (Dilaudid) 0.5 mg PRN Q10MIN PRN IV SEV PAIN, Second choice; Start 02/13/20 at 09:15; Stop 02/14/20 at 09:14; Status DC Prochlorperazine Edisylate (Compazine) 5 mg PACU PRN PRN IV NAUSEA, MRX1; Start 02/13/20 at 09:15; Stop 02/14/20 at 09:14; Status DC Phenylephrine HCl (PHENYLEPHRINE in 0.9% NACL PF) 1 mg STK-MED ONCE IV ; Start 02/13/20 at 09:27; Stop 02/13/20 at 09:28; Status DC Insulin Human Lispro (HumaLOG VIAL for OP,RR ONLY) 0-10 units PRN Q1HR PRN SQ PER PROTOCOL Last administered on 02/13/20at 10:30; Start 02/13/20 at 10:30; Stop 02/13/20 at 19:00; Status DC Daptomycin 520 mg/ Sodium Chloride 50 ml @ 100 mls/hr Q24H IV Last administered on 02/15/20at 14:35; Start 02/13/20 at 14:00; Stop 02/16/20 at 09:25; Status DC Insulin Human Lispro (HumaLOG) 8 units 1X ONCE SQ Last administered on 02/13/20at 21:24; Start 02/13/20 at 21:30; Stop 02/13/20 at 21:31; Status DC Insulin Glargine (Lantus Syringe) 15 unit BID SQ ; Start 02/14/20 at 09:00; Stop 02/14/20 at 08:55; Status DC Insulin Glargine (Lantus Syringe) 20 unit BID SQ Last administered on 02/17/20at 08:24; Start 02/14/20 at 09:00 Insulin Human Lispro (HumaLOG) 10 units TIDAC SQ Last administered on 02/17/20at 11:19; Start 02/14/20 at 11:30 Potassium Chloride (Klor-Con) 20 meq 1X ONCE PO Last administered on 02/14/20at 13:00; Start 02/14/20 at 11:30; Stop 02/14/20 at 11:37; Status DC Insulin Human Lispro (HumaLOG) 2 units 1X ONCE SQ Last administered on 02/14/20at 18:36; Start 02/14/20 at 17:30; Stop 02/14/20 at 17:31; Status DC Lactobacillus Rhamnosus (Culturelle) 1 cap BID PO Last administered on 02/17/20at 08:23; Start 02/14/20 at 21:00 Insulin Human Lispro (HumaLOG) 12 units ONCE ONCE SQ Last administered on 02/14/20at 20:14; Start 02/14/20 at 20:00; Stop 02/14/20 at 20:01; Status DC Insulin Human Lispro (HumaLOG) 0-7 UNITS TIDWMEALS SQ Last administered on 02/17/20at 11:19; Start 02/15/20 at 08:00 Dextrose (Dextrose 50%-Water Syringe) 12.5 gm PRN Q15MIN PRN IV SEE COMMENTS; Start 02/14/20 at 20:00 Ringer's Solution 1,000 ml @ 125 mls/hr Q8H IV ; Start 02/17/20 at 10:15; Stop 02/17/20 at 10:16; Status DC Sodium Chloride 1,000 ml @ 100 mls/hr Q10H IV ; Start 02/17/20 at 10:15 Potassium Chloride/Water 100 ml @ 100 mls/hr Q1H IV Last administered on 02/17/20at 11:13; Start 02/17/20 at 11:00; Stop 02/17/20 at 14:59 Active Scripts Active Percocet 5-325 Mg Tablet (Oxycodone/Acetaminophen) 1 Each Tablet 1 Tab PO PRN Q4HRS PRN 7 Days Reported Novolog (Insulin Aspart) 100 Unit/1 Ml Cartridge 8 Unit SQ TIDAC Lantus Solostar (Insulin Glargine,Hum.rec.anlog) 100 Unit/1 Ml Insuln.pen 25 Unit SQ QHS Vitals/I & O Vital Sign - Last 24 Hours 02/16/20 02/16/20 02/16/20 02/16/20 11:40 15:16 18:13 19:00 Temp 97.6 97.4 98.2 97.6 97.4 98.2 Pulse 77 68 85 Resp 18 18 20 20 B/P (MAP) 134/82 (99) 126/72 (90) 115/86 (96) Pulse Ox 96 96 95 97 O2 Delivery Room Air Room Air Room Air Room Air 02/16/20 02/16/20 02/16/20 02/17/20 19:13 20:00 23:04 03:06 Temp 98.5 98.7 98.5 98.7 Pulse 77 72 Resp 20 20 B/P (MAP) 155/97 (116) 143/93 (110) Pulse Ox 97 97 O2 Delivery Room Air Room Air Room Air Room Air O2 Flow Rate 3.0 02/17/20 02/17/20 02/17/20 06:24 07:00 10:49 Temp 98.5 98.2 98.5 98.2 Pulse 64 68 Resp 19 19 B/P (MAP) 145/90 (108) 142/84 (103) Pulse Ox 97 97 O2 Delivery Room Air Room Air Room Air Intake and Output 02/16/20 02/16/20 02/17/20 15:00 23:00 07:00 Intake Total 350 ml 200 ml Output Total 250 ml 2600 ml Balance 100 ml 200 ml -2600 ml JD CHURCH MD February 17, 2020 11:40
[2020-02-17 15:00] VITALS: BP 148/70
[2020-02-17 19:00] VITALS: BP 163/98
[2020-02-17 23:00] VITALS: BP 126/84
[2020-02-18] MEDS: PIPERACILLIN/TAZOBACTAM 3.375 GM in IV NORMAL SALINE 50ML 50 ML IV SCH ×4 (00:25→19:23)
[2020-02-18 03:00] VITALS: BP 119/70
[2020-02-18 07:30] VITALS: BP 156/101
[2020-02-18] MEDS: LACTOBACILLUS RHAMNOSUS GG 1 CAPSULE. PO SCH ×2 (08:14→21:28)
[2020-02-18] MEDS: IV NORMAL SALINE 1000ML BAG 1,000 ML IV SCH ×2 (08:14→16:51)
--- NOTE | 2020-02-18 08:25 | PDOC ---
Infectious Disease Note Subjective: Subjective Says pain level a 2, much better Denies F/C/N/V/D Vital Signs: Vital Signs Vital Signs Date Time Temp Pulse Resp B/P (MAP) Pulse Ox O2 Delivery O2 Flow Rate FiO2 02/18/20 07:30 98.6 72 18 156/101 (119) 97 Room Air 98.6 Physical Exam: PHYSICAL EXAM GENERAL: Lying on prone, alert in NAD HEENT: Oral cavity clear, no thrush NECK: Supple LUNGS: Clear bilaterally. HEART: S1, S2 regular. ABDOMEN: Left gluteal wound wound vac in place, no area redness or induration EXTREMITIES: No edema. SKIN: without rash. NEUROLOGIC: Alert and oriented x 3, grossly nonfocal. PSYCHIATRIC: Cooperative, appropriate mood and affect RUE-PICC (02/15) without signs of complications Medications: Inpatient Meds: Current Medications Medications (Trade) Dose Ordered Sig/Ty Start Time Stop Time Status Last Admin Dose Admin Bupivacaine HCl/ Epinephrine Bitart (Sensorcain-Epi 0.5%-1:199998 Mpf) 30 ml STK-MED ONCE 02/13/20 08:54 02/13/20 08:54 DC Daptomycin 520 mg/ Sodium Chloride 50 ml @ 100 mls/hr Q24H 02/13/20 14:00 02/16/20 09:25 DC 02/15/20 14:35 100 MLS/HR Dextrose (Dextrose 50%-Water Syringe) 12.5 gm PRN Q15MIN PRN 02/14/20 20:00 Fentanyl Citrate (Fentanyl 2ml Vial) 50 mcg PRN Q5MIN PRN 02/13/20 09:15 02/14/20 09:14 DC Glycopyrrolate (Robinul) 1 mg STK-MED ONCE 02/13/20 08:36 02/13/20 08:36 DC Hydromorphone HCl (Dilaudid) 0.5 mg PRN Q10MIN PRN 02/13/20 09:15 02/14/20 09:14 DC Insulin Glargine (Lantus Syringe) 20 unit BID 02/14/20 09:00 02/17/20 21:36 20 UNIT Insulin Human Lispro (HumaLOG VIAL for OP,RR ONLY) 0-10 units PRN Q1HR PRN 02/13/20 10:30 02/13/20 19:00 DC 02/13/20 10:30 8 UNIT Insulin Human Lispro (HumaLOG) 0-7 UNITS TIDWMEALS 02/15/20 08:00 02/17/20 11:19 3 UNITS Insulin Human Regular (HumuLIN R VIAL) 8 unit 1X ONCE 02/12/20 15:45 02/12/20 15:46 DC 02/12/20 16:02 5 UNIT Iohexol (Omnipaque 300 Mg/ml) 60 ml 1X ONCE 02/12/20 13:15 02/12/20 13:16 DC 02/12/20 13:09 60 ML Lactobacillus Rhamnosus (Culturelle) 1 cap BID 02/14/20 21:00 02/17/20 21:30 1 CAP Lidocaine HCl (Xylocaine-Mpf 1% 2ml Vial) 2 ml PRN 1X PRN 02/13/20 09:15 02/14/20 09:14 DC Midazolam HCl (Versed) 2 mg STK-MED ONCE 02/13/20 08:36 02/13/20 08:37 DC Morphine Sulfate (Morphine Sulfate) 1 mg PRN Q10MIN PRN 02/13/20 09:15 02/14/20 09:14 DC Neostigmine [place] (Neostigmine Methylsulfate) 5 mg STK-MED ONCE 02/13/20 08:36 02/13/20 08:36 DC Ondansetron HCl (Zofran) 4 mg PRN Q6HRS PRN 02/13/20 09:15 02/14/20 09:14 DC Oxycodone/ Acetaminophen (Percocet 5/325) 1 tab PRN Q4HRS PRN 02/12/20 17:45 02/17/20 19:47 1 TAB Phenylephrine HCl (PHENYLEPHRINE in 0.9% NACL PF) 1 mg STK-MED ONCE 02/13/20 09:27 02/13/20 09:28 DC Piperacillin Sod/ Tazobactam Sod 3.375 gm/Sodium Chloride 50 ml @ 100 mls/hr Q6HRS 02/12/20 18:00 02/18/20 05:40 100 MLS/HR Piperacillin Sod/ Tazobactam Sod 4.5 gm/Sodium Chloride 100 ml @ 200 mls/hr 1X ONCE 02/12/20 13:00 02/12/20 13:29 DC 02/12/20 13:54 200 MLS/HR Potassium Chloride/Water 100 ml @ 100 mls/hr Q1H 02/17/20 11:00 02/17/20 14:59 DC 02/17/20 14:00 100 MLS/HR Potassium Chloride (Klor-Con) 20 meq 1X ONCE 02/14/20 11:30 02/14/20 11:37 DC 02/14/20 13:00 20 MEQ Prochlorperazine Edisylate (Compazine) 5 mg PACU PRN PRN 02/13/20 09:15 02/14/20 09:14 DC Ringer's Solution 1,000 ml @ 125 mls/hr Q8H 02/17/20 10:15 02/17/20 10:16 DC Rocuronium [place] (Zemuron) 50 mg STK-MED ONCE 02/13/20 08:36 02/13/20 08:36 DC Sevoflurane (Ultane) 60 ml STK-MED ONCE 02/13/20 08:36 02/13/20 08:36 DC Sodium Chloride 1,000 ml @ 100 mls/hr Q10H 02/17/20 10:15 02/17/20 21:57 100 MLS/HR Succinylcholine Chloride (Anectine) 200 mg STK-MED ONCE 02/13/20 08:37 02/13/20 08:38 DC Vancomycin HCl 1.25 gm/Sodium Chloride 250 ml @ 166.667 mls/hr 1X ONCE 02/12/20 13:15 02/12/20 14:44 DC 02/12/20 14:33 166.667 MLS/HR Vancomycin HCl 2 gm/Sodium Chloride 500 ml @ 250 mls/hr 1X ONCE 02/12/20 13:00 02/12/20 14:59 UNV Labs: Lab Laboratory Tests Test 02/17/20 10:10 02/17/20 11:00 02/17/20 16:12 02/17/20 21:02 White Blood Count 7.5 x10^3/uL (4.0-11.0) Red Blood Count 3.99 x10^6/uL (4.30-5.70) Hemoglobin 12.3 g/dL (13.0-17.5) Hematocrit 35.4 % (39.0-53.0) Mean Corpuscular Volume 89 fL (79-100) Mean Corpuscular Hemoglobin 31 pg (25-35) Mean Corpuscular Hemoglobin Concent 35 g/dL (31-37) Red Cell Distribution Width 13.8 % (11.5-14.5) Platelet Count 260 x10^3/uL (140-400) Neutrophils (%) (Auto) 72 % (31-73) Lymphocytes (%) (Auto) 16 % (24-48) Monocytes (%) (Auto) 9 % (0-9) Eosinophils (%) (Auto) 3 % (0-3) Basophils (%) (Auto) 0 % (0-3) Neutrophils # (Auto) 5.4 x10^3/uL (1.8-7.7) Lymphocytes # (Auto) 1.2 x10^3/uL (1.0-4.8) Monocytes # (Auto) 0.7 x10^3/uL (0.0-1.1) Eosinophils # (Auto) 0.2 x10^3/uL (0.0-0.7) Basophils # (Auto) 0.0 x10^3/uL (0.0-0.2) Sodium Level 142 mmol/L (136-145) Potassium Level 2.8 mmol/L (3.5-5.1) Chloride Level 107 mmol/L (98-107) Carbon Dioxide Level 27 mmol/L (21-32) Anion Gap 8 (6-14) Blood Urea Nitrogen 11 mg/dL (8-26) Creatinine 1.3 mg/dL (0.7-1.3) Estimated GFR (Cockcroft-Gault) 55.9 Glucose Level 254 mg/dL (70-99) Calcium Level 7.4 mg/dL (8.5-10.1) Glucose (Fingerstick) 198 mg/dL (70-99) 98 mg/dL (70-99) 212 mg/dL (70-99) Test 02/18/20 07:14 Glucose (Fingerstick) 165 mg/dL (70-99) Micro RUN DATE: 02/15/20 [facility] *LIVE* PAGE 1 RUN TIME: 1033 Specimen Inquiry PATIENT: MARIA LUISA MANLEY ACCT: [id number] LOC: [address] [place] [address] U: [id number] AGE/SX: 64/M ROOM: [facility] RE02/12/[address]: PAPITO HERNANDEZ III, DO : 1955 BED: 1 DIS: STATUS: ADM IN TLOC: SPEC #: [id number] EULALIA: 02/13/20 STATUS: RES REQ #: [id number] RECD: 02/13/20-[address]: PAPITO HERNANDEZ III, DO SOURCE: DRAINAGE ENTR: 02/13/20-[address]: BRIANA SANTANA MD [facility]: KB SYED MD, KATHLEEN R MD ORDERED: ALEX/KHANH/KAREN COMMENTS: LEFT GLUTEAL ABSCESS Procedure Result GRAM STAIN Final Final GRAM POSITIVE COCCI:FEW SQUAMOUS EPI CELL:NONE SEEN PMN (WBCs):RARE Unless otherwise specified, Testing Performed by: [address] [id number] For Inquires, the Physician may contact the Microbiology department at [phone] ANAEROBIC-AEROBIC CULTURE Preliminary Preliminary MODERATE GRAM POSITIVE COCCI on 02/14/20 at 1040 FINAL ID= [STAPHYLOCOCCUS AUREUS] STAPHYLOCOCCUS AUREUS ANTIMICROBIAL SUSCEPTIBILITY Preliminary Comment POS SANJUANITA TYPE 38 STAPHYLOCOCCUS AUREUS ANTIBIOTIC RESULT INTERPRETATION AZITHROMYCIN <=2 S CLINDAMYCIN 0.5 S CEFOXITIN SCREEN <=4 NEG CIPROFLOXACIN >2 R CEFTAROLINE <=0.5 S DAPTOMYCIN <=0.5 S ERYTHROMYCIN 0.5 S GENTAMICIN <=4 S LINEZOLID 2 S LEVOFLOXACIN 4 I OXACILLIN <=0.25 S PENICILLIN <=0.03 Renard RIFAMPIN <=1 S TRIMETHOPRIM/SULFAMETHOXAZOLE <=0.5/9.5 S TETRACYCLINE <=4 S CONTINUED ON NEXT PAGE RUN DATE: 02/15/20 [facility] *LIVE* PAGE 2 RUN TIME: 1033 Specimen Inquiry SPEC: [id number] PATIENT: MARIA LUISA MANLEY [id number] (Continued) Procedure Result ANTIMICROBIAL SUSCEPTIBILITY Preliminary (continued) VANCOMYCIN 1 S Unless otherwise specified, Testing Performed by: [address] [id number] For Inquires, the Physician may contact the Microbiology department at [phone] Objective: Assessment: 1. Left gluteal abscess, status post I and D, 02/13/2020.cult staph aureus 2. Postop hypotension, status post IV fluid infusion.resolved 3. Leukocytosis. 4. Lactic acidosis. 5. Acute kidney injury. 6. History of right nephrectomy for renal cell carcinoma. 7. Hyponatremia. 8. Diabetes mellitus. 9. Arrhythmia; NSVT . Echo with preserved LV systolic function. Plan: Plan of Care Continue Zosyn for now Transition to Invanz 1 gm first dose here before discharge Prescription in chart Social work to assist for discharge planning PICC care Anticipate slow response due to close proximity with anal canal and fecal soilage Wound /VAC care as directed Probiotics Follow-up ID clinic in 2 weeks March 04 call for appointment [phone] Supportive care. GABY SANTANA MD February 18, 2020 08:25
[2020-02-18] MEDS: INSULIN LISPRO 300 UNITS/3 ML VIAL. SQ SCH ×6 (08:26→17:00)
[2020-02-18] MEDS: INSULIN GLARGINE SYRINGE. SQ SCH ×2 (08:27→21:36)
--- NOTE | 2020-02-18 10:20 | PDOC ---
PROGRESS NOTES Chief Complaint Chief Complaint Left gluteal abscess; s/p I and D Leukocytosis secondary to the above Lactic acidosis secondary to above mentioned infection History of diabetes type 2 insulin requiring Arrhythmia; NSVT vs aberrant AFIB H/o renal CA s/p nephrectomy Acute renal failure secondary to vasomotor etiology most likely S/P mechanical fall secondary to slipping Hypokalemia Plan: Follow cultures Continue broad spectrum antibiotics Continue wound VAC care follow recommendations from project consultant Discharge once arrangements for outpatient antibiotic therapy and wound VAC care has been arranged by case management History of Present Illness History of Present Illness Mr Smith is a 64yo M [employer] w/ PMHx Diabetes, hypertension, gastroparesis, renal cell carcinoma, status post right nephrectomy, history of CVA, peripheral neuropathy, history of Strep intermedius bacteremia in 02/2019, left fifth metatarsal osteomyelitis or joint infection and abscess, status post I and D and partial ray amputation who presented to the ED with gluteal pain starting 2 days prior to admission. Was septic with SHA. CT abdomen and pelvic CT showed fat stranding and soft tissue thickening along the intergluteal cleft on the left with a vague area of hypoattenuation just deep to the skin may be poorly formed or developing abscess. This measures about 5 x 2 x 4 cm in size and extends towards the perineum. No definite perianal or perirectal abscess. Surgery consulted for left gluteal abscess with I and D and drainage with debridement. ID consulted as well. 02/16: K 2.9 Afebrile overnight, K2.9. 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 He is learning how to have a bowel movement feels like he is able to keep his wound site clean. Pain reasonably controlled. No S OB or CP. Vitals Vitals Vital Signs Date Time Temp Pulse Resp B/P (MAP) Pulse Ox O2 Delivery O2 Flow Rate FiO2 02/18/20 07:30 98.6 72 18 156/101 (119) 97 Room Air 98.6 Physical Exam Physical Exam GENERAL: Lying on prone, alert in NAD HEENT: Oral cavity clear, no thrush NECK: Supple LUNGS: Clear bilaterally. HEART: S1, S2 regular. ABDOMEN: Left gluteal wound wound vac in place, no area redness or induration EXTREMITIES: No edema. SKIN: without rash. NEUROLOGIC: Alert and oriented x 3, grossly nonfocal. PSYCHIATRIC: Cooperative, appropriate mood and affect RUE-PICC (02/15) without signs of complications General: Alert, Oriented X3, Cooperative, mild distress Heart: Regular rate, Normal S1, Normal S2 Lungs: Clear Abdomen: Soft, No tenderness Extremities: No edema, Normal pulses Skin: Other (Wounds dressed) Labs LABS Laboratory Tests Test 02/17/20 11:00 02/17/20 16:12 02/17/20 21:02 02/18/20 07:14 Glucose (Fingerstick) 198 mg/dL (70-99) 98 mg/dL (70-99) 212 mg/dL (70-99) 165 mg/dL (70-99) Assessment and Plan Assessmemt and Plan Problems Medical Problems: (1) Gluteal abscess Status: Acute (2) Severe sepsis Status: Acute Comment Review of Relevant I have reviewed the following items antonio (where applicable) has been applied. Labs Laboratory Tests Test 02/16/20 11:14 02/16/20 16:22 02/16/20 20:32 02/17/20 07:01 Glucose (Fingerstick) 131 mg/dL (70-99) 85 mg/dL (70-99) 242 mg/dL (70-99) 180 mg/dL (70-99) Test 02/17/20 10:10 02/17/20 11:00 02/17/20 16:12 02/17/20 21:02 White Blood Count 7.5 x10^3/uL (4.0-11.0) Red Blood Count 3.99 x10^6/uL (4.30-5.70) Hemoglobin 12.3 g/dL (13.0-17.5) Hematocrit 35.4 % (39.0-53.0) Mean Corpuscular Volume 89 fL (79-100) Mean Corpuscular Hemoglobin 31 pg (25-35) Mean Corpuscular Hemoglobin Concent 35 g/dL (31-37) Red Cell Distribution Width 13.8 % (11.5-14.5) Platelet Count 260 x10^3/uL (140-400) Neutrophils (%) (Auto) 72 % (31-73) Lymphocytes (%) (Auto) 16 % (24-48) Monocytes (%) (Auto) 9 % (0-9) Eosinophils (%) (Auto) 3 % (0-3) Basophils (%) (Auto) 0 % (0-3) Neutrophils # (Auto) 5.4 x10^3/uL (1.8-7.7) Lymphocytes # (Auto) 1.2 x10^3/uL (1.0-4.8) Monocytes # (Auto) 0.7 x10^3/uL (0.0-1.1) Eosinophils # (Auto) 0.2 x10^3/uL (0.0-0.7) Basophils # (Auto) 0.0 x10^3/uL (0.0-0.2) Sodium Level 142 mmol/L (136-145) Potassium Level 2.8 mmol/L (3.5-5.1) Chloride Level 107 mmol/L (98-107) Carbon Dioxide Level 27 mmol/L (21-32) Anion Gap 8 (6-14) Blood Urea Nitrogen 11 mg/dL (8-26) Creatinine 1.3 mg/dL (0.7-1.3) Estimated GFR (Cockcroft-Gault) 55.9 Glucose Level 254 mg/dL (70-99) Calcium Level 7.4 mg/dL (8.5-10.1) Glucose (Fingerstick) 198 mg/dL (70-99) 98 mg/dL (70-99) 212 mg/dL (70-99) Test 02/18/20 07:14 Glucose (Fingerstick) 165 mg/dL (70-99) Laboratory Tests Test 02/17/20 11:00 02/17/20 16:12 02/17/20 21:02 02/18/20 07:14 Glucose (Fingerstick) 198 mg/dL (70-99) 98 mg/dL (70-99) 212 mg/dL (70-99) 165 mg/dL (70-99) Microbiology 02/13/20 Gram Stain - Final, Resulted 02/13/20 Aerobic and Anaerobic Culture - Preliminary, Resulted 02/13/20 Antimicrobic Susceptibility - Preliminary, Resulted 02/12/20 Blood Culture - Final, Complete NO GROWTH AFTER 5 DAYS Medications Current Medications Morphine Sulfate (Morphine Sulfate) 4 mg PRN Q15MIN PRN IV/SQ PAIN GREATER THAN 3/10 Last administered on 02/12/20at 12:31; Start 02/12/20 at 12:00; Stop 02/12/20 at 17:37; Status DC Sodium Chloride 1,000 ml @ 1,000 mls/hr Q1H IV Last administered on 02/12/20at 12:31; Start 02/12/20 at 11:58; Stop 02/12/20 at 12:57; Status DC Vancomycin HCl 2 gm/Sodium Chloride 500 ml @ 250 mls/hr 1X ONCE IV ; Start 02/12/20 at 13:00; Stop 02/12/20 at 14:59; Status UNV Piperacillin Sod/ Tazobactam Sod 4.5 gm/Sodium Chloride 100 ml @ 200 mls/hr 1X ONCE IV Last administered on 02/12/20at 13:54; Start 02/12/20 at 13:00; Stop 02/12/20 at 13:29; Status DC Vancomycin HCl 1.25 gm/Sodium Chloride 250 ml @ 166.667 mls/hr 1X ONCE IV Last administered on 02/12/20at 14:33; Start 02/12/20 at 13:15; Stop 02/12/20 at 14:44; Status DC Iohexol (Omnipaque 300 Mg/ml) 60 ml 1X ONCE IV Last administered on 02/12/20at 13:09; Start 02/12/20 at 13:15; Stop 02/12/20 at 13:16; Status DC Sodium Chloride 1,000 ml @ 1,000 mls/hr 1X ONCE IV Last administered on 02/12/20at 14:08; Start 02/12/20 at 14:00; Stop 02/12/20 at 14:59; Status DC Sodium Chloride 500 ml @ 500 mls/hr 1X ONCE IV Last administered on 02/12/20at 14:09; Start 02/12/20 at 14:00; Stop 02/12/20 at 14:59; Status DC Ondansetron HCl (Zofran) 4 mg PRN Q8HRS PRN IV NAUSEA/VOMITING; Start 02/12/20 at 15:15; Stop 02/13/20 at 15:14; Status DC Morphine Sulfate (Morphine Sulfate) 4 mg PRN Q2HR PRN IV PAIN Last administered on 02/13/20at 01:36; Start 02/12/20 at 15:15; Stop 02/13/20 at 15:14; Status DC Insulin Human Regular (HumuLIN R VIAL) 8 unit 1X ONCE IV Last administered on 02/12/20at 16:02; Start 02/12/20 at 15:45; Stop 02/12/20 at 15:46; Status DC Sodium Chloride 1,000 ml @ 100 mls/hr Q10H IV Last administered on 02/17/20at 06:25; Start 02/12/20 at 17:30; Stop 02/17/20 at 10:11; Status DC Piperacillin Sod/ Tazobactam Sod 3.375 gm/Sodium Chloride 50 ml @ 100 mls/hr Q6HRS IV Last administered on 02/18/20at 05:40; Start 02/12/20 at 18:00 Oxycodone/ Acetaminophen (Percocet 5/325) 1 tab PRN Q4HRS PRN PO PAIN Last administered on 02/17/20at 19:47; Start 02/12/20 at 17:45 Insulin Human Lispro (HumaLOG) 8 units TIDAC SQ Last administered on 02/13/20at 18:13; Start 02/13/20 at 07:30; Stop 02/14/20 at 08:55; Status DC Insulin Glargine (Lantus Syringe) 25 unit QHS SQ Last administered on 02/13/20at 21:23; Start 02/12/20 at 21:00; Stop 02/14/20 at 08:07; Status DC Glycopyrrolate (Robinul) 1 mg STK-MED ONCE .ROUTE ; Start 02/13/20 at 08:36; Stop 02/13/20 at 08:36; Status DC Sevoflurane (Ultane) 60 ml STK-MED ONCE IH ; Start 02/13/20 at 08:36; Stop 02/13/20 at 08:36; Status DC Rocuronium Bee (Zemuron) 50 mg STK-MED ONCE .ROUTE ; Start 02/13/20 at 08:36; Stop 02/13/20 at 08:36; Status DC Fentanyl Citrate (Fentanyl 2ml Vial) 100 mcg STK-MED ONCE .ROUTE ; Start 02/13/20 at 08:36; Stop 02/13/20 at 08:36; Status DC Neostigmine Bee (Neostigmine Methylsulfate) 5 mg STK-MED ONCE .ROUTE ; Start 02/13/20 at 08:36; Stop 02/13/20 at 08:36; Status DC Midazolam HCl (Versed) 2 mg STK-MED ONCE .ROUTE ; Start 02/13/20 at 08:36; Stop 02/13/20 at 08:37; Status DC Succinylcholine Chloride (Anectine) 200 mg STK-MED ONCE .ROUTE ; Start 02/13/20 at 08:37; Stop 02/13/20 at 08:38; Status DC Bupivacaine HCl/ Epinephrine Bitart (Sensorcain-Epi 0.5%-1:515763 Mpf) 30 ml STK-MED ONCE .ROUTE ; Start 02/13/20 at 08:54; Stop 02/13/20 at 08:54; Status DC Ondansetron HCl (Zofran) 4 mg PRN Q6HRS PRN IV NAUSEA/VOMITING; Start 02/13/20 at 09:15; Stop 02/14/20 at 09:14; Status DC Fentanyl Citrate (Fentanyl 2ml Vial) 25 mcg PRN Q5MIN PRN IV MILD PAIN 1-3; Start 02/13/20 at 09:15; Stop 02/14/20 at 09:14; Status DC Fentanyl Citrate (Fentanyl 2ml Vial) 50 mcg PRN Q5MIN PRN IV MODERATE TO SEVERE PAIN; Start 02/13/20 at 09:15; Stop 02/14/20 at 09:14; Status DC Morphine Sulfate (Morphine Sulfate) 1 mg PRN Q10MIN PRN IV SEVERE PAIN 7-10; Start 02/13/20 at 09:15; Stop 02/14/20 at 09:14; Status DC Ringer's Solution 1,000 ml @ 30 mls/hr Q24H IV Last administered on 02/13/20at 09:01; Start 02/13/20 at 09:01; Stop 02/13/20 at 21:00; Status DC Lidocaine HCl (Xylocaine-Mpf 1% 2ml Vial) 2 ml PRN 1X PRN ID PRIOR TO IV START; Start 02/13/20 at 09:15; Stop 02/14/20 at 09:14; Status DC Hydromorphone HCl (Dilaudid) 0.5 mg PRN Q10MIN PRN IV SEV PAIN, Second choice; Start 02/13/20 at 09:15; Stop 02/14/20 at 09:14; Status DC Prochlorperazine Edisylate (Compazine) 5 mg PACU PRN PRN IV NAUSEA, MRX1; Start 02/13/20 at 09:15; Stop 02/14/20 at 09:14; Status DC Phenylephrine HCl (PHENYLEPHRINE in 0.9% NACL PF) 1 mg STK-MED ONCE IV ; Start 02/13/20 at 09:27; Stop 02/13/20 at 09:28; Status DC Insulin Human Lispro (HumaLOG VIAL for OP,RR ONLY) 0-10 units PRN Q1HR PRN SQ PER PROTOCOL Last administered on 02/13/20at 10:30; Start 02/13/20 at 10:30; Stop 02/13/20 at 19:00; Status DC Daptomycin 520 mg/ Sodium Chloride 50 ml @ 100 mls/hr Q24H IV Last administered on 02/15/20at 14:35; Start 02/13/20 at 14:00; Stop 02/16/20 at 09:25; Status DC Insulin Human Lispro (HumaLOG) 8 units 1X ONCE SQ Last administered on 02/13/20at 21:24; Start 02/13/20 at 21:30; Stop 02/13/20 at 21:31; Status DC Insulin Glargine (Lantus Syringe) 15 unit BID SQ ; Start 02/14/20 at 09:00; Stop 02/14/20 at 08:55; Status DC Insulin Glargine (Lantus Syringe) 20 unit BID SQ Last administered on 02/18/20at 08:27; Start 02/14/20 at 09:00 Insulin Human Lispro (HumaLOG) 10 units TIDAC SQ Last administered on 02/18/20at 08:27; Start 02/14/20 at 11:30 Potassium Chloride (Klor-Con) 20 meq 1X ONCE PO Last administered on 02/14/20at 13:00; Start 02/14/20 at 11:30; Stop 02/14/20 at 11:37; Status DC Insulin Human Lispro (HumaLOG) 2 units 1X ONCE SQ Last administered on 02/14/20at 18:36; Start 02/14/20 at 17:30; Stop 02/14/20 at 17:31; Status DC Lactobacillus Rhamnosus (Culturelle) 1 cap BID PO Last administered on 02/18/20at 08:14; Start 02/14/20 at 21:00 Insulin Human Lispro (HumaLOG) 12 units ONCE ONCE SQ Last administered on 02/14/20at 20:14; Start 02/14/20 at 20:00; Stop 02/14/20 at 20:01; Status DC Insulin Human Lispro (HumaLOG) 0-7 UNITS TIDWMEALS SQ Last administered on 02/18/20at 08:26; Start 02/15/20 at 08:00 Dextrose (Dextrose 50%-Water Syringe) 12.5 gm PRN Q15MIN PRN IV SEE COMMENTS; Start 02/14/20 at 20:00 Ringer's Solution 1,000 ml @ 125 mls/hr Q8H IV ; Start 02/17/20 at 10:15; Stop 02/17/20 at 10:16; Status DC Sodium Chloride 1,000 ml @ 100 mls/hr Q10H IV Last administered on 02/18/20at 08:14; Start 02/17/20 at 10:15 Potassium Chloride/Water 100 ml @ 100 mls/hr Q1H IV Last administered on 02/17/20at 14:00; Start 02/17/20 at 11:00; Stop 02/17/20 at 14:59; Status DC Active Scripts Active Percocet 5-325 Mg Tablet (Oxycodone/Acetaminophen) 1 Each Tablet 1 Tab PO PRN Q4HRS PRN 7 Days Reported Novolog (Insulin Aspart) 100 Unit/1 Ml Cartridge 8 Unit SQ TIDAC Lantus Solostar (Insulin Glargine,Hum.rec.anlog) 100 Unit/1 Ml Insuln.pen 25 Unit SQ QHS Vitals/I & O Vital Sign - Last 24 Hours 02/17/20 02/17/20 02/17/20 02/17/20 10:49 15:00 19:00 19:47 Temp 98.2 98.0 98.4 98.2 98.0 98.4 Pulse 68 64 77 Resp 19 19 16 20 B/P (MAP) 142/84 (103) 148/70 (96) 163/98 (119) Pulse Ox 97 98 97 O2 Delivery Room Air Room Air Room Air 5/2402/17/20 02/18/20 02/18/20 21:00 23:00 03:00 07:30 Temp 98.9 98.7 98.6 98.9 98.7 98.6 Pulse 84 75 72 Resp 18 16 18 B/P (MAP) 126/84 (98) 119/70 (86) 156/101 (119) Pulse Ox 96 95 97 O2 Delivery Room Air Room Air Intake and Output 02/17/20 02/17/20 02/18/20 15:00 23:00 07:00 Intake Total 600 ml 300 ml 6737 ml Output Total 1050 ml 400 ml Balance 600 ml -750 ml 6337 ml PAPITO PAGE MD February 18, 2020 10:20
[2020-02-18 11:17] LABS: CALCIUM 7.7 mg/dL (8.5-10.1); CREATININE 1.2 mg/dL (0.7-1.3); GFR 61.3; MAGNESIUM 1.6 mg/dL (1.8-2.4)
[2020-02-18 11:21] LABS: POTASSIUM 2.9 mmol/L (3.5-5.1)
[2020-02-18] MEDS ORDERED: POTASSIUM CHLORIDE 20 MEQ TABLET.ER. PO ONE (11:30)
[2020-02-18 11:43] VITALS: BP 144/90
[2020-02-18] MEDS: POTASSIUM CHLORIDE 10MEQ 100 ML IV SCH ×2 (12:54→16:38)
[2020-02-18 15:13] VITALS: BP 130/82
[2020-02-18] MEDS ORDERED: MAGNESIUM SULFATE 2GM 50 ML IV ONE (15:30)
[2020-02-18 19:31] VITALS: BP 138/81
[2020-02-18 23:30] VITALS: BP 141/94
[2020-02-19] MEDS: PIPERACILLIN/TAZOBACTAM 3.375 GM in IV NORMAL SALINE 50ML 50 ML IV SCH ×4 (00:42→17:54)
[2020-02-19] MEDS: IV NORMAL SALINE 1000ML BAG 1,000 ML IV SCH ×3 (02:15→22:00)
[2020-02-19 03:54] VITALS: BP 130/76
[2020-02-19 07:30] VITALS: BP 101/47
--- NOTE | 2020-02-19 07:55 | NUR ---
Wound Care Pt's home vac application still in process at [facility], awaiting pt's insurance to finish clinical review.
--- NOTE | 2020-02-19 08:58 | PDOC ---
PROGRESS NOTES Chief Complaint Chief Complaint Left gluteal abscess; s/p I and D Leukocytosis secondary to the above Lactic acidosis secondary to above mentioned infection History of diabetes type 2 insulin requiring Arrhythmia; NSVT vs aberrant AFIB H/o renal CA s/p nephrectomy Acute renal failure secondary to vasomotor etiology most likely S/P mechanical fall secondary to slipping Hypokalemia Plan: Follow cultures Continue broad spectrum antibiotics Continue wound VAC care follow recommendations from weight loss consultant Discharge once arrangements for outpatient antibiotic therapy and wound VAC care has been arranged by case management History of Present Illness History of Present Illness Mr Smith is a 64yo M [employer] [place] w/ PMHx Diabetes, hypertension, gastroparesis, renal cell carcinoma, status post right nephrectomy, history of CVA, peripheral neuropathy, history of Strep intermedius bacteremia in 02/2019, left fifth metatarsal osteomyelitis or joint infection and abscess, status post I and D and partial ray amputation who presented to the ED with gluteal pain starting 2 days prior to admission. Was septic with SHA. CT abdomen and pelvic CT showed fat stranding and soft tissue thickening along the intergluteal cleft on the left with a vague area of hypoattenuation just deep to the skin may be poorly formed or developing abscess. This measures about 5 x 2 x 4 cm in size and extends towards the perineum. No definite perianal or perirectal abscess. Surgery consulted for left gluteal abscess with I and D and drainage with debridement. ID consulted as well. 02/16: K 2.9 02/17: Afebrile overnight, K 2.9. 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 He is learning how to have a bowel movement feels like he is able to keep his wound site clean. Pain reasonably controlled. No SOB or CP. Afebrile. Pain well controlled /10. Tolerating wound vac well Vitals Vitals Vital Signs Date Time Temp Pulse Resp B/P (MAP) Pulse Ox O2 Delivery O2 Flow Rate FiO2 02/19/20 07:30 98.7 75 17 101/47 (65) 97 Room Air 98.7 Physical Exam Physical Exam GENERAL: Lying on prone, alert in NAD HEENT: Oral cavity clear, no thrush NECK: Supple LUNGS: Clear bilaterally. HEART: S1, S2 regular. ABDOMEN: Left gluteal wound wound vac in place, no area redness or induration EXTREMITIES: No edema. SKIN: without rash. NEUROLOGIC: Alert and oriented x 3, grossly nonfocal. PSYCHIATRIC: Cooperative, appropriate mood and affect RUE-PICC (02/15) without signs of complications General: Alert, Oriented X3, Cooperative, mild distress Heart: Regular rate, Normal S1, Normal S2 Lungs: Clear Abdomen: Soft, No tenderness Extremities: No edema, Normal pulses Skin: Other (Wounds dressed) Labs LABS Laboratory Tests Test 02/18/20 10:54 02/18/20 11:13 02/18/20 16:55 02/18/20 19:14 Sodium Level 140 mmol/L (136-145) Potassium Level 2.9 mmol/L (3.5-5.1) Chloride Level 105 mmol/L (98-107) Carbon Dioxide Level 29 mmol/L (21-32) Anion Gap 6 (6-14) Blood Urea Nitrogen 8 mg/dL (8-26) Creatinine 1.2 mg/dL (0.7-1.3) Estimated GFR (Cockcroft-Gault) 61.3 Glucose Level 196 mg/dL (70-99) Calcium Level 7.7 mg/dL (8.5-10.1) Magnesium Level 1.6 mg/dL (1.8-2.4) Glucose (Fingerstick) 170 mg/dL (70-99) 72 mg/dL (70-99) 239 mg/dL (70-99) Test 02/19/20 07:39 Glucose (Fingerstick) 202 mg/dL (70-99) Assessment and Plan Assessmemt and Plan Problems Medical Problems: (1) Gluteal abscess Status: Acute (2) Severe sepsis Status: Acute Comment Review of Relevant I have reviewed the following items antonio (where applicable) has been applied. Labs Laboratory Tests Test 02/17/20 10:10 02/17/20 11:00 02/17/20 16:12 02/17/20 21:02 White Blood Count 7.5 x10^3/uL (4.0-11.0) Red Blood Count 3.99 x10^6/uL (4.30-5.70) Hemoglobin 12.3 g/dL (13.0-17.5) Hematocrit 35.4 % (39.0-53.0) Mean Corpuscular Volume 89 fL (79-100) Mean Corpuscular Hemoglobin 31 pg (25-35) Mean Corpuscular Hemoglobin Concent 35 g/dL (31-37) Red Cell Distribution Width 13.8 % (11.5-14.5) Platelet Count 260 x10^3/uL (140-400) Neutrophils (%) (Auto) 72 % (31-73) Lymphocytes (%) (Auto) 16 % (24-48) Monocytes (%) (Auto) 9 % (0-9) Eosinophils (%) (Auto) 3 % (0-3) Basophils (%) (Auto) 0 % (0-3) Neutrophils # (Auto) 5.4 x10^3/uL (1.8-7.7) Lymphocytes # (Auto) 1.2 x10^3/uL (1.0-4.8) Monocytes # (Auto) 0.7 x10^3/uL (0.0-1.1) Eosinophils # (Auto) 0.2 x10^3/uL (0.0-0.7) Basophils # (Auto) 0.0 x10^3/uL (0.0-0.2) Sodium Level 142 mmol/L (136-145) Potassium Level 2.8 mmol/L (3.5-5.1) Chloride Level 107 mmol/L (98-107) Carbon Dioxide Level 27 mmol/L (21-32) Anion Gap 8 (6-14) Blood Urea Nitrogen 11 mg/dL (8-26) Creatinine 1.3 mg/dL (0.7-1.3) Estimated GFR (Cockcroft-Gault) 55.9 Glucose Level 254 mg/dL (70-99) Calcium Level 7.4 mg/dL (8.5-10.1) Glucose (Fingerstick) 198 mg/dL (70-99) 98 mg/dL (70-99) 212 mg/dL (70-99) Test 02/18/20 07:14 02/18/20 10:54 02/18/20 11:13 02/18/20 16:55 Glucose (Fingerstick) 165 mg/dL (70-99) 170 mg/dL (70-99) 72 mg/dL (70-99) Sodium Level 140 mmol/L (136-145) Potassium Level 2.9 mmol/L (3.5-5.1) Chloride Level 105 mmol/L (98-107) Carbon Dioxide Level 29 mmol/L (21-32) Anion Gap 6 (6-14) Blood Urea Nitrogen 8 mg/dL (8-26) Creatinine 1.2 mg/dL (0.7-1.3) Estimated GFR (Cockcroft-Gault) 61.3 Glucose Level 196 mg/dL (70-99) Calcium Level 7.7 mg/dL (8.5-10.1) Magnesium Level 1.6 mg/dL (1.8-2.4) Test 02/18/20 19:14 02/19/20 07:39 Glucose (Fingerstick) 239 mg/dL (70-99) 202 mg/dL (70-99) Laboratory Tests Test 02/18/20 10:54 02/18/20 11:13 02/18/20 16:55 02/18/20 19:14 Sodium Level 140 mmol/L (136-145) Potassium Level 2.9 mmol/L (3.5-5.1) Chloride Level 105 mmol/L (98-107) Carbon Dioxide Level 29 mmol/L (21-32) Anion Gap 6 (6-14) Blood Urea Nitrogen 8 mg/dL (8-26) Creatinine 1.2 mg/dL (0.7-1.3) Estimated GFR (Cockcroft-Gault) 61.3 Glucose Level 196 mg/dL (70-99) Calcium Level 7.7 mg/dL (8.5-10.1) Magnesium Level 1.6 mg/dL (1.8-2.4) Glucose (Fingerstick) 170 mg/dL (70-99) 72 mg/dL (70-99) 239 mg/dL (70-99) Test 02/19/20 07:39 Glucose (Fingerstick) 202 mg/dL (70-99) Microbiology 02/13/20 Gram Stain - Final, Resulted 02/13/20 Aerobic and Anaerobic Culture - Preliminary, Resulted 02/13/20 Antimicrobic Susceptibility - Preliminary, Resulted 02/12/20 Blood Culture - Final, Complete NO GROWTH AFTER 5 DAYS Medications Current Medications Morphine Sulfate (Morphine Sulfate) 4 mg PRN Q15MIN PRN IV/SQ PAIN GREATER THAN 3/10 Last administered on 02/12/20at 12:31; Start 02/12/20 at 12:00; Stop 02/12/20 at 17:37; Status DC Sodium Chloride 1,000 ml @ 1,000 mls/hr Q1H IV Last administered on 02/12/20at 12:31; Start 02/12/20 at 11:58; Stop 02/12/20 at 12:57; Status DC Vancomycin HCl 2 gm/Sodium Chloride 500 ml @ 250 mls/hr 1X ONCE IV ; Start 02/12/20 at 13:00; Stop 02/12/20 at 14:59; Status UNV Piperacillin Sod/ Tazobactam Sod 4.5 gm/Sodium Chloride 100 ml @ 200 mls/hr 1X ONCE IV Last administered on 02/12/20at 13:54; Start 02/12/20 at 13:00; Stop 02/12/20 at 13:29; Status DC Vancomycin HCl 1.25 gm/Sodium Chloride 250 ml @ 166.667 mls/hr 1X ONCE IV Last administered on 02/12/20at 14:33; Start 02/12/20 at 13:15; Stop 02/12/20 at 14:44; Status DC Iohexol (Omnipaque 300 Mg/ml) 60 ml 1X ONCE IV Last administered on 02/12/20at 13:09; Start 02/12/20 at 13:15; Stop 02/12/20 at 13:16; Status DC Sodium Chloride 1,000 ml @ 1,000 mls/hr 1X ONCE IV Last administered on 02/12/20at 14:08; Start 02/12/20 at 14:00; Stop 02/12/20 at 14:59; Status DC Sodium Chloride 500 ml @ 500 mls/hr 1X ONCE IV Last administered on 02/12/20at 14:09; Start 02/12/20 at 14:00; Stop 02/12/20 at 14:59; Status DC Ondansetron HCl (Zofran) 4 mg PRN Q8HRS PRN IV NAUSEA/VOMITING; Start 02/12/20 at 15:15; Stop 02/13/20 at 15:14; Status DC Morphine Sulfate (Morphine Sulfate) 4 mg PRN Q2HR PRN IV PAIN Last administered on 02/13/20at 01:36; Start 02/12/20 at 15:15; Stop 02/13/20 at 15:14; Status DC Insulin Human Regular (HumuLIN R VIAL) 8 unit 1X ONCE IV Last administered on 02/12/20at 16:02; Start 02/12/20 at 15:45; Stop 02/12/20 at 15:46; Status DC Sodium Chloride 1,000 ml @ 100 mls/hr Q10H IV Last administered on 02/17/20at 06:25; Start 02/12/20 at 17:30; Stop 02/17/20 at 10:11; Status DC Piperacillin Sod/ Tazobactam Sod 3.375 gm/Sodium Chloride 50 ml @ 100 mls/hr Q6HRS IV Last administered on 02/19/20at 07:42; Start 02/12/20 at 18:00 Oxycodone/ Acetaminophen (Percocet 5/325) 1 tab PRN Q4HRS PRN PO PAIN Last administered on 02/17/20at 19:47; Start 02/12/20 at 17:45 Insulin Human Lispro (HumaLOG) 8 units TIDAC SQ Last administered on 02/13/20at 18:13; Start 02/13/20 at 07:30; Stop 02/14/20 at 08:55; Status DC Insulin Glargine (Lantus Syringe) 25 unit QHS SQ Last administered on 02/13/20at 21:23; Start 02/12/20 at 21:00; Stop 02/14/20 at 08:07; Status DC Glycopyrrolate (Robinul) 1 mg STK-MED ONCE .ROUTE ; Start 02/13/20 at 08:36; Stop 02/13/20 at 08:36; Status DC Sevoflurane (Ultane) 60 ml STK-MED ONCE IH ; Start 02/13/20 at 08:36; Stop 02/13/20 at 08:36; Status DC Rocuronium [place] (Zemuron) 50 mg STK-MED ONCE .ROUTE ; Start 02/13/20 at 08:36; Stop 02/13/20 at 08:36; Status DC Fentanyl Citrate (Fentanyl 2ml Vial) 100 mcg STK-MED ONCE .ROUTE ; Start 02/12 at 08:36; Stop 02/13/20 at 08:36; Status DC Neostigmine [place] (Neostigmine Methylsulfate) 5 mg STK-MED ONCE .ROUTE ; Sta rt 02/13/20 at 08:36; Stop 02/13/20 at 08:36; Status DC Midazolam HCl (Versed) 2 mg STK-MED ONCE .ROUTE ; Start 02/13/20 at 08:36; Stop 02/13/20 at 08:37; Status DC Succinylcholine Chloride (Anectine) 200 mg STK-MED ONCE .ROUTE ; Start 02/13/20 at 08:37; Stop 02/13/20 at 08:38; Status DC Bupivacaine HCl/ Epinephrine Bitart (Sensorcain-Epi 0.5%-1:764718 Mpf) 30 ml STK-MED ONCE .ROUTE ; Start 02/13/20 at 08:54; Stop 02/13/20 at 08:54; Status DC Ondansetron HCl (Zofran) 4 mg PRN Q6HRS PRN IV NAUSEA/VOMITING; Start 02/13/20 at 09:15; Stop 02/14/20 at 09:14; Status DC Fentanyl Citrate (Fentanyl 2ml Vial) 25 mcg PRN Q5MIN PRN IV MILD PAIN 1-3; Start 02/13/20 at 09:15; Stop 02/14/20 at 09:14; Status DC Fentanyl Citrate (Fentanyl 2ml Vial) 50 mcg PRN Q5MIN PRN IV MODERATE TO SEVERE PAIN; Start 02/13/20 at 09:15; Stop 02/14/20 at 09:14; Status DC Morphine Sulfate (Morphine Sulfate) 1 mg PRN Q10MIN PRN IV SEVERE PAIN 7-10; Start 02/13/20 at 09:15; Stop 02/14/20 at 09:14; Status DC Ringer's Solution 1,000 ml @ 30 mls/hr Q24H IV Last administered on 02/13/20at 09:01; Start 02/13/20 at 09:01; Stop 02/13/20 at 21:00; Status DC Lidocaine HCl (Xylocaine-Mpf 1% 2ml Vial) 2 ml PRN 1X PRN ID PRIOR TO IV START; Start 02/13/20 at 09:15; Stop 02/14/20 at 09:14; Status DC Hydromorphone HCl (Dilaudid) 0.5 mg PRN Q10MIN PRN IV SEV PAIN, Second choice; Start 02/13/20 at 09:15; Stop 02/14/20 at 09:14; Status DC Prochlorperazine Edisylate (Compazine) 5 mg PACU PRN PRN IV NAUSEA, MRX1; Start 02/13/20 at 09:15; Stop 02/14/20 at 09:14; Status DC Phenylephrine HCl (PHENYLEPHRINE in 0.9% NACL PF) 1 mg STK-MED ONCE IV ; Start 02/13/20 at 09:27; Stop 02/13/20 at 09:28; Status DC Insulin Human Lispro (HumaLOG VIAL for OP,RR ONLY) 0-10 units PRN Q1HR PRN SQ PER PROTOCOL Last administered on 02/13/20at 10:30; Start 02/13/20 at 10:30; Stop 02/13/20 at 19:00; Status DC Daptomycin 520 mg/ Sodium Chloride 50 ml @ 100 mls/hr Q24H IV Last administered on 02/15/20at 14:35; Start 02/13/20 at 14:00; Stop 02/16/20 at 09:25; Status DC Insulin Human Lispro (HumaLOG) 8 units 1X ONCE SQ Last administered on 02/13/20at 21:24; Start 02/13/20 at 21:30; Stop 02/13/20 at 21:31; Status DC Insulin Glargine (Lantus Syringe) 15 unit BID SQ ; Start 02/14/20 at 09:00; Stop 02/14/20 at 08:55; Status DC Insulin Glargine (Lantus Syringe) 20 unit BID SQ Last administered on 02/18/20at 21:36; Start 02/14/20 at 09:00 Insulin Human Lispro (HumaLOG) 10 units TIDAC SQ Last administered on 02/18/20at 12:57; Start 02/14/20 at 11:30 Potassium Chloride (Klor-Con) 20 meq 1X ONCE PO Last administered on 02/14/20at 13:00; Start 02/14/20 at 11:30; Stop 02/14/20 at 11:37; Status DC Insulin Human Lispro (HumaLOG) 2 units 1X ONCE SQ Last administered on 02/14/20at 18:36; Start 02/14/20 at 17:30; Stop 02/14/20 at 17:31; Status DC Lactobacillus Rhamnosus (Culturelle) 1 cap BID PO Last administered on 02/18/20at 21:28; Start 02/14/20 at 21:00 Insulin Human Lispro (HumaLOG) 12 units ONCE ONCE SQ Last administered on 02/14/20at 20:14; Start 02/14/20 at 20:00; Stop 02/14/20 at 20:01; Status DC Insulin Human Lispro (HumaLOG) 0-7 UNITS TIDWMEALS SQ Last administered on 02/18/20at 12:56; Start 02/15/20 at 08:00 Dextrose (Dextrose 50%-Water Syringe) 12.5 gm PRN Q15MIN PRN IV SEE COMMENTS; Start 02/14/20 at 20:00 Ringer's Solution 1,000 ml @ 125 mls/hr Q8H IV ; Start 02/17/20 at 10:15; Stop 02/17/20 at 10:16; Status DC Sodium Chloride 1,000 ml @ 100 mls/hr Q10H IV Last administered on 02/18/20at 16:51; Start 02/17/20 at 10:15 Potassium Chloride/Water 100 ml @ 100 mls/hr Q1H IV Last administered on 02/17/20at 14:00; Start 02/17/20 at 11:00; Stop 02/17/20 at 14:59; Status DC Potassium Chloride/Water 100 ml @ 100 mls/hr Q1H IV Last administered on 02/18/20at 16:38; Start 02/18/20 at 11:30; Stop 02/18/20 at 13:29; Status DC Potassium Chloride (Klor-Con) 40 meq 1X ONCE PO Last administered on 02/18/20at 12:52; Start 02/18/20 at 11:30; Stop 02/18/20 at 11:37; Status DC Magnesium Sulfate 50 ml @ 25 mls/hr 1X ONCE IV Last administered on 02/18/20at 16:39; Start 02/18/20 at 15:30; Stop 02/18/20 at 17:29; Status DC Active Scripts Active Percocet 5-325 Mg Tablet (Oxycodone/Acetaminophen) 1 Each Tablet 1 Tab PO PRN Q4HRS PRN 7 Days Reported Novolog (Insulin Aspart) 100 Unit/1 Ml Cartridge 8 Unit SQ TIDAC Lantus Solostar (Insulin Glargine,Hum.rec.anlog) 100 Unit/1 Ml Insuln.pen 25 Unit SQ QHS Vitals/I & O Vital Sign - Last 24 Hours 02/18/20 02/18/20 02/18/20 02/18/20 11:43 15:13 19:31 21:00 Temp 98.4 98.6 98.3 98.4 98.6 98.3 Pulse 68 78 82 Resp 18 18 16 B/P (MAP) 144/90 (108) 130/82 (98) 138/81 (100) Pulse Ox 98 96 96 O2 Delivery Room Air Room Air Room Air Room Air 02/18/20 02/19/20 02/19/20 23:30 03:54 07:30 Temp 98.4 98.5 98.7 98.4 98.5 98.7 Pulse 83 74 75 Resp 20 16 17 B/P (MAP) 141/94 (110) 130/76 (94) 101/47 (65) Pulse Ox 98 96 97 O2 Delivery Room Air Room Air Room Air Intake and Output 02/18/20 02/18/20 02/19/20 15:00 23:00 07:00 Intake Total 600 ml 540 ml 300 ml Output Total 1500 ml 800 ml 600 ml Balance -900 ml -260 ml -300 ml PAPITO PAGE MD February 19, 2020 08:58
[2020-02-19] MEDS: LACTOBACILLUS RHAMNOSUS GG 1 CAPSULE. PO SCH ×2 (09:03→20:54)
[2020-02-19] MEDS: INSULIN LISPRO 300 UNITS/3 ML VIAL. SQ SCH ×6 (09:08→17:00)
[2020-02-19] MEDS: INSULIN GLARGINE SYRINGE. SQ SCH ×2 (09:09→20:55)
[2020-02-19 11:01] VITALS: BP 104/75
--- NOTE | 2020-02-19 11:31 | PDOC ---
Infectious Disease Note Subjective: Subjective Says pain level a 2, much better Denies F/C/N/V/D Vital Signs: Vital Signs Vital Signs Date Time Temp Pulse Resp B/P (MAP) Pulse Ox O2 Delivery O2 Flow Rate FiO2 02/19/20 11:01 98.5 96 16 104/75 (85) 93 Room Air 98.5 Physical Exam: PHYSICAL EXAM GENERAL: Lying on prone, alert in NAD HEENT: Oral cavity clear, no thrush NECK: Supple LUNGS: Clear bilaterally. HEART: S1, S2 regular. ABDOMEN: Left gluteal wound wound vac in place, no area redness or induration EXTREMITIES: No edema. SKIN: without rash. NEUROLOGIC: Alert and oriented x 3, grossly nonfocal. PSYCHIATRIC: Cooperative, appropriate mood and affect RUE-PICC (02/15) without signs of complications Medications: Inpatient Meds: Current Medications Medications (Trade) Dose Ordered Sig/Ty Start Time Stop Time Status Last Admin Dose Admin Bupivacaine HCl/ Epinephrine Bitart (Sensorcain-Epi 0.5%-1:831303 Mpf) 30 ml STK-MED ONCE 02/13/20 08:54 02/13/20 08:54 DC Daptomycin 520 mg/ Sodium Chloride 50 ml @ 100 mls/hr Q24H 02/13/20 14:00 02/16/20 09:25 DC 02/15/20 14:35 100 MLS/HR Dextrose (Dextrose 50%-Water Syringe) 12.5 gm PRN Q15MIN PRN 02/14/20 20:00 Fentanyl Citrate (Fentanyl 2ml Vial) 50 mcg PRN Q5MIN PRN 02/13/20 09:15 02/14/20 09:14 DC Glycopyrrolate (Robinul) 1 mg STK-MED ONCE 02/13/20 08:36 02/13/20 08:36 DC Hydromorphone HCl (Dilaudid) 0.5 mg PRN Q10MIN PRN 02/13/20 09:15 02/14/20 09:14 DC Insulin Glargine (Lantus Syringe) 20 unit BID 02/14/20 09:00 02/19/20 09:09 20 UNIT Insulin Human Lispro (HumaLOG VIAL for OP,RR ONLY) 0-10 units PRN Q1HR PRN 02/13/20 10:30 02/13/20 19:00 DC 02/13/20 10:30 8 UNIT Insulin Human Lispro (HumaLOG) 0-7 UNITS TIDWMEALS 02/15/20 08:00 02/19/20 09:09 4 UNITS Insulin Human Regular (HumuLIN R VIAL) 8 unit 1X ONCE 02/12/20 15:45 02/12/20 15:46 DC 02/12/20 16:02 5 UNIT Iohexol (Omnipaque 300 Mg/ml) 60 ml 1X ONCE 02/12/20 13:15 02/12/20 13:16 DC 02/12/20 13:09 60 ML Lactobacillus Rhamnosus (Culturelle) 1 cap BID 02/14/20 21:00 02/19/20 09:03 1 CAP Lidocaine HCl (Xylocaine-Mpf 1% 2ml Vial) 2 ml PRN 1X PRN 02/13/20 09:15 02/14/20 09:14 DC Magnesium Sulfate 50 ml @ 25 mls/hr 1X ONCE 02/18/20 15:30 02/18/20 17:29 DC 02/18/20 16:39 25 MLS/HR Midazolam HCl (Versed) 2 mg STK-MED ONCE 02/13/20 08:36 02/13/20 08:37 DC Morphine Sulfate (Morphine Sulfate) 1 mg PRN Q10MIN PRN 02/13/20 09:15 02/14/20 09:14 DC Neostigmine [place] (Neostigmine Methylsulfate) 5 mg STK-MED ONCE 02/13/20 08:36 02/13/20 08:36 DC Ondansetron HCl (Zofran) 4 mg PRN Q6HRS PRN 02/13/20 09:15 02/14/20 09:14 DC Oxycodone/ Acetaminophen (Percocet 5/325) 1 tab PRN Q4HRS PRN 02/12/20 17:45 02/17/20 19:47 1 TAB Phenylephrine HCl (PHENYLEPHRINE in 0.9% NACL PF) 1 mg STK-MED ONCE 02/13/20 09:27 02/13/20 09:28 DC Piperacillin Sod/ Tazobactam Sod 3.375 gm/Sodium Chloride 50 ml @ 100 mls/hr Q6HRS 02/12/20 18:00 5/26/20 07:42 100 MLS/HR Piperacillin Sod/ Tazobactam Sod 4.5 gm/Sodium Chloride 100 ml @ 200 mls/hr 1X ONCE 02/12/20 13:00 02/12/20 13:29 DC 02/12/20 13:54 200 MLS/HR Potassium Chloride/Water 100 ml @ 100 mls/hr Q1H 02/18/20 11:30 02/18/20 13:29 DC 02/18/20 16:38 100 MLS/HR Potassium Chloride (Klor-Con) 40 meq 1X ONCE 02/18/20 11:30 02/18/20 11:37 DC 02/18/20 12:52 40 MEQ Prochlorperazine Edisylate (Compazine) 5 mg PACU PRN PRN 02/13/20 09:15 02/14/20 09:14 DC Ringer's Solution 1,000 ml @ 125 mls/hr Q8H 02/17/20 10:15 02/17/20 10:16 DC Rocuronium [place] (Zemuron) 50 mg STK-MED ONCE 02/13/20 08:36 02/13/20 08:36 DC Sevoflurane (Ultane) 60 ml STK-MED ONCE 02/13/20 08:36 02/13/20 08:36 DC Sodium Chloride 1,000 ml @ 100 mls/hr Q10H 02/17/20 10:15 02/19/20 11:19 100 MLS/HR Succinylcholine Chloride (Anectine) 200 mg STK-MED ONCE 02/13/20 08:37 02/13/20 08:38 DC Vancomycin HCl 1.25 gm/Sodium Chloride 250 ml @ 166.667 mls/hr 1X ONCE 02/12/20 13:15 02/12/20 14:44 DC 02/12/20 14:33 166.667 MLS/HR Vancomycin HCl 2 gm/Sodium Chloride 500 ml @ 250 mls/hr 1X ONCE 02/12/20 13:00 02/12/20 14:59 UNV Labs: Lab Laboratory Tests Test 02/18/20 16:55 02/18/20 19:14 02/19/20 07:39 02/19/20 11:20 Glucose (Fingerstick) 72 mg/dL (70-99) 239 mg/dL (70-99) 202 mg/dL (70-99) 197 mg/dL (70-99) Micro RUN DATE: 02/15/20 [facility] *LIVE* PAGE 1 RUN TIME: 1033 Specimen Inquiry PATIENT: MARIA LUISA MANLEY ACCT: [id number] LOC: [address] [place] [address] U: [id number] AGE/SX: 64/M ROOM: [facility] RE02/12/[address]: PAPITO HERNANDEZ III, DO : 1955 BED: 1 DIS: STATUS: ADM IN TLOC: SPEC #: [id number] EULALIA: 02/13/20 STATUS: RES REQ #: [id number] RECD: 02/13/20-[address]: PAPITO HERNANDEZ III, DO SOURCE: DRAINAGE ENTR: 02/13/20-[address]: BRIANA SANTANA MD SPDESC: KB SYED MD, KATHLEEN R MD ORDERED: ANAER/AEREMANI/KAREN COMMENTS: LEFT GLUTEAL ABSCESS Procedure Result GRAM STAIN Final Final GRAM POSITIVE COCCI:FEW SQUAMOUS EPI CELL:NONE SEEN PMN (WBCs):RARE Unless otherwise specified, Testing Performed by: [address] [id number] For Inquires, the Physician may contact the Microbiology department at [phone] ANAEROBIC-AEROBIC CULTURE Preliminary Preliminary MODERATE GRAM POSITIVE COCCI on 02/14/20 at 1040 FINAL ID= [STAPHYLOCOCCUS AUREUS] STAPHYLOCOCCUS AUREUS ANTIMICROBIAL SUSCEPTIBILITY Preliminary Comment POS SANJUANITA TYPE 38 STAPHYLOCOCCUS AUREUS ANTIBIOTIC RESULT INTERPRETATION AZITHROMYCIN <=2 S CLINDAMYCIN 0.5 S CEFOXITIN SCREEN <=4 NEG CIPROFLOXACIN >2 R CEFTAROLINE <=0.5 S DAPTOMYCIN <=0.5 S ERYTHROMYCIN 0.5 S GENTAMICIN <=4 S LINEZOLID 2 S LEVOFLOXACIN 4 I OXACILLIN <=0.25 S PENICILLIN <=0.03 Renard RIFAMPIN <=1 S TRIMETHOPRIM/SULFAMETHOXAZOLE <=0.5/9.5 S TETRACYCLINE <=4 S CONTINUED ON NEXT PAGE RUN DATE: 02/15/20 [facility] *LIVE* PAGE 2 RUN TIME: 1033 Specimen Inquiry SPEC: [id number] PATIENT: MARIA LUISA MANLEY [id number] (Continued) ------- ----- Procedure Result ANTIMICROBIAL SUSCEPTIBILITY Preliminary (continued) VANCOMYCIN 1 S Unless otherwise specified, Testing Performed by: [address] [id number] For Inquires, the Physician may contact the Microbiology department at [phone] Objective: Assessment: 1. Left gluteal abscess, status post I and D, 02/13/2020.cult staph aureus 2. Postop hypotension, status post IV fluid infusion.resolved 3. Leukocytosis. 4. Lactic acidosis. 5. Acute kidney injury. 6. History of right nephrectomy for renal cell carcinoma. 7. Hyponatremia. 8. Diabetes mellitus. 9. Arrhythmia; NSVT . Echo with preserved LV systolic function. Plan: Plan of Care Continue Zosyn for now Transition to Invanz 1 gm first dose here before discharge , today if discharged, discussed with pharmacy Prescription in chart Social work to assist for discharge planning PICC care Anticipate slow response due to close proximity with anal canal and fecal soilage Wound /VAC care as directed Probiotics Q. Tuesday labs CBC, BUN, creatinine, fax results to [phone] Follow-up ID clinic in 2 weeks March 05 at 2;15 pm, phone [phone] Supportive care. Discussed with nursing staff and pharmacy GABY SANTANA MD February 19, 2020 11:31
[2020-02-19] MEDS ORDERED: ERTAPENEM 1GM IVPB (GENERIC) 50 ML IV PRN (12:00)
--- NOTE | 2020-02-19 13:25 | NUR ---
SS following up with discharge planning. SS reviewed pt chart and discussed with pt RN. PT recommended home independent. Pt has wound vac and will need changes. Pt needing IV abx in home or outpatient. Script provided for IV Invanz. SS met with pt and discussed. Pt reported that he would prefer in home IV antibiotics with home healthcare over outpatient infusions. Pt reported that if needed he can get transport for outpatient IV antibiotics but would prefer home. SS phoned and faxed script and demographics to [facility], ; fax [phone]. [facility] to contact SS with benefit information for in home IV infusions. PICC line ordered. SS will continue to follow for discharge planning.
[2020-02-19 14:21] LABS: CALCIUM 7.8 mg/dL (8.5-10.1); CREATININE 1.4 mg/dL (0.7-1.3); GFR 51.4; MAGNESIUM 1.9 mg/dL (1.8-2.4); POTASSIUM 3.2 mmol/L (3.5-5.1)
[2020-02-19 15:02] VITALS: BP 98/56
[2020-02-19] MEDS: oxyCODONE/APAP 5/325 1 TAB TABLET PO PRN (16:03)
--- NOTE | 2020-02-19 16:56 | NUR ---
Wound Care Wound Type/Assessment: Left gluteal abscess, s/p surgical I&D. Dressing and vac foam removed, wound cleaned with saline. Wound bed beefy red with a moderate amount of scattered yellow slough throughout wound bed, periwound dark red, slight odor noted. Pt will benefit from Vac Veraflo to help clean up the wound bed even further. Treatment Recommendations/Plan: Periwound skin prepped with skin prep and ostomy ring applied. 1 piece of amanda waffle foam placed into wound bed, covered by 1 solid amanda piece, foam tracked to R upper thigh, vac showing strong seal at -125 mmHg suction. Veraflo settings are 20 ml of NS every 3 hours for 10 minutes of dwell time. Pt tolerated with moderate amount of pain, pt was premedicated with pain meds first. Education provided: to pt re: benefits of vac Veraflo therapy, f/u in the [facility] after d/c, pt has gotten vac approval from [facility] for home vac, OOP cost is $14/day, pt aware and agreeable. Offloading surface/device: N/A Recommended Referrals/Tests: N/A Discharge Recommendations for dressings: wound vac until depth has filled in.
[2020-02-19] MEDS ORDERED: POTASSIUM CHLORIDE 20 MEQ TABLET.ER. PO ONE (18:00)
[2020-02-19 19:39] VITALS: BP 126/77
--- NOTE | 2020-02-19 22:36 | NUR ---
NS HELD AT 2200. FLUIDS INFUSING
[2020-02-19 23:38] VITALS: BP 140/85
[2020-02-20] MEDS: PIPERACILLIN/TAZOBACTAM 3.375 GM in IV NORMAL SALINE 50ML 50 ML IV SCH ×5 (00:23→23:36)
[2020-02-20] MEDS: IV NORMAL SALINE 1000ML BAG 1,000 ML IV SCH ×3 (02:31→23:43)
[2020-02-20 03:55] VITALS: BP 138/82
[2020-02-20 07:39] VITALS: BP 146/91
[2020-02-20 07:54] LABS: CREATININE 1.2 mg/dL (0.7-1.3); GFR 61.3
[2020-02-20] MEDS: INSULIN LISPRO 300 UNITS/3 ML VIAL. SQ SCH ×6 (08:07→17:11)
--- NOTE | 2020-02-20 08:11 | PDOC ---
PROGRESS NOTES Chief Complaint Chief Complaint Left gluteal abscess; s/p I and D Leukocytosis secondary to the above Lactic acidosis secondary to above mentioned infection History of diabetes type 2 insulin requiring Arrhythmia; NSVT vs aberrant AFIB H/o renal CA s/p nephrectomy Acute renal failure secondary to vasomotor etiology most likely S/P mechanical fall secondary to slipping Hypokalemia Plan: Follow cultures Continue broad spectrum antibiotics Continue wound VAC care follow recommendations from senior business consultant Discharge once arrangements for outpatient antibiotic therapy and wound VAC care has been arranged by case management History of Present Illness History of Present Illness Mr Smith is a 64yo M [employer] w/ PMHx Diabetes, hypertension, gastroparesis, renal cell carcinoma, status post right nephrectomy, history of CVA, peripheral neuropathy, history of Strep intermedius bacteremia in 02/2019, left fifth metatarsal osteomyelitis or joint infection and abscess, status post I and D and partial ray amputation who presented to the ED with gluteal pain starting 2 days prior to admission. Was septic with SHA. CT abdomen and pelvic CT showed fat stranding and soft tissue thickening along the intergluteal cleft on the left with a vague area of hypoattenuation just deep to the skin may be poorly formed or developing abscess. This measures about 5 x 2 x 4 cm in size and extends towards the perineum. No definite perianal or perirectal abscess. Surgery consulted for left gluteal abscess with I and D and drainage with debridement. ID consulted as well. 02/16: K 2.9 02/17: Afebrile overnight, K 2.9. 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 He is learning how to have a bowel movement feels like he is able to keep his wound site clean. Pain reasonably controlled. No SOB or CP. 02/18: Afebrile. Pain well controlled 2/10. Tolerating wound vac well K4, CR 1.2, pain well controlled. Afebrile, no SOB or CP. Able to transition with assistance well now. Will need a final wound VAC change prior to discharge and home infusions of Invanz. Plan: Discharge home 02/21/2020 Transition to Invanz 1 gm first dose here before discharge ,discussed with pharmacy per ID, will continue Invanz for at least 2 weeks PICC shelter health, home infusions. Wound clinic visits 1-3 times weekly Wound /VAC care as directed Probiotics Q. Tuesday labs CBC, BUN, creatinine, fax results to [phone] Follow-up ID clinic in 2 weeks March 05 at 2;15 pm, phone [phone] Vitals Vitals Vital Signs Date Time Temp Pulse Resp B/P (MAP) Pulse Ox O2 Delivery O2 Flow Rate FiO2 02/20/20 07:39 98.6 74 18 146/91 (109) 97 Room Air 98.6 Physical Exam Physical Exam GENERAL: Lying on prone, alert in NAD HEENT: Oral cavity clear, no thrush NECK: Supple LUNGS: Clear bilaterally. HEART: S1, S2 regular. ABDOMEN: Left gluteal wound wound vac in place, no area redness or induration EXTREMITIES: No edema. SKIN: without rash. NEUROLOGIC: Alert and oriented x 3, grossly nonfocal. PSYCHIATRIC: Cooperative, appropriate mood and affect RUE-PICC (02/15) without signs of complications General: Alert, Oriented X3, Cooperative, mild distress Heart: Regular rate, Normal S1, Normal S2 Lungs: Clear Abdomen: Soft, No tenderness Extremities: No edema, Normal pulses Skin: Other (Wounds dressed) Labs LABS Laboratory Tests Test 02/19/20 11:20 02/19/20 13:45 02/19/20 16:24 02/19/20 20:37 Glucose (Fingerstick) 197 mg/dL (70-99) 80 mg/dL (70-99) 255 mg/dL (70-99) Sodium Level 141 mmol/L (136-145) Potassium Level 3.2 mmol/L (3.5-5.1) Chloride Level 104 mmol/L (98-107) Carbon Dioxide Level 28 mmol/L (21-32) Anion Gap 9 (6-14) Blood Urea Nitrogen 9 mg/dL (8-26) Creatinine 1.4 mg/dL (0.7-1.3) Estimated GFR (Cockcroft-Gault) 51.4 Glucose Level 165 mg/dL (70-99) Calcium Level 7.8 mg/dL (8.5-10.1) Magnesium Level 1.9 mg/dL (1.8-2.4) Test 02/20/20 06:00 02/20/20 07:21 Sodium Level 137 mmol/L (136-145) Potassium Level 4.0 mmol/L (3.5-5.1) Chloride Level 102 mmol/L (98-107) Carbon Dioxide Level 33 mmol/L (21-32) Anion Gap 2 (6-14) Blood Urea Nitrogen 14 mg/dL (8-26) Creatinine 1.2 mg/dL (0.7-1.3) Estimated GFR (Cockcroft-Gault) 61.3 Glucose Level 252 mg/dL (70-99) Calcium Level 8.0 mg/dL (8.5-10.1) Glucose (Fingerstick) 209 mg/dL (70-99) Assessment and Plan Assessmemt and Plan Problems Medical Problems: (1) Gluteal abscess Status: Acute (2) Severe sepsis Status: Acute Comment Review of Relevant I have reviewed the following items antonio (where applicable) has been applied. Labs Laboratory Tests Test 02/18/20 10:54 02/18/20 11:13 02/18/20 16:55 02/18/20 19:14 Sodium Level 140 mmol/L (136-145) Potassium Level 2.9 mmol/L (3.5-5.1) Chloride Level 105 mmol/L (98-107) Carbon Dioxide Level 29 mmol/L (21-32) Anion Gap 6 (6-14) Blood Urea Nitrogen 8 mg/dL (8-26) Creatinine 1.2 mg/dL (0.7-1.3) Estimated GFR (Cockcroft-Gault) 61.3 Glucose Level 196 mg/dL (70-99) Calcium Level 7.7 mg/dL (8.5-10.1) Magnesium Level 1.6 mg/dL (1.8-2.4) Glucose (Fingerstick) 170 mg/dL (70-99) 72 mg/dL (70-99) 239 mg/dL (70-99) Test 02/19/20 07:39 02/19/20 11:20 02/19/20 13:45 02/19/20 16:24 Glucose (Fingerstick) 202 mg/dL (70-99) 197 mg/dL (70-99) 80 mg/dL (70-99) Sodium Level 141 mmol/L (136-145) Potassium Level 3.2 mmol/L (3.5-5.1) Chloride Level 104 mmol/L (98-107) Carbon Dioxide Level 28 mmol/L (21-32) Anion Gap 9 (6-14) Blood Urea Nitrogen 9 mg/dL (8-26) Creatinine 1.4 mg/dL (0.7-1.3) Estimated GFR (Cockcroft-Gault) 51.4 Glucose Level 165 mg/dL (70-99) Calcium Level 7.8 mg/dL (8.5-10.1) Magnesium Level 1.9 mg/dL (1.8-2.4) Test 02/19/20 20:37 02/20/20 06:00 02/20/20 07:21 Glucose (Fingerstick) 255 mg/dL (70-99) 209 mg/dL (70-99) Sodium Level 137 mmol/L (136-145) Potassium Level 4.0 mmol/L (3.5-5.1) Chloride Level 102 mmol/L (98-107) Carbon Dioxide Level 33 mmol/L (21-32) Anion Gap 2 (6-14) Blood Urea Nitrogen 14 mg/dL (8-26) Creatinine 1.2 mg/dL (0.7-1.3) Estimated GFR (Cockcroft-Gault) 61.3 Glucose Level 252 mg/dL (70-99) Calcium Level 8.0 mg/dL (8.5-10.1) Laboratory Tests Test 02/19/20 11:20 02/19/20 13:45 02/19/20 16:24 02/19/20 20:37 Glucose (Fingerstick) 197 mg/dL (70-99) 80 mg/dL (70-99) 255 mg/dL (70-99) Sodium Level 141 mmol/L (136-145) Potassium Level 3.2 mmol/L (3.5-5.1) Chloride Level 104 mmol/L (98-107) Carbon Dioxide Level 28 mmol/L (21-32) Anion Gap 9 (6-14) Blood Urea Nitrogen 9 mg/dL (8-26) Creatinine 1.4 mg/dL (0.7-1.3) Estimated GFR (Cockcroft-Gault) 51.4 Glucose Level 165 mg/dL (70-99) Calcium Level 7.8 mg/dL (8.5-10.1) Magnesium Level 1.9 mg/dL (1.8-2.4) Test 02/20/20 06:00 02/20/20 07:21 Sodium Level 137 mmol/L (136-145) Potassium Level 4.0 mmol/L (3.5-5.1) Chloride Level 102 mmol/L (98-107) Carbon Dioxide Level 33 mmol/L (21-32) Anion Gap 2 (6-14) Blood Urea Nitrogen 14 mg/dL (8-26) Creatinine 1.2 mg/dL (0.7-1.3) Estimated GFR (Cockcroft-Gault) 61.3 Glucose Level 252 mg/dL (70-99) Calcium Level 8.0 mg/dL (8.5-10.1) Glucose (Fingerstick) 209 mg/dL (70-99) Microbiology 02/13/20 Gram Stain - Final, Complete 02/13/20 Aerobic and Anaerobic Culture - Final, Complete 02/13/20 Antimicrobic Susceptibility - Final, Complete 02/12/20 Blood Culture - Final, Complete NO GROWTH AFTER 5 DAYS Medications Current Medications Morphine Sulfate (Morphine Sulfate) 4 mg PRN Q15MIN PRN IV/SQ PAIN GREATER THAN 3/10 Last administered on 02/12/20at 12:31; Start 02/12/20 at 12:00; Stop 02/12/20 at 17:37; Status DC Sodium Chloride 1,000 ml @ 1,000 mls/hr Q1H IV Last administered on 02/12/20at 12:31; Start 02/12/20 at 11:58; Stop 02/12/20 at 12:57; Status DC Vancomycin HCl 2 gm/Sodium Chloride 500 ml @ 250 mls/hr 1X ONCE IV ; Start 02/12/20 at 13:00; Stop 02/12/20 at 14:59; Status UNV Piperacillin Sod/ Tazobactam Sod 4.5 gm/Sodium Chloride 100 ml @ 200 mls/hr 1X ONCE IV Last administered on 02/12/20at 13:54; Start 02/12/20 at 13:00; Stop 02/12/20 at 13:29; Status DC Vancomycin HCl 1.25 gm/Sodium Chloride 250 ml @ 166.667 mls/hr 1X ONCE IV Last administered on 02/12/20at 14:33; Start 02/12/20 at 13:15; Stop 02/12/20 at 14:44; Status DC Iohexol (Omnipaque 300 Mg/ml) 60 ml 1X ONCE IV Last administered on 02/12/20at 13:09; Start 02/12/20 at 13:15; Stop 02/12/20 at 13:16; Status DC Sodium Chloride 1,000 ml @ 1,000 mls/hr 1X ONCE IV Last administered on 02/12/20at 14:08; Start 02/12/20 at 14:00; Stop 02/12/20 at 14:59; Status DC Sodium Chloride 500 ml @ 500 mls/hr 1X ONCE IV Last administered on 02/12/20at 14:09; Start 02/12/20 at 14:00; Stop 02/12/20 at 14:59; Status DC Ondansetron HCl (Zofran) 4 mg PRN Q8HRS PRN IV NAUSEA/VOMITING; Start 02/12/20 at 15:15; Stop 02/13/20 at 15:14; Status DC Morphine Sulfate (Morphine Sulfate) 4 mg PRN Q2HR PRN IV PAIN Last administered on 02/13/20at 01:36; Start 02/12/20 at 15:15; Stop 02/13/20 at 15:14; Status DC Insulin Human Regular (HumuLIN R VIAL) 8 unit 1X ONCE IV Last administered on 02/12/20at 16:02; Start 02/12/20 at 15:45; Stop 02/12/20 at 15:46; Status DC Sodium Chloride 1,000 ml @ 100 mls/hr Q10H IV Last administered on 02/17/20at 06:25; Start 02/12/20 at 17:30; Stop 02/17/20 at 10:11; Status DC Piperacillin Sod/ Tazobactam Sod 3.375 gm/Sodium Chloride 50 ml @ 100 mls/hr Q6HRS IV Last administered on 02/20/20at 05:20; Start 02/12/20 at 18:00 Oxycodone/ Acetaminophen (Percocet 5/325) 1 tab PRN Q4HRS PRN PO PAIN Last administered on 02/19/20at 16:03; Start 02/12/20 at 17:45 Insulin Human Lispro (HumaLOG) 8 units TIDAC SQ Last administered on 02/13/20at 18:13; Start 02/13/20 at 07:30; Stop 02/14/20 at 08:55; Status DC Insulin Glargine (Lantus Syringe) 25 unit QHS SQ Last administered on 02/13/20at 21:23; Start 02/12/20 at 21:00; Stop 02/14/20 at 08:07; Status DC Glycopyrrolate (Robinul) 1 mg STK-MED ONCE .ROUTE ; Start 02/13/20 at 08:36; Stop 02/13/20 at 08:36; Status DC Sevoflurane (Ultane) 60 ml STK-MED ONCE IH ; Start 02/13/20 at 08:36; Stop 02/13/20 at 08:36; Status DC Rocuronium [place] (Zemuron) 50 mg STK-MED ONCE .ROUTE ; Start 02/13/20 at 08:36; Stop 02/13/20 at 08:36; Status DC Fentanyl Citrate (Fentanyl 2ml Vial) 100 mcg STK-MED ONCE .ROUTE ; Start 02/13/20 at 08:36; Stop 02/13/20 at 08:36; Status DC Neostigmine [place] (Neostigmine Methylsulfate) 5 mg STK-MED ONCE .ROUTE ; Start 02/13/20 at 08:36; Stop 02/13/20 at 08:36; Status DC Midazolam HCl (Versed) 2 mg STK-MED ONCE .ROUTE ; Start 02/13/20 at 08:36; Stop 02/13/20 at 08:37; Status DC Succinylcholine Chloride (Anectine) 200 mg STK-MED ONCE .ROUTE ; Start 02/13/20 at 08:37; Stop 02/13/20 at 08:38; Status DC Bupivacaine HCl/ Epinephrine Bitart (Sensorcain-Epi 0.5%-1:480255 Mpf) 30 ml STK-MED ONCE .ROUTE ; Start 02/13/20 at 08:54; Stop 02/13/20 at 08:54; Status DC Ondansetron HCl (Zofran) 4 mg PRN Q6HRS PRN IV NAUSEA/VOMITING; Start 02/13/20 at 09:15; Stop 02/14/20 at 09:14; Status DC Fentanyl Citrate (Fentanyl 2ml Vial) 25 mcg PRN Q5MIN PRN IV MILD PAIN 1-3; Start 02/13/20 at 09:15; Stop 02/14/20 at 09:14; Status DC Fentanyl Citrate (Fentanyl 2ml Vial) 50 mcg PRN Q5MIN PRN IV MODERATE TO SEVERE PAIN; Start 02/13/20 at 09:15; Stop 02/14/20 at 09:14; Status DC Morphine Sulfate (Morphine Sulfate) 1 mg PRN Q10MIN PRN IV SEVERE PAIN 7-10; Start 02/13/20 at 09:15; Stop 02/14/20 at 09:14; Status DC Ringer's Solution 1,000 ml @ 30 mls/hr Q24H IV Last administered on 02/13/20at 09:01; Start 02/13/20 at 09:01; Stop 02/13/20 at 21:00; Status DC Lidocaine HCl (Xylocaine-Mpf 1% 2ml Vial) 2 ml PRN 1X PRN ID PRIOR TO IV START; Start 02/13/20 at 09:15; Stop 02/14/20 at 09:14; Status DC Hydromorphone HCl (Dilaudid) 0.5 mg PRN Q10MIN PRN IV SEV PAIN, Second choice; Start 02/13/20 at 09:15; Stop 02/14/20 at 09:14; Status DC Prochlorperazine Edisylate (Compazine) 5 mg PACU PRN PRN IV NAUSEA, MRX1; Start 02/13/20 at 09:15; Stop 02/14/20 at 09:14; Status DC Phenylephrine HCl (PHENYLEPHRINE in 0.9% NACL PF) 1 mg STK-MED ONCE IV ; Start 02/13/20 at 09:27; Stop 02/13/20 at 09:28; Status DC Insulin Human Lispro (HumaLOG VIAL for OP,RR ONLY) 0-10 units PRN Q1HR PRN SQ PER PROTOCOL Last administered on 02/13/20at 10:30; Start 02/13/20 at 10:30; Stop 02/13/20 at 19:00; Status DC Daptomycin 520 mg/ Sodium Chloride 50 ml @ 100 mls/hr Q24H IV Last administered on 02/15/20at 14:35; Start 02/13/20 at 14:00; Stop 02/16/20 at 09:25; Status DC Insulin Human Lispro (HumaLOG) 8 units 1X ONCE SQ Last administered on 02/13/20at 21:24; Start 02/13/20 at 21:30; Stop 02/13/20 at 21:31; Status DC Insulin Glargine (Lantus Syringe) 15 unit BID SQ ; Start 02/14/20 at 09:00; Stop 02/14/20 at 08:55; Status DC Insulin Glargine (Lantus Syringe) 20 unit BID SQ Last administered on 02/19/20at 20:55; Start 02/14/20 at 09:00 Insulin Human Lispro (HumaLOG) 10 units TIDAC SQ Last administered on 02/20/20at 08:08; Start 02/14/20 at 11:30 Potassium Chloride (Klor-Con) 20 meq 1X ONCE PO Last administered on 02/14/20at 13:00; Start 02/14/20 at 11:30; Stop 02/14/20 at 11:37; Status DC Insulin Human Lispro (HumaLOG) 2 units 1X ONCE SQ Last administered on 02/14/20at 18:36; Start 02/14/20 at 17:30; Stop 02/14/20 at 17:31; Status DC Lactobacillus Rhamnosus (Culturelle) 1 cap BID PO Last administered on 02/19/20at 20:54; Start 02/14/20 at 21:00 Insulin Human Lispro (HumaLOG) 12 units ONCE ONCE SQ Last administered on 02/14/20at 20:14; Start 02/14/20 at 20:00; Stop 02/14/20 at 20:01; Status DC Insulin Human Lispro (HumaLOG) 0-7 UNITS TIDWMEALS SQ Last administered on 01/25 04/14at 08:07; Start 02/15/20 at 08:00 Dextrose (Dextrose 50%-Water Syringe) 12.5 gm PRN Q15MIN PRN IV SEE COMMENTS; Start 02/14/20 at 20:00 Ringer's Solution 1,000 ml @ 125 mls/hr Q8H IV ; Start 02/17/20 at 10:15; Stop 02/17/20 at 10:16; Status DC Sodium Chloride 1,000 ml @ 100 mls/hr Q10H IV Last administered on 02/20/20at 02:31; Start 02/17/20 at 10:15 Potassium Chloride/Water 100 ml @ 100 mls/hr Q1H IV Last administered on 02/17/20at 14:00; Start 02/17/20 at 11:00; Stop 02/17/20 at 14:59; Status DC Potassium Chloride/Water 100 ml @ 100 mls/hr Q1H IV Last administered on 02/18/20at 16:38; Start 02/18/20 at 11:30; Stop 02/18/20 at 13:29; Status DC Potassium Chloride (Klor-Con) 40 meq 1X ONCE PO Last administered on 02/18/20at 12:52; Start 02/18/20 at 11:30; Stop 02/18/20 at 11:37; Status DC Magnesium Sulfate 50 ml @ 25 mls/hr 1X ONCE IV Last administered on 02/18/20at 16:39; Start 02/18/20 at 15:30; Stop 02/18/20 at 17:29; Status DC Ertapenem 50 ml @ 100 mls/hr PRN 1X PRN IV GIVE PRIOR TO DC; Start 02/19/20 at 12:00; Stop 02/20/20 at 18:00 Potassium Chloride (Klor-Con) 40 meq 1X ONCE PO Last administered on 02/19/20at 17:54; Start 02/19/20 at 18:00; Stop 02/19/20 at 18:01; Status DC Active Scripts Active Percocet 5-325 Mg Tablet (Oxycodone/Acetaminophen) 1 Each Tablet 1 Tab PO PRN Q4HRS PRN 7 Days Reported Novolog (Insulin Aspart) 100 Unit/1 Ml Cartridge 8 Unit SQ TIDAC Lantus Solostar (Insulin Glargine,Hum.rec.anlog) 100 Unit/1 Ml Insuln.pen 25 Unit SQ QHS Vitals/I & O Vital Sign - Last 24 Hours 02/19/20 02/19/20 02/19/20 02/19/20 11:01 15:02 16:03 17:05 Temp 98.5 98.8 98.5 98.8 Pulse 96 75 Resp 16 15 19 49 B/P (MAP) 104/75 (85) 98/56 (70) Pulse Ox 93 95 95 95 O2 Delivery Room Air Room Air Room Air Room Air 02/19/20 02/19/20 02/19/20 02/20/20 19:39 20:02 23:38 03:55 Temp 98.7 98.5 98.9 98.7 98.5 98.9 Pulse 85 89 82 Resp 16 16 16 B/P (MAP) 126/77 (93) 140/85 (103) 138/82 (100) Pulse Ox 94 95 95 O2 Delivery Room Air Room Air Room Air Room Air 02/20/20 07:39 Temp 98.6 98.6 Pulse 74 Resp 18 B/P (MAP) 146/91 (109) Pulse Ox 97 O2 Delivery Room Air Intake and Output 02/19/20 02/19/20 02/20/20 15:00 23:00 07:00 Intake Total 400 ml 1053 ml Output Total 0 ml Balance 400 ml 1053 ml PAPITO PAGE MD February 20, 2020 08:11
--- NOTE | 2020-02-20 08:33 | PDOC ---
Infectious Disease Note Subjective: Subjective Patient feels much better Underwent dressing change yesterday Denies F/C/N/V/D Vital Signs: Vital Signs Vital Signs Date Time Temp Pulse Resp B/P (MAP) Pulse Ox O2 Delivery O2 Flow Rate FiO2 02/20/20 07:39 98.6 74 18 146/91 (109) 97 Room Air 98.6 Physical Exam: PHYSICAL EXAM GENERAL: Lying on prone, alert in NAD HEENT: Oral cavity clear, no thrush NECK: Supple LUNGS: Clear bilaterally. HEART: S1, S2 regular. ABDOMEN: Left gluteal wound wound vac in place, no area redness or induration EXTREMITIES: No edema. SKIN: without rash. NEUROLOGIC: Alert and oriented x 3, grossly nonfocal. PSYCHIATRIC: Cooperative, appropriate mood and affect RUE-PICC (02/15) without signs of complications Medications: Inpatient Meds: Current Medications Medications (Trade) Dose Ordered Sig/Ty Start Time Stop Time Status Last Admin Dose Admin Bupivacaine HCl/ Epinephrine Bitart (Sensorcain-Epi 0.5%-1:955281 Mpf) 30 ml STK-MED ONCE 02/13/20 08:54 02/13/20 08:54 DC Daptomycin 520 mg/ Sodium Chloride 50 ml @ 100 mls/hr Q24H 02/13/20 14:00 02/16/20 09:25 DC 02/15/20 14:35 100 MLS/HR Dextrose (Dextrose 50%-Water Syringe) 12.5 gm PRN Q15MIN PRN 02/14/20 20:00 Ertapenem 50 ml @ 100 mls/hr PRN 1X PRN 02/19/20 12:00 02/20/20 18:00 Fentanyl Citrate (Fentanyl 2ml Vial) 50 mcg PRN Q5MIN PRN 02/13/20 09:15 02/14/20 09:14 DC Glycopyrrolate (Robinul) 1 mg STK-MED ONCE 02/13/20 08:36 02/13/20 08:36 DC Hydromorphone HCl (Dilaudid) 0.5 mg PRN Q10MIN PRN 02/13/20 09:15 02/14/20 09:14 DC Insulin Glargine (Lantus Syringe) 20 unit BID 02/14/20 09:00 02/19/20 20:55 20 UNIT Insulin Human Lispro (HumaLOG VIAL for OP,RR ONLY) 0-10 units PRN Q1HR PRN 02/13/20 10:30 02/13/20 19:00 DC 02/13/20 10:30 8 UNIT Insulin Human Lispro (HumaLOG) 0-7 UNITS TIDWMEALS 02/15/20 08:00 02/20/20 08:07 4 UNITS Insulin Human Regular (HumuLIN R VIAL) 8 unit 1X ONCE 02/12/20 15:45 02/12/20 15:46 DC 02/12/20 16:02 5 UNIT Iohexol (Omnipaque 300 Mg/ml) 60 ml 1X ONCE 02/12/20 13:15 02/12/20 13:16 DC 02/12/20 13:09 60 ML Lactobacillus Rhamnosus (Culturelle) 1 cap BID 02/14/20 21:00 02/19/20 20:54 1 CAP Lidocaine HCl (Xylocaine-Mpf 1% 2ml Vial) 2 ml PRN 1X PRN 02/13/20 09:15 02/14/20 09:14 DC Magnesium Sulfate 50 ml @ 25 mls/hr 1X ONCE 02/18/20 15:30 02/18/20 17:29 DC 02/18/20 16:39 25 MLS/HR Midazolam HCl (Versed) 2 mg STK-MED ONCE 02/13/20 08:36 02/13/20 08:37 DC Morphine Sulfate (Morphine Sulfate) 1 mg PRN Q10MIN PRN 02/13/20 09:15 02/14/20 09:14 DC Neostigmine [place] (Neostigmine Methylsulfate) 5 mg STK-MED ONCE 02/13/20 08:36 02/13/20 08:36 DC Ondansetron HCl (Zofran) 4 mg PRN Q6HRS PRN 02/13/20 09:15 02/14/20 09:14 DC Oxycodone/ Acetaminophen (Percocet 5/325) 1 tab PRN Q4HRS PRN 02/12/20 17:45 02/19/20 16:03 1 TAB Phenylephrine HCl (PHENYLEPHRINE in 0.9% NACL PF) 1 mg STK-MED ONCE 02/13/20 09:27 02/13/20 09:28 DC Piperacillin Sod/ Tazobactam Sod 3.375 gm/Sodium Chloride 50 ml @ 100 mls/hr Q6HRS 02/12/20 18:00 02/20/20 05:20 100 MLS/HR Piperacillin Sod/ Tazobactam Sod 4.5 gm/Sodium Chloride 100 ml @ 200 mls/hr 1X ONCE 02/12/20 13:00 02/12/20 13:29 DC 02/12/20 13:54 200 MLS/HR Potassium Chloride/Water 100 ml @ 100 mls/hr Q1H 02/18/20 11:30 02/18/20 13:29 DC 02/18/20 16:38 100 MLS/HR Potassium Chloride (Klor-Con) 40 meq 1X ONCE 02/19/20 18:00 02/19/20 18:01 DC 02/19/20 17:54 40 MEQ Prochlorperazine Edisylate (Compazine) 5 mg PACU PRN PRN 02/13/20 09:15 02/14/20 09:14 DC Ringer's Solution 1,000 ml @ 125 mls/hr Q8H 02/17/20 10:15 02/17/20 10:16 DC Rocuronium [place] (Zemuron) 50 mg STK-MED ONCE 02/13/20 08:36 02/13/20 08:36 DC Sevoflurane (Ultane) 60 ml STK-MED ONCE 02/13/20 08:36 02/13/20 08:36 DC Sodium Chloride 1,000 ml @ 100 mls/hr Q10H 02/17/20 10:15 02/20/20 02:31 100 MLS/HR Succinylcholine Chloride (Anectine) 200 mg STK-MED ONCE 02/13/20 08:37 02/13/20 08:38 DC Vancomycin HCl 1.25 gm/Sodium Chloride 250 ml @ 166.667 mls/hr 1X ONCE 02/12/20 13:15 02/12/20 14:44 DC 02/12/20 14:33 166.667 MLS/HR Vancomycin HCl 2 gm/Sodium Chloride 500 ml @ 250 mls/hr 1X ONCE 02/12/20 13:00 02/12/20 14:59 UNV Labs: Lab Laboratory Tests Test 02/19/20 11:20 02/19/20 13:45 02/19/20 16:24 02/19/20 20:37 Glucose (Fingerstick) 197 mg/dL (70-99) 80 mg/dL (70-99) 255 mg/dL (70-99) Sodium Level 141 mmol/L (136-145) Potassium Level 3.2 mmol/L (3.5-5.1) Chloride Level 104 mmol/L (98-107) Carbon Dioxide Level 28 mmol/L (21-32) Anion Gap 9 (6-14) Blood Urea Nitrogen 9 mg/dL (8-26) Creatinine 1.4 mg/dL (0.7-1.3) Estimated GFR (Cockcroft-Gault) 51.4 Glucose Level 165 mg/dL (70-99) Calcium Level 7.8 mg/dL (8.5-10.1) Magnesium Level 1.9 mg/dL (1.8-2.4) Test 02/20/20 06:00 02/20/20 07:21 Sodium Level 137 mmol/L (136-145) Potassium Level 4.0 mmol/L (3.5-5.1) Chloride Level 102 mmol/L (98-107) Carbon Dioxide Level 33 mmol/L (21-32) Anion Gap 2 (6-14) Blood Urea Nitrogen 14 mg/dL (8-26) Creatinine 1.2 mg/dL (0.7-1.3) Estimated GFR (Cockcroft-Gault) 61.3 Glucose Level 252 mg/dL (70-99) Calcium Level 8.0 mg/dL (8.5-10.1) Glucose (Fingerstick) 209 mg/dL (70-99) Micro RUN DATE: 02/15/20 [facility] LAB *LIVE* PAGE 1 RUN TIME: 1033 Specimen Inquiry PATIENT: MARIA ULISA MANLEY ACCT: [id number] LOC: [address] [place] [address] U: [id number] AGE/SX: 64/M ROOM: 663 RE02/12/[address]: PAPITO HERNANDEZ III, DO : 1955 BED: 1 DIS: STATUS: ADM IN TLOC: SPEC #: [id number] EULALIA: 02/13/20 STATUS: RES REQ #: [id number] RECD: 02/13/20-[address]: PAPITO HERNANDEZ III, DO SOURCE: DRAINAGE ENTR: 02/13/[address]: BRIANA [facility]ANTANA [facility] KB MCMANUS MD, KATHLEEN R MD ORDERED: ALEX/KHANH/KAREN COMMENTS: LEFT GLUTEAL ABSCESS Procedure Result GRAM STAIN Final Final GRAM POSITIVE COCCI:FEW SQUAMOUS EPI CELL:NONE SEEN PMN (WBCs):RARE Unless otherwise specified, Testing Performed by: [facility] [address] [place] [address] For Inquires, the Physician may contact the Microbiology department at [phone] ANAEROBIC-AEROBIC CULTURE Preliminary Preliminary MODERATE GRAM POSITIVE COCCI on 02/14/20 at 1040 FINAL ID= [STAPHYLOCOCCUS AUREUS] STAPHYLOCOCCUS AUREUS ANTIMICROBIAL SUSCEPTIBILITY Preliminary Comment POS SANJUANITA TYPE 38 STAPHYLOCOCCUS AUREUS ANTIBIOTIC RESULT INTERPRETATION AZITHROMYCIN <=2 S CLINDAMYCIN 0.5 S CEFOXITIN SCREEN <=4 NEG CIPROFLOXACIN >2 R CEFTAROLINE <=0.5 S DAPTOMYCIN <=0.5 S ERYTHROMYCIN 0.5 S GENTAMICIN <=4 S LINEZOLID 2 S LEVOFLOXACIN 4 I OXACILLIN <=0.25 S PENICILLIN <=0.03 Renard RIFAMPIN <=1 S TRIMETHOPRIM/SULFAMETHOXAZOLE <=0.5/9.5 S TETRACYCLINE <=4 S CONTINUED ON NEXT PAGE RUN DATE: 02/15/20 [facility] *LIVE* PAGE 2 RUN TIME: 1033 Specimen Inquiry SPEC: [id number] PATIENT: MARIA LUISA MANLEY [id number] (Continued) Procedure Result ANTIMICROBIAL SUSCEPTIBILITY Preliminary (continued) VANCOMYCIN 1 S Unless otherwise specified, Testing Performed by: [address] [address] For Inquires, the Physician may contact the Microbiology department at [phone] Objective: Assessment: 1. Left gluteal abscess, status post I and D, 02/13/2020.cult staph aureus 2. Postop hypotension, status post IV fluid infusion.resolved 3. Leukocytosis. 4. Lactic acidosis. 5. Acute kidney injury. 6. History of right nephrectomy for renal cell carcinoma. 7. Hyponatremia. 8. Diabetes mellitus. 9. Arrhythmia; NSVT . Echo with preserved LV systolic function. Plan: Plan of Care Plans are for discharge home later today per team Transition to Invanz 1 gm first dose here before discharge ,discussed with pharmacy Continue Invanz for at least 2 weeks ,prescription in chart Social work to assist for discharge planning PICC care Anticipate slow response due to close proximity with anal canal and fecal soilage Wound /VAC care as directed Probiotics Q. Tuesday labs CBC, BUN, creatinine, fax results to [phone] Follow-up ID clinic in 2 weeks March 05 at 2;15 pm, phone [phone] Supportive care. Discussed with nursing staff GABY SANTANA MD February 20, 2020 08:32
[2020-02-20] MEDS: LACTOBACILLUS RHAMNOSUS GG 1 CAPSULE. PO SCH ×2 (09:52→21:45)
[2020-02-20] MEDS: INSULIN GLARGINE SYRINGE. SQ SCH ×2 (10:41→21:46)
[2020-02-20 11:08] VITALS: BP 126/78
--- NOTE | 2020-02-20 11:43 | NUR ---
SS following up with discharge planning. [facility] contacted SS and reported that pt will have co-pay of $21.31/day until out of pocket max is met. SS met with pt and discussed. Pt agreeable to in home infusions. SS phoned and faxed additional clinical to [facility] infusion. Pt also agreeable to home healthcare with no preference of company. Referral phoned and faxed to [facility], ; fax [phone], by nurse navigator. Per physician, pt will discharge tomorrow. SS will continue to follow for discharge planning.
[2020-02-20 15:06] VITALS: BP 137/74
[2020-02-20 19:00] VITALS: BP 127/78
[2020-02-20 23:00] VITALS: BP 121/70
[2020-02-21 03:00] VITALS: BP 132/81
[2020-02-21 03:12] LABS: BASO % 1 % (0-3); EOS # 0.4 x10^3/uL (0.0-0.7); EOS % 4 % (0-3); HEMATOCRIT 35.9 % (39.0-53.0); LYMPH # 1.6 x10^3/uL (1.0-4.8); LYMPH % 18 % (24-48); MEAN CORPUSCULAR HEMOGLOBIN 30 pg (25-35); MEAN CORPUSCULAR HGB CONC 33 g/dL (31-37); MEAN CORPUSCULAR VOLUME 89 fL (79-100); MONO # 0.9 x10^3/uL (0.0-1.1); MONO % 10 % (0-9); NEUT # 6.1 x10^3/uL (1.8-7.7); NEUT % 67 % (31-73); PLATELET COUNT 269 x10^3/uL (140-400); RED BLOOD COUNT 4.01 x10^6/uL (4.30-5.70); RED CELL DISTRIBUTION WIDTH 13.7 % (11.5-14.5)
[2020-02-21] MEDS: PIPERACILLIN/TAZOBACTAM 3.375 GM in IV NORMAL SALINE 50ML 50 ML IV SCH ×2 (05:46→12:03)
[2020-02-21 07:00] VITALS: BP 114/76
[2020-02-21] MEDS ORDERED: ERTA1VIA16 IJ (08:09)
--- NOTE | 2020-02-21 08:12 | SNU/HH DC ---
DISCHARGE WITH HOME HEALTH DISCHARGE INFORMATION: Discharge Date: February 21, 2020 Final Diagnosis: Problems Medical Problems: (1) Gluteal abscess Status: Acute (2) Severe sepsis Status: Acute Condition on Discharge: Stable CODE STATUS: Code Status: Full HOME HEALTH: Face to Face: I certify this patient is under my care and that I, or a nurse practitioner or physician's pier master assistant working with me, had a face to face encounter that meets the physician face to face encounter requirements with this patient on 02/21/2020. Medical Complications: DM Custodial For: Diabetic Care, Medication Management RN For Eval/Treatment: Yes Physical Therapy For: Evalulation/Treatment Occupational Therapy For: Evaluation/Treatment Pt Meets Homebound Status: Fatigue w/ amb., Limited distance walking POST DISCHARGE ORDERS: Activity Instructions for Disc: Activity as tolerated, Avoid exertion DIET AFTER DISCHARGE: ADA Wound/Incision Care: Ice to area for comfort CHECKS AFTER DISCHARGE: Checks after discharge: Check blood press - daily, Check blood sugar, ac/hs FOLLOW-UP: Additional Instructions: Transition to Invanz 1 gm first dose here before discharge ,discussed with pharmacy per ID, will continue Invanz for at least 2 weeks PICC assisted health, home infusions. Wound clinic visits 1-3 times weekly Wound /VAC care as directed Probiotics Q. Tuesday labs CBC, BUN, creatinine, fax results to [phone] Follow-up ID clinic in 2 weeks March 05 at 2;15 pm, phone [phone] TREATMENT/EQUIPMENT ORDERS: Infusion Equipment, home use: PICC Line CERTIFICATION STATEMENT: Certification Statement: Certification Statement: Based on the above finding, I certify that this patient is confined to the home and needs intermittent prison care, physical therapy and/or speech therapy, or continues to need occupational therapy.~ This patient is under my care, and I have initiated the establishment of the plan of care.~ This patient will be followed by myself or a community physician who will periodically review the plan of care. Home Meds Active Scripts Ertapenem Sodium (INVANZ) 1 Gm Vial, 1 GM IJ DAILY for Abscess for 14 Days, #14 EACH Prov:PAPITO PAGE MD 02/21/20 Oxycodone/Apap 5-325 (PERCOCET 5-325 MG TABLET ) 1 Each Tablet, 1 TAB PO PRN Q4HRS PRN for PAIN for 7 Days, #30 TAB 0 Refills Prov:LEON CHOW MD 10/23/19 Reported Medications Insulin Aspart (NOVOLOG) 100 Unit/1 Ml Cartridge, 8 UNIT SQ TIDAC for diabetes, EACH 02/12/20 Insulin Glargine,Hum.rec.anlog (LANTUS SOLOSTAR) 100 Unit/1 Ml Insuln.pen, 25 UNIT SQ QHS for diabetes, #15 ML 3 Refills 02/12/20 PAPITO PAGE MD February 21, 2020 08:12
--- NOTE | 2020-02-21 08:13 | PDOC ---
PROGRESS NOTES Chief Complaint Chief Complaint Left gluteal abscess; s/p I and D Leukocytosis secondary to the above Lactic acidosis secondary to above mentioned infection History of diabetes type 2 insulin requiring Arrhythmia; NSVT vs aberrant AFIB H/o renal CA s/p nephrectomy Acute renal failure secondary to vasomotor etiology most likely S/P mechanical fall secondary to slipping Hypokalemia Plan: Follow cultures Continue broad spectrum antibiotics Continue wound VAC care follow recommendations from organizational consultant Discharge once arrangements for outpatient antibiotic therapy and wound VAC care has been arranged by case management Echo: The left ventricle is normal size. The left ventricular systolic function is normal and the ejection fraction is within normal range. The Ejection Fraction is 60-65%. There is borderline to mild concentric left ventricular hypertrophy. Doppler and Color Flow revealed no significant aortic regurgitation. There is no significant aortic valvular stenosis. Doppler and Color-flow revealed trace mitral regurgitation. Doppler and Color Flow revealed trace tricuspid regurgitation with an estimated PAP of 26 mmHg. History of Present Illness History of Present Illness Mr Smith is a 64yo M [employer] [place] [employer] w/ PMHx Diabetes, hypertension, gastroparesis, renal cell carcinoma, status post right nephrectomy, history of CVA, peripheral neuropathy, history of Strep intermedius bacteremia in 02/2019, left fifth metatarsal osteomyelitis or joint infection and abscess, status post I and D and partial ray amputation who presented to the ED with gluteal pain starting 2 days prior to admission. Was septic with SHA. CT abdomen and pelvic CT showed fat stranding and soft tissue thickening along the intergluteal cleft on the left with a vague area of hypoattenuation just deep to the skin may be poorly formed or developing abscess. This measures about 5 x 2 x 4 cm in size and extends towards the perineum. No definite perianal or perirectal abscess. Surgery consulted for left gluteal abscess with I and D and drainage with debridement. ID consulted as well. 02/16: K 2.9 02/17: Afebrile overnight, K 2.9. 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 He is learning how to have a bowel movement feels like he is able to keep his wound site clean. Pain reasonably controlled. No SOB or CP. 02/18: Afebrile. Pain well controlled 2/10. Tolerating wound vac well 02/19: K4, CR 1.2, pain well controlled. Afebrile, no SOB or CP. Able to transition with assistance well now. Will need a final wound VAC change prior to discharge and home infusions of Invanz. Feeling improved today. Awaiting VAC change and debridement. Afebrile, no S OB or CP Plan: Discharge home 02/21/2020 Transition to Invanz 1 gm first dose here before discharge ,discussed with jorden mckeon per ID, will continue Invanz for at least 2 weeks PICC group home health, home infusions. Wound clinic visits 1-3 times weekly Wound /VAC care as directed Probiotics Q. Tuesday labs CBC, BUN, creatinine, fax results to [phone] Follow-up ID clinic in 2 weeks March 05 at 2;15 pm, phone [phone] Vitals Vitals Vital Signs Date Time Temp Pulse Resp B/P (MAP) Pulse Ox O2 Delivery O2 Flow Rate FiO2 02/21/20 03:00 98.9 83 18 132/81 (98) 96 Room Air 98.9 Physical Exam Physical Exam GENERAL: Lying on prone, alert in NAD HEENT: Oral cavity clear, no thrush NECK: Supple LUNGS: Clear bilaterally. HEART: S1, S2 regular. ABDOMEN: Left gluteal wound wound vac in place, no area redness or induration EXTREMITIES: No edema. SKIN: without rash. NEUROLOGIC: Alert and oriented x 3, grossly nonfocal. PSYCHIATRIC: Cooperative, appropriate mood and affect RUE-PICC (02/15) without signs of complications General: Alert, Oriented X3, Cooperative, mild distress Heart: Regular rate, Normal S1, Normal S2 Lungs: Clear Abdomen: Soft, No tenderness Extremities: No edema, Normal pulses Skin: Other (Wounds dressed) Labs LABS Laboratory Tests Test 02/20/20 11:47 02/20/20 16:52 02/21/20 03:00 02/21/20 07:44 Glucose (Fingerstick) 189 mg/dL (70-99) 216 mg/dL (70-99) 161 mg/dL (70-99) White Blood Count 9.0 x10^3/uL (4.0-11.0) Red Blood Count 4.01 x10^6/uL (4.30-5.70) Hemoglobin 12.0 g/dL (13.0-17.5) Hematocrit 35.9 % (39.0-53.0) Mean Corpuscular Volume 89 fL (79-100) Mean Corpuscular Hemoglobin 30 pg (25-35) Mean Corpuscular Hemoglobin Concent 33 g/dL (31-37) Red Cell Distribution Width 13.7 % (11.5-14.5) Platelet Count 269 x10^3/uL (140-400) Neutrophils (%) (Auto) 67 % (31-73) Lymphocytes (%) (Auto) 18 % (24-48) Monocytes (%) (Auto) 10 % (0-9) Eosinophils (%) (Auto) 4 % (0-3) Basophils (%) (Auto) 1 % (0-3) Neutrophils # (Auto) 6.1 x10^3/uL (1.8-7.7) Lymphocytes # (Auto) 1.6 x10^3/uL (1.0-4.8) Monocytes # (Auto) 0.9 x10^3/uL (0.0-1.1) Eosinophils # (Auto) 0.4 x10^3/uL (0.0-0.7) Basophils # (Auto) 0.0 x10^3/uL (0.0-0.2) Assessment and Plan Assessmemt and Plan Problems Medical Problems: (1) Gluteal abscess Status: Acute (2) Severe sepsis Status: Acute Comment Review of Relevant I have reviewed the following items antonio (where applicable) has been applied. Labs Laboratory Tests Test 02/19/20 11:20 02/19/20 13:45 02/19/20 16:24 02/19/20 20:37 Glucose (Fingerstick) 197 mg/dL (70-99) 80 mg/dL (70-99) 255 mg/dL (70-99) Sodium Level 141 mmol/L (136-145) Potassium Level 3.2 mmol/L (3.5-5.1) Chloride Level 104 mmol/L (98-107) Carbon Dioxide Level 28 mmol/L (21-32) Anion Gap 9 (6-14) Blood Urea Nitrogen 9 mg/dL (8-26) Creatinine 1.4 mg/dL (0.7-1.3) Estimated GFR (Cockcroft-Gault) 51.4 Glucose Level 165 mg/dL (70-99) Calcium Level 7.8 mg/dL (8.5-10.1) Magnesium Level 1.9 mg/dL (1.8-2.4) Test 02/20/20 06:00 02/20/20 07:21 02/20/20 11:47 02/20/20 16:52 Sodium Level 137 mmol/L (136-145) Potassium Level 4.0 mmol/L (3.5-5.1) Chloride Level 102 mmol/L (98-107) Carbon Dioxide Level 33 mmol/L (21-32) Anion Gap 2 (6-14) Blood Urea Nitrogen 14 mg/dL (8-26) Creatinine 1.2 mg/dL (0.7-1.3) Estimated GFR (Cockcroft-Gault) 61.3 Glucose Level 252 mg/dL (70-99) Calcium Level 8.0 mg/dL (8.5-10.1) Glucose (Fingerstick) 209 mg/dL (70-99) 189 mg/dL (70-99) 216 mg/dL (70-99) Test 02/21/20 03:00 02/21/20 07:44 White Blood Count 9.0 x10^3/uL (4.0-11.0) Red Blood Count 4.01 x10^6/uL (4.30-5.70) Hemoglobin 12.0 g/dL (13.0-17.5) Hematocrit 35.9 % (39.0-53.0) Mean Corpuscular Volume 89 fL (79-100) Mean Corpuscular Hemoglobin 30 pg (25-35) Mean Corpuscular Hemoglobin Concent 33 g/dL (31-37) Red Cell Distribution Width 13.7 % (11.5-14.5) Platelet Count 269 x10^3/uL (140-400) Neutrophils (%) (Auto) 67 % (31-73) Lymphocytes (%) (Auto) 18 % (24-48) Monocytes (%) (Auto) 10 % (0-9) Eosinophils (%) (Auto) 4 % (0-3) Basophils (%) (Auto) 1 % (0-3) Neutrophils # (Auto) 6.1 x10^3/uL (1.8-7.7) Lymphocytes # (Auto) 1.6 x10^3/uL (1.0-4.8) Monocytes # (Auto) 0.9 x10^3/uL (0.0-1.1) Eosinophils # (Auto) 0.4 x10^3/uL (0.0-0.7) Basophils # (Auto) 0.0 x10^3/uL (0.0-0.2) Glucose (Fingerstick) 161 mg/dL (70-99) Laboratory Tests Test 02/20/20 11:47 02/20/20 16:52 02/21/20 03:00 02/21/20 07:44 Glucose (Fingerstick) 189 mg/dL (70-99) 216 mg/dL (70-99) 161 mg/dL (70-99) White Blood Count 9.0 x10^3/uL (4.0-11.0) Red Blood Count 4.01 x10^6/uL (4.30-5.70) Hemoglobin 12.0 g/dL (13.0-17.5) Hematocrit 35.9 % (39.0-53.0) Mean Corpuscular Volume 89 fL (79-100) Mean Corpuscular Hemoglobin 30 pg (25-35) Mean Corpuscular Hemoglobin Concent 33 g/dL (31-37) Red Cell Distribution Width 13.7 % (11.5-14.5) Platelet Count 269 x10^3/uL (140-400) Neutrophils (%) (Auto) 67 % (31-73) Lymphocytes (%) (Auto) 18 % (24-48) Monocytes (%) (Auto) 10 % (0-9) Eosinophils (%) (Auto) 4 % (0-3) Basophils (%) (Auto) 1 % (0-3) Neutrophils # (Auto) 6.1 x10^3/uL (1.8-7.7) Lymphocytes # (Auto) 1.6 x10^3/uL (1.0-4.8) Monocytes # (Auto) 0.9 x10^3/uL (0.0-1.1) Eosinophils # (Auto) 0.4 x10^3/uL (0.0-0.7) Basophils # (Auto) 0.0 x10^3/uL (0.0-0.2) Microbiology 02/13/20 Gram Stain - Final, Complete 02/13/20 Aerobic and Anaerobic Culture - Final, Complete 02/13/20 Antimicrobic Susceptibility - Final, Complete 02/12/20 Blood Culture - Final, Complete NO GROWTH AFTER 5 DAYS Medications Current Medications Morphine Sulfate (Morphine Sulfate) 4 mg PRN Q15MIN PRN IV/SQ PAIN GREATER THAN 3/10 Last administered on 02/12/20at 12:31; Start 02/12/20 at 12:00; Stop 02/12/20 at 17:37; Status DC Sodium Chloride 1,000 ml @ 1,000 mls/hr Q1H IV Last administered on 02/12/20at 12:31; Start 02/12/20 at 11:58; Stop 02/12/20 at 12:57; Status DC Vancomycin HCl 2 gm/Sodium Chloride 500 ml @ 250 mls/hr 1X ONCE IV ; Start 02/12/20 at 13:00; Stop 02/12/20 at 14:59; Status UNV Piperacillin Sod/ Tazobactam Sod 4.5 gm/Sodium Chloride 100 ml @ 200 mls/hr 1X ONCE IV Last administered on 02/12/20at 13:54; Start 02/12/20 at 13:00; Stop 02/12/20 at 13:29; Status DC Vancomycin HCl 1.25 gm/Sodium Chloride 250 ml @ 166.667 mls/hr 1X ONCE IV Last administered on 02/12/20at 14:33; Start 02/12/20 at 13:15; Stop 02/12/20 at 14:44; Status DC Iohexol (Omnipaque 300 Mg/ml) 60 ml 1X ONCE IV Last administered on 02/12/20at 13:09; Start 02/12/20 at 13:15; Stop 02/12/20 at 13:16; Status DC Sodium Chloride 1,000 ml @ 1,000 mls/hr 1X ONCE IV Last administered on 02/12/20at 14:08; Start 02/12/20 at 14:00; Stop 02/12/20 at 14:59; Status DC Sodium Chloride 500 ml @ 500 mls/hr 1X ONCE IV Last administered on 02/12/20at 14:09; Start 02/12/20 at 14:00; Stop 02/12/20 at 14:59; Status DC Ondansetron HCl (Zofran) 4 mg PRN Q8HRS PRN IV NAUSEA/VOMITING; Start 02/12/20 at 15:15; Stop 02/13/20 at 15:14; Status DC Morphine Sulfate (Morphine Sulfate) 4 mg PRN Q2HR PRN IV PAIN Last administered on 02/13/20at 01:36; Start 02/12/20 at 15:15; Stop 02/13/20 at 15:14; Status DC Insulin Human Regular (HumuLIN R VIAL) 8 unit 1X ONCE IV Last administered on 02/12/20at 16:02; Start 02/12/20 at 15:45; Stop 02/12/20 at 15:46; Status DC Sodium Chloride 1,000 ml @ 100 mls/hr Q10H IV Last administered on 02/17/20at 06:25; Start 02/12/20 at 17:30; Stop 02/17/20 at 10:11; Status DC Piperacillin Sod/ Tazobactam Sod 3.375 gm/Sodium Chloride 50 ml @ 100 mls/hr Q6HRS IV Last administered on 02/21/20at 05:46; Start 02/12/20 at 18:00 Oxycodone/ Acetaminophen (Percocet 5/325) 1 tab PRN Q4HRS PRN PO PAIN Last ad ministered on 02/19/20at 16:03; Start 02/12/20 at 17:45 Insulin Human Lispro (HumaLOG) 8 units TIDAC SQ Last administered on 02/13/20at 18:13; Start 02/13/20 at 07:30; Stop 02/14/20 at 08:55; Status DC Insulin Glargine (Lantus Syringe) 25 unit QHS SQ Last administered on 02/13/20at 21:23; Start 02/12/20 at 21:00; Stop 02/14/20 at 08:07; Status DC Glycopyrrolate (Robinul) 1 mg STK-MED ONCE .ROUTE ; Start 02/13/20 at 08:36; Stop 02/13/20 at 08:36; Status DC Sevoflurane (Ultane) 60 ml STK-MED ONCE IH ; Start 02/13/20 at 08:36; Stop 02/13/20 at 08:36; Status DC Rocuronium Everett (Zemuron) 50 mg STK-MED ONCE .ROUTE ; Start 02/13/20 at 08:36; Stop 02/13/20 at 08:36; Status DC Fentanyl Citrate (Fentanyl 2ml Vial) 100 mcg STK-MED ONCE .ROUTE ; Start 02/13/20 at 08:36; Stop 02/13/20 at 08:36; Status DC Neostigmine Everett (Neostigmine Methylsulfate) 5 mg STK-MED ONCE .ROUTE ; Start 02/13/20 at 08:36; Stop 02/13/20 at 08:36; Status DC Midazolam HCl (Versed) 2 mg STK-MED ONCE .ROUTE ; Start 02/13/20 at 08:36; Stop 02/13/20 at 08:37; Status DC Succinylcholine Chloride (Anectine) 200 mg STK-MED ONCE .ROUTE ; Start 02/13/20 at 08:37; Stop 02/13/20 at 08:38; Status DC Bupivacaine HCl/ Epinephrine Bitart (Sensorcain-Epi 0.5%-1:[id number] Mpf) 30 ml STK-MED ONCE .ROUTE ; Start 02/13/20 at 08:54; Stop 02/13/20 at 08:54; Status DC Ondansetron HCl (Zofran) 4 mg PRN Q6HRS PRN IV NAUSEA/VOMITING; Start 02/13/20 at 09:15; Stop 02/14/20 at 09:14; Status DC Fentanyl Citrate (Fentanyl 2ml Vial) 25 mcg PRN Q5MIN PRN IV MILD PAIN 1-3; Start 02/13/20 at 09:15; Stop 02/14/20 at 09:14; Status DC Fentanyl Citrate (Fentanyl 2ml Vial) 50 mcg PRN Q5MIN PRN IV MODERATE TO SEVERE PAIN; Start 02/13/20 at 09:15; Stop 02/14/20 at 09:14; Status DC Morphine Sulfate (Morphine Sulfate) 1 mg PRN Q10MIN PRN IV SEVERE PAIN 7-10; Start 02/13/20 at 09:15; Stop 02/14/20 at 09:14; Status DC Ringer's Solution 1,000 ml @ 30 mls/hr Q24H IV Last administered on 02/13/20at 09:01; Start 02/13/20 at 09:01; Stop 02/13/20 at 21:00; Status DC Lidocaine HCl (Xylocaine-Mpf 1% 2ml Vial) 2 ml PRN 1X PRN ID PRIOR TO IV START; Start 02/13/20 at 09:15; Stop 02/14/20 at 09:14; Status DC Hydromorphone HCl (Dilaudid) 0.5 mg PRN Q10MIN PRN IV SEV PAIN, Second choice; Start 02/13/20 at 09:15; Stop 02/14/20 at 09:14; Status DC Prochlorperazine Edisylate (Compazine) 5 mg PACU PRN PRN IV NAUSEA, MRX1; Start 02/13/20 at 09:15; Stop 02/14/20 at 09:14; Status DC Phenylephrine HCl (PHENYLEPHRINE in 0.9% NACL PF) 1 mg STK-MED ONCE IV ; Start 02/13/20 at 09:27; Stop 02/13/20 at 09:28; Status DC Insulin Human Lispro (HumaLOG VIAL for OP,RR ONLY) 0-10 units PRN Q1HR PRN SQ PER PROTOCOL Last administered on 02/13/20at 10:30; Start 02/13/20 at 10:30; Stop 02/13/20 at 19:00; Status DC Daptomycin 520 mg/ Sodium Chloride 50 ml @ 100 mls/hr Q24H IV Last administered on 02/15/20at 14:35; Start 02/13/20 at 14:00; Stop 02/16/20 at 09:25; Status DC Insulin Human Lispro (HumaLOG) 8 units 1X ONCE SQ Last administered on 02/13/20at 21:24; Start 02/13/20 at 21:30; Stop 02/13/20 at 21:31; Status DC Insulin Glargine (Lantus Syringe) 15 unit BID SQ ; Start 02/14/20 at 09:00; Stop 02/14/20 at 08:55; Status DC Insulin Glargine (Lantus Syringe) 20 unit BID SQ Last administered on 02/20/20at 21:46; Start 02/14/20 at 09:00 Insulin Human Lispro (HumaLOG) 10 units TIDAC SQ Last administered on 02/20/20at 17:11; Start 02/14/20 at 11:30 Potassium Chloride (Klor-Con) 20 meq 1X ONCE PO Last administered on 02/14/20at 13:00; Start 02/14/20 at 11:30; Stop 02/14/20 at 11:37; Status DC Insulin Human Lispro (HumaLOG) 2 units 1X ONCE SQ Last administered on 02/14/20at 18:36; Start 02/14/20 at 17:30; Stop 02/14/20 at 17:31; Status DC Lactobacillus Rhamnosus (Culturelle) 1 cap BID PO Last administered on 02/20/20at 21:45; Start 02/14/20 at 21:00 Insulin Human Lispro (HumaLOG) 12 units ONCE ONCE SQ Last administered on 02/14/20at 20:14; Start 02/14/20 at 20:00; Stop 02/14/20 at 20:01; Status DC Insulin Human Lispro (HumaLOG) 0-7 UNITS TIDWMEALS SQ Last administered on 02/20/20at 17:10; Start 02/15/20 at 08:00 Dextrose (Dextrose 50%-Water Syringe) 12.5 gm PRN Q15MIN PRN IV SEE COMMENTS; Start 02/14/20 at 20:00 Ringer's Solution 1,000 ml @ 125 mls/hr Q8H IV ; Start 02/17/20 at 10:15; Stop 02/17/20 at 10:16; Status DC Sodium Chloride 1,000 ml @ 100 mls/hr Q10H IV Last administered on 02/20/20at 23:43; Start 02/17/20 at 10:15 Potassium Chloride/Water 100 ml @ 100 mls/hr Q1H IV Last administered on 02/17/20at 14:00; Start 02/17/20 at 11:00; Stop 02/17/20 at 14:59; Status DC Potassium Chloride/Water 100 ml @ 100 mls/hr Q1H IV Last administered on 02/18/20at 16:38; Start 02/18/20 at 11:30; Stop 02/18/20 at 13:29; Status DC Potassium Chloride (Klor-Con) 40 meq 1X ONCE PO Last administered on 02/18/20at 12:52; Start 02/18/20 at 11:30; Stop 02/18/20 at 11:37; Status DC Magnesium Sulfate 50 ml @ 25 mls/hr 1X ONCE IV Last administered on 02/18/20at 16:39; Start 02/18/20 at 15:30; Stop 02/18/20 at 17:29; Status DC Ertapenem 50 ml @ 100 mls/hr PRN 1X PRN IV GIVE PRIOR TO DC; Start 02/19/20 at 12:00; Stop 02/20/20 at 18:00; Status DC Potassium Chloride (Klor-Con) 40 meq 1X ONCE PO Last administered on 02/19/20at 17:54; Start 02/19/20 at 18:00; Stop 02/19/20 at 18:01; Status DC Active Scripts Active Invanz (Ertapenem Sodium) 1 Gm Vial 1 Gm IJ DAILY 14 Days Percocet 5-325 Mg Tablet (Oxycodone/Acetaminophen) 1 Each Tablet 1 Tab PO PRN Q4HRS PRN 7 Days Reported Novolog (Insulin Aspart) 100 Unit/1 Ml Cartridge 8 Unit SQ TIDAC Lantus Solostar (Insulin Glargine,Hum.rec.anlog) 100 Unit/1 Ml Insuln.pen 25 Unit SQ QHS Vitals/I & O Vital Sign - Last 24 Hours 02/20/20 02/20/20 02/20/20 02/20/20 11:08 15:06 19:00 20:06 Temp 98.4 98.2 99.0 98.4 98.2 99.0 Pulse 85 78 84 Resp 18 18 18 B/P (MAP) 126/78 (94) 137/74 (95) 127/78 (94) Pulse Ox 99 97 96 O2 Delivery Room Air Room Air Room Air Room Air 02/20/20 02/21/20 23:00 03:00 Temp 98.9 98.9 98.9 98.9 Pulse 80 83 Resp 18 18 B/P (MAP) 121/70 (87) 132/81 (98) Pulse Ox 95 96 O2 Delivery Room Air Room Air Intake and Output 02/20/20 02/20/20 02/21/20 15:00 23:00 07:00 Intake Total 1250 ml 400 ml 400 ml Output Total 1000 ml 880 ml 950 ml Balance 250 ml -480 ml -550 ml PAPITO PAGE MD February 21, 2020 08:13
[2020-02-21] MEDS: LACTOBACILLUS RHAMNOSUS GG 1 CAPSULE. PO SCH (08:27)
[2020-02-21] MEDS: INSULIN LISPRO 300 UNITS/3 ML VIAL. SQ SCH ×4 (08:35→12:17)
[2020-02-21] MEDS: INSULIN GLARGINE SYRINGE. SQ SCH (08:37)
--- NOTE | 2020-02-21 09:51 | PDOC ---
Infectious Disease Note Subjective: Subjective Patient without complaints Awaiting dressing change today Denies fever, nausea, vomiting, shortness of breath, diarrhea, abdominal pain, rash Otherwise as above Vital Signs: Vital Signs Vital Signs Date Time Temp Pulse Resp B/P (MAP) Pulse Ox O2 Delivery O2 Flow Rate FiO2 02/21/20 07:00 99.2 76 17 114/76 (89) 97 Room Air 99.2 Physical Exam: PHYSICAL EXAM GENERAL: Lying on prone, alert in NAD HEENT: Oral cavity clear, no thrush NECK: Supple LUNGS: Clear bilaterally. HEART: S1, S2 regular. ABDOMEN: Left gluteal wound wound vac in place, no area redness or induration EXTREMITIES: No edema. SKIN: without rash. NEUROLOGIC: Alert and oriented x 3, grossly nonfocal. PSYCHIATRIC: Cooperative, appropriate mood and affect RUE-PICC (02/15) without signs of complications Medications: Inpatient Meds: Current Medications Medications (Trade) Dose Ordered Sig/Ty Start Time Stop Time Status Last Admin Dose Admin Bupivacaine HCl/ Epinephrine Bitart (Sensorcain-Epi 0.5%-1:022294 Mpf) 30 ml STK-MED ONCE 02/13/20 08:54 02/13/20 08:54 DC Daptomycin 520 mg/ Sodium Chloride 50 ml @ 100 mls/hr Q24H 02/13/20 14:00 02/16/20 09:25 DC 02/15/20 14:35 100 MLS/HR Dextrose (Dextrose 50%-Water Syringe) 12.5 gm PRN Q15MIN PRN 02/14/20 20:00 Ertapenem 50 ml @ 100 mls/hr PRN 1X PRN 02/19/20 12:00 02/20/20 18:00 DC Fentanyl Citrate (Fentanyl 2ml Vial) 50 mcg PRN Q5MIN PRN 02/13/20 09:15 02/14/20 09:14 DC Glycopyrrolate (Robinul) 1 mg STK-MED ONCE 02/13/20 08:36 02/13/20 08:36 DC Hydromorphone HCl (Dilaudid) 0.5 mg PRN Q10MIN PRN 02/13/20 09:15 02/14/20 09:14 DC Insulin Glargine (Lantus Syringe) 20 unit BID 02/14/20 09:00 02/21/20 08:37 20 UNIT Insulin Human Lispro (HumaLOG VIAL for OP,RR ONLY) 0-10 units PRN Q1HR PRN 02/13/20 10:30 02/13/20 19:00 DC 02/13/20 10:30 8 UNIT Insulin Human Lispro (HumaLOG) 0-7 UNITS TIDWMEALS 02/15/20 08:00 02/21/20 08:36 3 UNITS Insulin Human Regular (HumuLIN R VIAL) 8 unit 1X ONCE 02/12/20 15:45 02/12/20 15:46 DC 02/12/20 16:02 5 UNIT Iohexol (Omnipaque 300 Mg/ml) 60 ml 1X ONCE 02/12/20 13:15 02/12/20 13:16 DC 02/12/20 13:09 60 ML Lactobacillus Rhamnosus (Culturelle) 1 cap BID 02/14/20 21:00 02/21/20 08:27 1 CAP Lidocaine HCl (Xylocaine-Mpf 1% 2ml Vial) 2 ml PRN 1X PRN 02/13/20 09:15 02/14/20 09:14 DC Magnesium Sulfate 50 ml @ 25 mls/hr 1X ONCE 02/18/20 15:30 02/18/20 17:29 DC 02/18/20 16:39 25 MLS/HR Midazolam HCl (Versed) 2 mg STK-MED ONCE 02/13/20 08:36 02/13/20 08:37 DC Morphine Sulfate (Morphine Sulfate) 1 mg PRN Q10MIN PRN 02/13/20 09:15 02/14/20 09:14 DC Neostigmine [place] (Neostigmine Methylsulfate) 5 mg STK-MED ONCE 02/13/20 08:36 02/13/20 08:36 DC Ondansetron HCl (Zofran) 4 mg PRN Q6HRS PRN 02/13/20 09:15 02/14/20 09:14 DC Oxycodone/ Acetaminophen (Percocet 5/325) 1 tab PRN Q4HRS PRN 02/12/20 17:45 02/19/20 16:03 1 TAB Phenylephrine HCl (PHENYLEPHRINE in 0.9% NACL PF) 1 mg STK-MED ONCE 02/13/20 09:27 02/13/20 09:28 DC Piperacillin Sod/ Tazobactam Sod 3.375 gm/Sodium Chloride 50 ml @ 100 mls/hr Q6HRS 02/12/20 18:00 02/21/20 05:46 100 MLS/HR Piperacillin Sod/ Tazobactam Sod 4.5 gm/Sodium Chloride 100 ml @ 200 mls/hr 1X ONCE 02/12/20 13:00 02/12/20 13:29 DC 02/12/20 13:54 200 MLS/HR Potassium Chloride/Water 100 ml @ 100 mls/hr Q1H 02/18/20 11:30 02/18/20 13:29 DC 02/18/20 16:38 100 MLS/HR Potassium Chloride (Klor-Con) 40 meq 1X ONCE 02/19/20 18:00 02/19/20 18:01 DC 02/19/20 17:54 40 MEQ Prochlorperazine Edisylate (Compazine) 5 mg PACU PRN PRN 02/13/20 09:15 02/14/20 09:14 DC Ringer's Solution 1,000 ml @ 125 mls/hr Q8H 02/17/20 10:15 02/17/20 10:16 DC Rocuronium [place] (Zemuron) 50 mg STK-MED ONCE 02/13/20 08:36 02/13/20 08:36 DC Sevoflurane (Ultane) 60 ml STK-MED ONCE 02/13/20 08:36 02/13/20 08:36 DC Sodium Chloride 1,000 ml @ 100 mls/hr Q10H 02/17/20 10:15 02/20/20 23:43 100 MLS/HR Succinylcholine Chloride (Anectine) 200 mg STK-MED ONCE 02/13/20 08:37 02/13/20 08:38 DC Vancomycin HCl 1.25 gm/Sodium Chloride 250 ml @ 166.667 mls/hr 1X ONCE 02/12/20 13:15 02/12/20 14:44 DC 02/12/20 14:33 166.667 MLS/HR Vancomycin HCl 2 gm/Sodium Chloride 500 ml @ 250 mls/hr 1X ONCE 02/12/20 13:00 02/12/20 14:59 UNV Labs: Lab Laboratory Tests Test 02/20/20 11:47 02/20/20 16:52 02/21/20 03:00 02/21/20 07:44 Glucose (Fingerstick) 189 mg/dL (70-99) 216 mg/dL (70-99) 161 mg/dL (70-99) White Blood Count 9.0 x10^3/uL (4.0-11.0) Red Blood Count 4.01 x10^6/uL (4.30-5.70) Hemoglobin 12.0 g/dL (13.0-17.5) Hematocrit 35.9 % (39.0-53.0) Mean Corpuscular Volume 89 fL (79-100) Mean Corpuscular Hemoglobin 30 pg (25-35) Mean Corpuscular Hemoglobin Concent 33 g/dL (31-37) Red Cell Distribution Width 13.7 % (11.5-14.5) Platelet Count 269 x10^3/uL (140-400) Neutrophils (%) (Auto) 67 % (31-73) Lymphocytes (%) (Auto) 18 % (24-48) Monocytes (%) (Auto) 10 % (0-9) Eosinophils (%) (Auto) 4 % (0-3) Basophils (%) (Auto) 1 % (0-3) Neutrophils # (Auto) 6.1 x10^3/uL (1.8-7.7) Lymphocytes # (Auto) 1.6 x10^3/uL (1.0-4.8) Monocytes # (Auto) 0.9 x10^3/uL (0.0-1.1) Eosinophils # (Auto) 0.4 x10^3/uL (0.0-0.7) Basophils # (Auto) 0.0 x10^3/uL (0.0-0.2) Micro RUN DATE: 02/15/20 [facility] *LIVE* PAGE 1 RUN TIME: 1033 Specimen Inquiry PATIENT: MARIA LUISA MANLEY ACCT: [id number] LOC: [address] [place] [address] U: [id number] AGE/SX: 64/M ROOM: [facility] RE02/12/[address]: PAPITO HERNANDEZ III, DO : 1955 BED: 1 DIS: STATUS: ADM IN TLOC: SPEC #: [id number] EULALIA: 02/13/20 STATUS: RES REQ #: [id number] RECD: 02/13/20-[address]: PAPITO HERNANDEZ III, DO SOURCE: DRAINAGE ENTR: 02/13/20-[address]: BRIANA SANTANA MD [facility]: KB SYED MD, KATHLEEN R MD ORDERED: ALEX/KHANH/KAREN COMMENTS: LEFT GLUTEAL ABSCESS Procedure Result GRAM STAIN Final Final GRAM POSITIVE COCCI:FEW SQUAMOUS EPI CELL:NONE SEEN PMN (WBCs):RARE Unless otherwise specified, Testing Performed by: [address] [address] For Inquires, the Physician may contact the Microbiology department at [phone] ANAEROBIC-AEROBIC CULTURE Preliminary Preliminary MODERATE GRAM POSITIVE COCCI on 02/14/20 at 1040 FINAL ID= [STAPHYLOCOCCUS AUREUS] STAPHYLOCOCCUS AUREUS ANTIMICROBIAL SUSCEPTIBILITY Preliminary Comment POS SANJUANITA TYPE 38 STAPHYLOCOCCUS AUREUS ANTIBIOTIC RESULT INTERPRETATION AZITHROMYCIN <=2 S CLINDAMYCIN 0.5 S CEFOXITIN SCREEN <=4 NEG CIPROFLOXACIN >2 R CEFTAROLINE <=0.5 S DAPTOMYCIN <=0.5 S ERYTHROMYCIN 0.5 S GENTAMICIN <=4 S LINEZOLID 2 S LEVOFLOXACIN 4 I OXACILLIN <=0.25 S PENICILLIN <=0.03 Renard RIFAMPIN <=1 S TRIMETHOPRIM/SULFAMETHOXAZOLE <=0.5/9.5 S TETRACYCLINE <=4 S CONTINUED ON NEXT PAGE RUN DATE: 02/15/20 [facility] *LIVE* PAGE 2 RUN TIME: 1033 Specimen Inquiry SPEC: [id number] PATIENT: MARIA LUISA MANLEY [id number] (Continued) Procedure Result ANTIMICROBIAL SUSCEPTIBILITY Preliminary (continued) VANCOMYCIN 1 S Unless otherwise specified, Testing Performed by: [address] [address] For Inquires, the Physician may contact the Microbiology department at [phone] Objective: Assessment: 1. Left gluteal abscess, status post I and D, 02/13/2020.cult staph aureus MSSA 2. Postop hypotension, status post IV fluid infusion.resolved 3. Leukocytosis. 4. Lactic acidosis. 5. Acute kidney injury. 6. History of right nephrectomy for renal cell carcinoma. 7. Hyponatremia. 8. Diabetes mellitus. 9. Arrhythmia; NSVT . Echo with preserved LV systolic function. Plan: Plan of Care Continue Zosyn pending discharge Transition to Invanz 1 gm first dose here before discharge ,discussed with pharmacy, discussed with RN Continue Invanz for at least 2 weeks ,prescription in chart Social work to assist for discharge planning PICC care Anticipate slow response due to close proximity with anal canal and fecal soilage Wound /VAC care as directed Probiotics Q. Tuesday labs CBC, BUN, creatinine, fax results to [phone] Follow-up ID clinic in 2 weeks March 05 at 2;15 pm, phone [phone] Supportive care. Discussed with nursing staff GABY SANTANA MD February 21, 2020 09:51
--- NOTE | 2020-02-21 11:09 | PDOC3 ---
Discharge Summary Visit Information Date of Admission: February 12, 2020 Date of Discharge: February 21, 2020 Admitting Diagnosis: Gluteal abscess Final Diagnosis Problems Medical Problems: (1) Gluteal abscess Status: Acute (2) Severe sepsis Status: Acute Brief Hospital Course Allergies Allergies Coded Allergies Type Severity Reaction Last Updated Verified yellow dye Allergy Intermediate Rash 10/22/19 Yes Vital Signs Vital Signs Date Time Temp Pulse Resp B/P (MAP) Pulse Ox O2 Delivery O2 Flow Rate FiO2 02/21/20 07:00 99.2 76 17 114/76 (89) 97 Room Air 99.2 Lab Results Laboratory Tests Test 02/19/20 11:20 02/19/20 13:45 02/19/20 16:24 02/19/20 20:37 Glucose (Fingerstick) 197 mg/dL (70-99) 80 mg/dL (70-99) 255 mg/dL (70-99) Sodium Level 141 mmol/L (136-145) Potassium Level 3.2 mmol/L (3.5-5.1) Chloride Level 104 mmol/L (98-107) Carbon Dioxide Level 28 mmol/L (21-32) Anion Gap 9 (6-14) Blood Urea Nitrogen 9 mg/dL (8-26) Creatinine 1.4 mg/dL (0.7-1.3) Estimated GFR (Cockcroft-Gault) 51.4 Glucose Level 165 mg/dL (70-99) Calcium Level 7.8 mg/dL (8.5-10.1) Magnesium Level 1.9 mg/dL (1.8-2.4) Test 02/20/20 06:00 02/20/20 07:21 02/20/20 11:47 02/20/20 16:52 Sodium Level 137 mmol/L (136-145) Potassium Level 4.0 mmol/L (3.5-5.1) Chloride Level 102 mmol/L (98-107) Carbon Dioxide Level 33 mmol/L (21-32) Anion Gap 2 (6-14) Blood Urea Nitrogen 14 mg/dL (8-26) Creatinine 1.2 mg/dL (0.7-1.3) Estimated GFR (Cockcroft-Gault) 61.3 Glucose Level 252 mg/dL (70-99) Calcium Level 8.0 mg/dL (8.5-10.1) Glucose (Fingerstick) 209 mg/dL (70-99) 189 mg/dL (70-99) 216 mg/dL (70-99) Test 02/21/20 03:00 02/21/20 07:44 White Blood Count 9.0 x10^3/uL (4.0-11.0) Red Blood Count 4.01 x10^6/uL (4.30-5.70) Hemoglobin 12.0 g/dL (13.0-17.5) Hematocrit 35.9 % (39.0-53.0) Mean Corpuscular Volume 89 fL (79-100) Mean Corpuscular Hemoglobin 30 pg (25-35) Mean Corpuscular Hemoglobin Concent 33 g/dL (31-37) Red Cell Distribution Width 13.7 % (11.5-14.5) Platelet Count 269 x10^3/uL (140-400) Neutrophils (%) (Auto) 67 % (31-73) Lymphocytes (%) (Auto) 18 % (24-48) Monocytes (%) (Auto) 10 % (0-9) Eosinophils (%) (Auto) 4 % (0-3) Basophils (%) (Auto) 1 % (0-3) Neutrophils # (Auto) 6.1 x10^3/uL (1.8-7.7) Lymphocytes # (Auto) 1.6 x10^3/uL (1.0-4.8) Monocytes # (Auto) 0.9 x10^3/uL (0.0-1.1) Eosinophils # (Auto) 0.4 x10^3/uL (0.0-0.7) Basophils # (Auto) 0.0 x10^3/uL (0.0-0.2) Glucose (Fingerstick) 161 mg/dL (70-99) Laboratory Tests Test 02/20/20 11:47 02/20/20 16:52 02/21/20 03:00 02/21/20 07:44 Glucose (Fingerstick) 189 mg/dL (70-99) 216 mg/dL (70-99) 161 mg/dL (70-99) White Blood Count 9.0 x10^3/uL (4.0-11.0) Red Blood Count 4.01 x10^6/uL (4.30-5.70) Hemoglobin 12.0 g/dL (13.0-17.5) Hematocrit 35.9 % (39.0-53.0) Mean Corpuscular Volume 89 fL (79-100) Mean Corpuscular Hemoglobin 30 pg (25-35) Mean Corpuscular Hemoglobin Concent 33 g/dL (31-37) Red Cell Distribution Width 13.7 % (11.5-14.5) Platelet Count 269 x10^3/uL (140-400) Neutrophils (%) (Auto) 67 % (31-73) Lymphocytes (%) (Auto) 18 % (24-48) Monocytes (%) (Auto) 10 % (0-9) Eosinophils (%) (Auto) 4 % (0-3) Basophils (%) (Auto) 1 % (0-3) Neutrophils # (Auto) 6.1 x10^3/uL (1.8-7.7) Lymphocytes # (Auto) 1.6 x10^3/uL (1.0-4.8) Monocytes # (Auto) 0.9 x10^3/uL (0.0-1.1) Eosinophils # (Auto) 0.4 x10^3/uL (0.0-0.7) Basophils # (Auto) 0.0 x10^3/uL (0.0-0.2) Brief Hospital Course Mr Smith is a 64yo M [employer] w/ PMHx Diabetes, hypertension, gastroparesis, renal cell carcinoma, status post right nephrectomy, history of CVA, peripheral neuropathy, history of Strep intermedius bacteremia in 02/2019, left fifth metatarsal osteomyelitis or joint infection and abscess, status post I and D and partial ray amputation who presented to the ED with gluteal pain starting 2 days prior to admission. Was septic with SHA. CT abdomen and pelvic CT showed fat stranding and soft tissue thickening along the intergluteal cleft on the left with a vague area of hypoattenuation just deep to the skin may be poorly formed or developing abscess. This measures about 5 x 2 x 4 cm in size and extends towards the perineum. No definite perianal or perirectal abscess. Surgery consulted for left gluteal abscess with I and D and drainage with debridement. ID consulted as well. 02/16: K 2.9 02/17: Afebrile overnight, K 2.9. 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 He is learning how to have a bowel movement feels like he is able to keep his wound site clean. Pain reasonably controlled. No SOB or CP. 02/18: Afebrile. Pain well controlled /10. Tolerating wound vac well 02/19: K4, CR 1.2, pain well controlled. Afebrile, no SOB or CP. Able to transition with assistance well now. Will need a final wound VAC change prior to discharge and home infusions of Invanz. Feeling improved today. Awaiting VAC change and debridement. Afebrile, no S OB or CP Problem list: Left gluteal abscess; s/p I and D Leukocytosis secondary to the above Lactic acidosis secondary to above mentioned infection History of diabetes type 2 insulin requiring Arrhythmia; NSVT vs aberrant AFIB H/o renal CA s/p nephrectomy Acute renal failure secondary to vasomotor etiology most likely S/P mechanical fall secondary to slipping Hypokalemia Plan: Follow cultures Continue broad spectrum antibiotics Continue wound VAC care follow recommendations from design and sales consultant Discharge once arrangements for outpatient antibiotic therapy and wound VAC care has been arranged by case management Echo: The left ventricle is normal size. The left ventricular systolic function is normal and the ejection fraction is within normal range. The Ejection Fraction is 60-65%. There is borderline to mild concentric left ventricular hypertrophy. Doppler and Color Flow revealed no significant aortic regurgitation. There is no significant aortic valvular stenosis. Doppler and Color-flow revealed trace mitral regurgitation. Doppler and Color Flow revealed trace tricuspid regurgitation with an estimated PAP of 26 mmHg. Plan: Discharge home 02/21/2020 Transition to Invanz 1 gm first dose here before discharge ,discussed with pharmacy per ID, will continue Invanz for at least 2 weeks PICC correction health, home infusions. Wound clinic visits 1-3 times weekly Wound /VAC care as directed Probiotics Q. Tuesday labs CBC, BUN, creatinine, fax results to [phone] Follow-up ID clinic in 2 weeks March 05 at 2;15 pm, phone [phone] Greater than 30 minutes spent on d/c home Discharge Information Condition at Discharge: Improved Follow Up: Weeks (1) Disposition/Orders: D/C to Home w/ HH Scheduled Ertapenem Sodium (Invanz) 1 Gm Vial, 1 GM IJ DAILY for Abscess for 14 Days, #14 Prescribed by: PAPITO PAGE MD on 02/21/20 0809 Insulin Aspart (Novolog) 100 Unit/1 Ml Cartridge, 8 UNIT SQ TIDAC for diabetes, (Reported) Entered as Reported by: TIAN KOCH on 02/12/201733 Last Taken: Unknown Dose on Unknown Date & Time Last Action: Converted on 02/12/201733 by TIAN KOCH Insulin Glargine,Hum.rec.anlog (Lantus Solostar) 100 Unit/1 Ml Insuln.pen, 25 UNIT SQ QHS for diabetes, #15 Ref 3 (Reported) Entered as Reported by: TIAN KOCH on 02/12/201731 Last Taken: Unknown Dose on Unknown Date & Time Last Action: Converted on 02/12/201733 by TIAN KOCH Scheduled PRN Oxycodone/Apap 5-325 (Percocet 5-325 Mg Tablet ) 1 Each Tablet, 1 TAB PO PRN Q4HRS PRN for PAIN for 7 Days, #30 Ref 0 Prescribed by: LEON CHOW on 10/23/19 1114 Last Action: Continued on 02/12/201733 by PAPITO SANDOVAL MD February 21, 2020 11:09
[2020-02-21 11:49] VITALS: BP 104/68
--- NOTE | 2020-02-21 13:24 | NUR ---
SS following up with discharge planning. Discharge order on the chart for home healthcare. Discharge orders faxed to [facility], ; fax [phone]. [facility] notified of discharge. Pt's RN notified.
[2020-02-21] MEDS ORDERED: ERTAPENEM 1GM IVPB (GENERIC) 50 ML IV ONE (13:30)
[2020-02-21] MEDS: IV NORMAL SALINE 1000ML BAG 1,000 ML IV SCH (14:15)
[2020-02-21] MEDS: oxyCODONE/APAP 5/325 1 TAB TABLET PO PRN (14:33)
--- NOTE | 2020-02-21 15:22 | NUR ---
Wound Care Wound Type/Assessment: Left gluteal abscess, s/p surgical I&D. Dressing and vac foam removed, wound cleaned with saline. Wound bed beefy red with a minimal to mod amount of scattered yellow slough throughout wound bed, periwound dark red, no odor noted. Treatment Recommendations/Plan: Periwound skin prepped with skin prep and ostomy ring applied. 1 piece of black foam placed into wound bed, vac showing strong seal at -125 mmHg continuous suction. Pt tolerated with minimal amount of pain, pt was premedicated with pain meds. Pt connected to home wound vac at this time, [facility]. Home vac case and supplies left in patient's room to take home. Education provided: to pt re: benefits of vac therapy, f/u in the [facility] after d/c on Tuesday. Michael MCLEOD to see on Tuesday, pt has received vac approval from [facility] for home vac, OOP cost is $14/day, pt aware and agreeable. Offloading surface/device: no laying directly on buttocks. Recommended Referrals/Tests: N/A Discharge Recommendations for dressings: wound vac until depth has filled in and wound size has decreased. Addendum: 02/21/20 at 1532 by Meghan Mccoy RN Wheelchair cushion ordered for pt to use while seated.
[2020-02-21 15:55] VITALS: BP 141/90
--- NOTE | 2020-02-21 17:26 | NUR ---
Discharge Note: MARIA LUISA MANLEY Discharge instructions and discharge home medications reviewed with Patient and a copy given. All questions have been answered and understanding verbalized. The following instructions and handouts were given: PICC line Discontinued lines and drains: intact. Patient discharged to Home w/services with Spouse via Ambulated
[2020-02-22] MEDS ORDERED: OXYC1TAB15 PO (17:26)
== END 2020-02-21 17:28 | disposition home health service (06) | DRG 853 ==
LOC: ER 10:36 → 4 NORTH 15:01 → 6 SOUTH 16:45
PROVIDERS: ADMIT Internal Medicine; ATTEND Internal Medicine
PROC: 0JB70ZZ Excision of Back Subcutaneous Tissue and Fascia, Open Approach (ICD-10-PCS; 2020-02-13)
PROC: 02HV33Z Insertion of Infusion Device into Superior Vena Cava, Percutaneous Approach (ICD-10-PCS; principal; 2020-02-16)
PROC: B548ZZA Ultrasonography of Superior Vena Cava, Guidance (ICD-10-PCS; 2020-02-16)
DX: A41.9 Sepsis, unspecified organism (principal); N17.0 Acute kidney failure with tubular necrosis; L02.31 Cutaneous abscess of buttock; E87.1 Hypo-osmolality and hyponatremia; E87.2 Acidosis; I47.2 Ventricular tachycardia; L03.90 Cellulitis, unspecified; N17.9 Acute kidney failure, unspecified; R65.20 Severe sepsis without septic shock; E11.42 Type 2 diabetes mellitus with diabetic polyneuropathy; E87.6 Hypokalemia; I10 Essential (primary) hypertension; I95.81 Postprocedural hypotension; K31.84 Gastroparesis; K57.30 Diverticulosis of large intestine without perforation or abscess without bleeding; L05.91 Pilonidal cyst without abscess; Z79.4 Long term (current) use of insulin; Z82.49 Family history of ischemic heart disease and other diseases of the circulatory system; Z83.3 Family history of diabetes mellitus; Z85.528 Personal history of other malignant neoplasm of kidney; Z86.73 Personal history of transient ischemic attack (TIA), and cerebral infarction without residual deficits; Z90.5 Acquired absence of kidney; Z88.8 Allergy status to other drugs, medicaments and biological substances
CPT/HCPCS: 36415; 36569; 74177; 80048; 80053; 80061; 82962; 83605; 83735; 84132; 84443; 85007; 85025; 85610; 85730; 87040; 87071; 87075; 93306; 96361; 96365; 96366; 96367; 96375; A7015; J0330; J0878; J1335; J1815; J2250; J2270; J2370; J2543; J2710; J3010; J3370; J3475; J3480; J3490; J7030; J7040; J7050; J7120; Q9967; 99285-25; A4461; G0378